=== PATIENT | male | born 1965 ===

== ENCOUNTER 2020-05-02 15:36 | Outpatient (REF) | payer OTHER, SELFPAY ==
[2020-05-02 16:28] LABS: Estimated Average Glucose 237 mg/dL; Hemoglobin A1c % 9.9 %
[2020-05-02 17:07] LABS: Alanine Aminotransferase 20 U/L (0-40); Albumin Level 4.3 g/dL (3.5-5.0); Alkaline Phosphatase 89 U/L (39-117); Anion Gap 13 (12-20); Aspartate Amino Transferase 17 U/L (5-37); Bilirubin Total 0.2 mg/dL (0.0-1.0); Blood Urea Nitrogen 17 mg/dL (9-16); Carbon Dioxide 26 mmol/L (22-29); Chloride 103 mmol/L (96-108); Estimated Glomerular Filt Rate > 60; Glucose Random 251 mg/dL (60-115); Potassium 4.7 mmol/L (3.3-5.1); Sodium 137 mmol/L (135-145); Total Protein 7.5 g/dL (6.5-8.0)
== END 2020-05-02 15:37 | disposition home or self-care (01) ==
LOC: HO.LAB 15:36
PROVIDERS: PCP Internal Medicine; Visit Provider Internal Medicine
DX: E11.9 Type 2 diabetes mellitus without complications (principal); I10 Essential (primary) hypertension
CPT/HCPCS: 36415; 80053; 83036

== ENCOUNTER 2020-05-11 16:03 | Emergency (ER) | payer OTHER, SELFPAY ==
--- NOTE | ~2020-05-11 | XR_ITS ---
EXAMINATION: XR CHEST CLINICAL INFORMATION: Cough COMPARISON: None TECHNIQUE: Frontal portable view of the chest was obtained. 8:24 PM FINDINGS: No significant abnormality is noted involving the heart, lungs, mediastinum, bony thorax or soft tissues. XR/XR chest 1V IMPRESSION: Unremarkable examination.
[2020-05-11 19:31] VITALS: BP 118/73; PULSE 74; RESP 16; TEMP 36.8; O2SAT 96; BMI 38.0
--- NOTE | 2020-05-11 20:03 | ED_ITS ---
HPI - General Adult General Chief complaint: General Medical Stated complaint: HBS Source: patient Mode of arrival: ambulatory Limitations: no limitations History of Present Illness HPI narrative: 54-year-old male past medical history of insulin-dependent diabetes, hypertension and obesity presents with several days of elevated glucose levels. He states that his blood sugars have been running on the 400 range which is abnormal for him. Today he had taken additional 12 units of insulin to bring his blood sugar down to 180. He does eat [employer] on a regular basis, drinks diet Coke, and eats rice and beans on a daily basis. He has been more thirsty and has been urinating much more than usual. He denies fevers or chills, chest pain or pressure, palpitations, shortness breath, abdominal pain, abdominal distention, pyuria, hematuria, diarrhea, constipation, edema, dizziness, weakness, lightheadedness, and edema. Related Data Allergies Allergy/AdvReac Type Severity Reaction Status Date / Time No Known Allergies Allergy Unverified 11/15/19 15:35 [No Known Allergies*] CHANTIX Allergy Unknown Uncoded 12/02/17 00:00 LISNOPRIL Allergy Unknown Uncoded 12/02/17 00:00 Review of Systems Review of Systems: Constitutional: No Fever, No Chills ENT/Mouth: No sore throat Eyes: No Eye Pain, No Swelling, No Redness Cardiovascular: No Chest Pain, No SOB Respiratory: No Cough, No Sputum, No Wheezing Gastrointestinal: No Nausea, no Vomiting, No Diarrhea, no abdominal pain Genitourinary: No Dysuria, positive urinary frequency, no Hematuria, no Flank Pain, no hesitancy Musculoskeletal: No joint pain, No Myalgias Skin: No Skin Lesions, No rash Neuro: No Weakness, No Numbness, No Headache Psych: No Anxiety/Panic, No Depression Heme/Lymph: No Bruising, No Lymphadenopathy Endocrine: Positive Polyuria, positive Polydipsia Yes all other systems are reviewed and are negative [facility] Past Medical History Attestation statement: The following information was validated with the patient. Source: unable to obtain Medical History Diabetes Hypertension Social History Social History Advance Directives: No Advance Directives Information Provided: Yes Physical Exam Vital Signs: Vital Signs: Last Vital Signs Temp 98.2 F 05/11/20 19:31 Pulse 74 05/11/20 19:31 Resp 16 05/11/20 19:31 BP 118/73 05/11/20 19:31 Pulse Ox 96 05/11/20 19:31 Body Mass Index 38.0 Appearance: Alert. Oriented X3. No acute distress. Eyes: Pupils equal, round and reactive to light. EOMI, sclera nonicteric ENT: Pharynx normal. Moist mucous membranes Neck: Normal inspection. Neck supple. No JVD CVS: Normal heart rate and rhythm. Pulses normal. Respiratory: No respiratory distress. Lung sounds clear to auscultation all lobes Abdomen: Soft and nontender. Obese Skin: Skin warm and dry. Normal skin color. Normal skin turgor. Extremities: No lower extremity edema. Moves all extremities against resistance, strength 5/5 to all extremities Neuro: No motor deficit. No sensory deficit. Gait well balanced well coordinated, cranial nerves 2-12 intact Course Course Course Narrative: 54-year-old male with diabetes, hypertension, and obesity presents with several days of elevated glucose, polyuria and excessive thirst. He needed to take an additional 12 units of insulin today to reduce his blood sugar to 183 from 400. He is not on any steroids, does not describe any illness, and does not adhere to a diabetic diet. Plan of care is for CBC, Chem 7, urinalysis and chest x-ray. CBC mild leukocytosis at 13, could possibly consistent with elevated glucose, urinalysis and chest x-ray are negative. Abdominal exam is nontender to palpation, negative Navarro, McBurney, no CVA tenderness. Plan of care is for patient to follow-up with his primary care physician as he may need medication adjustments. Patient verbalized understanding of and agrees to plan of care discharge home. Medical Decision Making Differential Diagnosis Differential Diagnosis: UTI, URI, non adherence to diabetic diet Medical Records Medical records reviewed: Yes I reviewed the patient's medical records. Lab Data Lab results reviewed: Yes I reviewed the patient's lab results. Result diagrams: 05/11/20 20:35 05/11/20 20:35 Labs: Lab Results 05/11/20 05/11/20 05/11/20 Range/Units 20:17 20:35 20:35 WBC 13.1 H (4.8-10.8) X10*3/uL RBC 5.26 (4.60-5.80) X10*6/uL Hgb 14.8 (14.0-18.0) g/dl Hct 45.1 (42-52) % MCV 85.7 (80-98) fL MCH 28.1 (27.0-33.0) pg MCHC 32.8 (31.0-36.0) g/dl RDW 13.0 (11.0-16.0) % Plt Count 316 (160-400) X10*3/uL MPV 11.6 (9.4-12.4) fL Immature Gran % (Auto) 0.4 (0.0-0.4) % Neut % (Auto) 53.3 (45-73) % Lymph % (Auto) 34.6 (20-40) % [place] % (Auto) 8.1 (2-11) % Eos % (Auto) 2.8 (0-4) % Baso % (Auto) 0.8 (0-2) % Lymph # (Auto) 4.6 (1.2-4.9) X10*3/uL [place] # (Auto) 1.1 (0.1-1.2) X10*3/uL Eos # (Auto) 0.4 (0.0-0.4) X10*3/uL Baso # (Auto) 0.1 (0.0-0.2) X10*3/uL Abs Immat Gran (auto) 0.05 H (0.00-0.03) X10*3/uL Absolute Neuts (auto) 7.0 (2.0-8.3) X10*3/uL Absolute Nucleated RBC 0.000 (0.0-0.012) X10*3/uL Nucleated RBC % (auto) 0.0 (0.0-0.2) /100WBC Sodium 139 (135-145) mmol/L Potassium 4.7 (3.3-5.1) mmol/L Chloride 103 (96-108) mmol/L Carbon Dioxide 28 (22-29) mmol/L Anion Gap 13 (12-20) BUN 19 H (9-16) mg/dL Creatinine 1.19 (0.5-1.4) mg/dL Estim Creat Clear Calc 91.1 Estimated GFR > 60 POC Glucose 198 H (60-115) mg/dL Random Glucose 183 H (60-115) mg/dL Calcium 10.2 (8.4-10.2) mg/dL Total Bilirubin 0.7 (0.0-1.0) mg/dL Direct Bilirubin 0.2 (0.0-0.5) mg/dL AST 22 (5-37) U/L ALT 24 (0-40) U/L Alkaline Phosphatase 94 (39-117) U/L Total Protein 7.6 (6.5-8.0) g/dL Albumin 4.2 (3.5-5.0) g/dL Lipase 32 (8-78) U/L Urine Color Urine Appearance Urine pH (5.0-8.0) Ur Specific [place] (1.005-1.025) Urine Protein (NEG-TRACE) MG/DL Urine Glucose (UA) (NEG) MG/DL Urine Ketones (NEG) MG/DL Urine Blood (NEG) Urine Nitrite (NEG) Ur Leukocyte Esterase (NEG) 05/11/20 Range/Units 20:35 WBC (4.8-10.8) X10*3/uL RBC (4.60-5.80) X10*6/uL Hgb (14.0-18.0) g/dl Hct (42-52) % MCV (80-98) fL MCH (27.0-33.0) pg MCHC (31.0-36.0) g/dl RDW (11.0-16.0) % Plt Count (160-400) X10*3/uL MPV (9.4-12.4) fL Immature Gran % (Auto) (0.0-0.4) % Neut % (Auto) (45-73) % Lymph % (Auto) (20-40) % [place] % (Auto) (2-11) % Eos % (Auto) (0-4) % Baso % (Auto) (0-2) % Lymph # (Auto) (1.2-4.9) X10*3/uL [place] # (Auto) (0.1-1.2) X10*3/uL Eos # (Auto) (0.0-0.4) X10*3/uL Baso # (Auto) (0.0-0.2) X10*3/uL Abs Immat Gran (auto) (0.00-0.03) X10*3/uL Absolute Neuts (auto) (2.0-8.3) X10*3/uL Absolute Nucleated RBC (0.0-0.012) X10*3/uL Nucleated RBC % (auto) (0.0-0.2) /100WBC Sodium (135-145) mmol/L Potassium (3.3-5.1) mmol/L Chloride (96-108) mmol/L Carbon Dioxide (22-29) mmol/L Anion Gap (12-20) BUN (9-16) mg/dL Creatinine (0.5-1.4) mg/dL Estim Creat Clear Calc Estimated GFR POC Glucose (60-115) mg/dL Random Glucose (60-115) mg/dL Calcium (8.4-10.2) mg/dL Total Bilirubin (0.0-1.0) mg/dL Direct Bilirubin (0.0-0.5) mg/dL AST (5-37) U/L ALT (0-40) U/L Alkaline Phosphatase (39-117) U/L Total Protein (6.5-8.0) g/dL Albumin (3.5-5.0) g/dL Lipase (8-78) U/L Urine Color YELLOW Urine Appearance CLEAR Urine pH 5.0 (5.0-8.0) Ur Specific [place] >= 1.030 H (1.005-1.025) Urine Protein NEG (NEG-TRACE) MG/DL Urine Glucose (UA) 250 H (NEG) MG/DL Urine Ketones NEG (NEG) MG/DL Urine Blood NEG (NEG) Urine Nitrite NEG (NEG) Ur Leukocyte Esterase NEG (NEG) Imaging Data Chest x-ray: Attestation: I personally reviewed and interpreted this imaging study as follows: Radiologist's impression: EXAMINATION: XR CHEST CLINICAL INFORMATION: Cough COMPARISON: None TECHNIQUE: Frontal portable view of the chest was obtained. 8:24 PM FINDINGS: No significant abnormality is noted involving the heart, lungs, mediastinum, bony thorax or soft tissues. XR/XR chest 1V IMPRESSION: Unremarkable examination. Discharge Plan Discharge Clinical Impression: Hyperglycemia due to type 2 diabetes mellitus Qualifiers: Diabetes mellitus director long term care insulin use: with custodial use Qualified Code(s): E11.65 - Type 2 diabetes mellitus with hyperglycemia Patient Disposition: Home, Self-Care Instructions: Type 2 Diabetes Management for Adults (ED) Additional Instructions: You were evaluated for elevated blood sugar. Please continue to use insulin as directed. Please follow-up with primary care physician as you may need her medications adjusted. Your CBC shows a mildly elevated white count at 13.1 which could be consistent with your elevated blood sugars over the past several days. Your chest x-ray is negative, urinalysis is negative. There is no indication of infection at this time. Thank you for choosing this emergency department for evaluation. Please follow-up with primary care physician as needed. Return to the emergency department for any new, concerning, or worsening symptoms. Interventions: ED Discharge Assessment Last Done: 05/11/20 22:11 Discharge Date/Time: 05/11/20 22:11
[2020-05-11 20:21] LABS: Glucose, Whole Blood 198 mg/dL (60-115)
[2020-05-11 20:54] LABS: MANUAL DIFF FLAG NO
[2020-05-11 20:55] LABS: Basophils Absolute Auto 0.1 X10*3/uL (0.0-0.2); Basophils Percent Auto 0.8 % (0-2); Eosinophils Absolute Auto 0.4 X10*3/uL (0.0-0.4); Eosinophils Percent Auto 2.8 % (0-4); Hematocrit 45.1 % (42-52); Hemoglobin 14.8 g/dl (14.0-18.0); Imm Gran Abs Auto 0.05 X10*3/uL (0.00-0.03); Imm Gran Pct Auto 0.4 % (0.0-0.4); Lymphocytes Absolute Auto 4.6 X10*3/uL (1.2-4.9); Lymphocytes Percent Auto 34.6 % (20-40); Mean Corpuscular HGB Conc 32.8 g/dl (31.0-36.0); Mean Corpuscular Hemoglobin 28.1 pg (27.0-33.0); Mean Corpuscular Volume 85.7 fL (80-98); Mean Platelet Volume 11.6 fL (9.4-12.4); Monocytes Absolute Auto 1.1 X10*3/uL (0.1-1.2); Monocytes Percent Auto 8.1 % (2-11); Neutrophils Percent Auto 53.3 % (45-73); Platelet Count 316 X10*3/uL (160-400); Red Blood Count 5.26 X10*6/uL (4.60-5.80); White Blood Count 13.1 X10*3/uL (4.8-10.8)
[2020-05-11 20:57] LABS: Glucose Urine UA 250 MG/DL (NEG); Leukocyte Esterase Urine NEG (NEG); Nitrite Urine NEG (NEG); Specific Gravity - Urine >= 1.030 (1.005-1.025); Urine Blood NEG (NEG); Urine Ketones NEG (NEG); Urine Protein NEG (NEG-TRACE)
[2020-05-11 20:58] LABS: Appearance Urine CLEAR; Color Urine YELLOW
--- NOTE | 2020-05-11 21:00 | PC.NURSE ---
PT TO ROOM #14, CHG INTO GOWN AND PA IN ROOM FOR EVAL. IV PLACED TO [facility] LABS DRAWN TO LAB, PT UP WITH STEADY GAIT TO RESTROOM FOR URINE SAMPLE FOR EVAL. POC 198. PT C/O FEELING TIRED ALL THE TIME. PT DENIES ANY OTHER COPLAINTS. PT ALERT, RESPIRATIONS EASY, N/L. SKIN W/D. WILL CONTINUE TO MONITOR PT.
[2020-05-11 21:28] LABS: Alanine Aminotransferase 24 U/L (0-40); Albumin Level 4.2 g/dL (3.5-5.0); Alkaline Phosphatase 94 U/L (39-117); Anion Gap 13 (12-20); Aspartate Amino Transferase 22 U/L (5-37); Bilirubin Direct 0.2 mg/dL (0.0-0.5); Bilirubin Total 0.7 mg/dL (0.0-1.0); Blood Urea Nitrogen 19 mg/dL (9-16); Calcium 10.2 mg/dL (8.4-10.2); Carbon Dioxide 28 mmol/L (22-29); Chloride 103 mmol/L (96-108); Creatinine Clr Calc Pharmacy 91.1; Estimated Glomerular Filt Rate > 60; Glucose Random 183 mg/dL (60-115); Lipase 32 U/L (8-78); Potassium 4.7 mmol/L (3.3-5.1); Sodium 139 mmol/L (135-145); Total Protein 7.6 g/dL (6.5-8.0)
[2020-05-12 07:59] LABS: Glucose, Whole Blood 178 mg/dL (60-115)
== END 2020-05-11 22:11 | disposition home or self-care (01) ==
PROVIDERS: Nurse Practitioner Family; Emergency Provider Internal Medicine; PCP Internal Medicine
DX: E11.65 Type 2 diabetes mellitus with hyperglycemia (principal); R05 Cough; I10 Essential (primary) hypertension; Z79.899 Other long term (current) drug therapy
CPT/HCPCS: 36415; 71045; 80048; 80076; 81003; 82947; 83690; 85025; 99283

== ENCOUNTER 2020-09-06 08:23 | Outpatient (REF) | payer OTHER, SELFPAY ==
[2020-09-06 09:13] LABS: Estimated Average Glucose 275 mg/dL; Hemoglobin A1c % 11.2 %
[2020-09-06 09:22] LABS: Alanine Aminotransferase 27 U/L (0-40); Alkaline Phosphatase 89 U/L (39-117); Anion Gap 13 (12-20); Aspartate Amino Transferase 19 U/L (5-37); Bilirubin Total 0.3 mg/dL (0.0-1.0); Blood Urea Nitrogen 12 mg/dL (9-16); Calcium 9.6 mg/dL (8.4-10.2); Carbon Dioxide 22 mmol/L (22-29); Chloride 105 mmol/L (96-108); Estimated Glomerular Filt Rate > 60; Glucose Random 280 mg/dL (60-115); Potassium 4.4 mmol/L (3.3-5.1); Sodium 136 mmol/L (135-145); Total Protein 6.8 g/dL (6.5-8.0)
== END 2020-09-06 08:24 | disposition home or self-care (01) ==
LOC: HO.LAB 08:23
PROVIDERS: PCP Internal Medicine; Visit Provider Internal Medicine
DX: E11.65 Type 2 diabetes mellitus with hyperglycemia (principal); I10 Essential (primary) hypertension; Z68.39 Body mass index [BMI] 39.0-39.9, adult
CPT/HCPCS: 36415; 80053; 83036

== ENCOUNTER 2020-09-27 07:45 | Outpatient (REF) | payer OTHER, SELFPAY ==
[2020-09-27 08:20] LABS: MANUAL DIFF FLAG NO
[2020-09-27 08:27] LABS: Basophils Absolute Auto 0.1 X10*3/uL (0.0-0.2); Basophils Percent Auto 0.6 % (0-2); Eosinophils Absolute Auto 0.3 X10*3/uL (0.0-0.4); Hematocrit 44.5 % (42-52); Hemoglobin 14.5 g/dl (14.0-18.0); Imm Gran Abs Auto 0.06 X10*3/uL (0.00-0.03); Imm Gran Pct Auto 0.4 % (0.0-0.4); Lymphocytes Absolute Auto 3.2 X10*3/uL (1.2-4.9); Lymphocytes Percent Auto 20.4 % (20-40); Mean Corpuscular HGB Conc 32.6 g/dl (31.0-36.0); Mean Corpuscular Hemoglobin 28.1 pg (27.0-33.0); Mean Corpuscular Volume 86.2 fL (80-98); Mean Platelet Volume 11.1 fL (9.4-12.4); Monocytes Absolute Auto 1.2 X10*3/uL (0.1-1.2); Monocytes Percent Auto 7.3 % (2-11); Neutrophils Percent Auto 69.3 % (45-73); Platelet Count 325 X10*3/uL (160-400); Red Blood Count 5.16 X10*6/uL (4.60-5.80); Red Cell Distribution Width 13.9 % (11.0-16.0); White Blood Count 15.8 X10*3/uL (4.8-10.8)
[2020-09-27 08:56] LABS: Creatinine Urine 118.55 mg/dL; Microalbum/Creatinine Ratio Ur 5.9 ug/mg cr
[2020-09-27 08:59] LABS: Alanine Aminotransferase 23 U/L (0-40); Albumin Level 4.3 g/dL (3.5-5.0); Alkaline Phosphatase 85 U/L (39-117); Anion Gap 14 (12-20); Aspartate Amino Transferase 20 U/L (5-37); Bilirubin Total 0.5 mg/dL (0.0-1.0); Blood Urea Nitrogen 15 mg/dL (9-16); Carbon Dioxide 22 mmol/L (22-29); Chloride 110 mmol/L (96-108); Cholesterol 145 mg/dL; Estimated Glomerular Filt Rate > 60; Glucose Random 152 mg/dL (60-115); HDL Cholesterol 27 mg/dL; LDL Cholesterol Calculated 81 mg/dl; Potassium 4.6 mmol/L (3.3-5.1); Sodium 141 mmol/L (135-145); Total Protein 7.4 g/dL (6.5-8.0); Triglycerides 188 mg/dL
[2020-09-27 09:05] LABS: Estimated Average Glucose 240 mg/dL
== END 2020-09-27 07:46 | disposition home or self-care (01) ==
LOC: HO.LAB 07:45
PROVIDERS: PCP Internal Medicine; Visit Provider Internal Medicine
DX: E11.65 Type 2 diabetes mellitus with hyperglycemia (principal); E78.2 Mixed hyperlipidemia; I10 Essential (primary) hypertension
CPT/HCPCS: 36415; 80053; 80061; 82043; 83036; 85025

== ENCOUNTER 2020-12-01 10:48 | Outpatient (REF) | payer OTHER, SELFPAY | END 2020-12-01 10:49 | disposition home or self-care (01) | LOC: HO.10HDLNP 10:48 | PROVIDERS: Visit Provider Internal Medicine | DX: E11.65 Type 2 diabetes mellitus with hyperglycemia (principal); E78.2 Mixed hyperlipidemia; M48.062 Spinal stenosis, lumbar region with neurogenic claudication; M51.16 Intervertebral disc disorders with radiculopathy, lumbar region; R30.0 Dysuria; R80.0 Isolated proteinuria | CPT/HCPCS: 87086 ==

== ENCOUNTER 2021-01-10 10:29 | Outpatient (REF) | payer OTHER, SELFPAY ==
[2021-01-10 11:44] LABS: Estimated Average Glucose 166 mg/dL; Hemoglobin A1c % 7.4 %
[2021-01-10 12:07] LABS: Creatinine Urine 197.39 mg/dL
[2021-01-10 12:10] LABS: Alanine Aminotransferase 21 U/L (0-40); Albumin Level 4.1 g/dL (3.5-5.0); Alkaline Phosphatase 67 U/L (39-117); Anion Gap 11 (12-20); Aspartate Amino Transferase 13 U/L (5-37); Bilirubin Total 0.2 mg/dL (0.0-1.0); Blood Urea Nitrogen 11 mg/dL (9-16); Calcium 9.7 mg/dL (8.4-10.2); Carbon Dioxide 28 mmol/L (22-29); Chloride 108 mmol/L (96-108); Cholesterol 132 mg/dL; Estimated Glomerular Filt Rate > 60; Glucose Random 145 mg/dL (60-115); HDL Cholesterol 31 mg/dL; LDL Cholesterol Calculated 74 mg/dl; Potassium 4.6 mmol/L (3.3-5.1); Sodium 142 mmol/L (135-145); Total Protein 7.1 g/dL (6.5-8.0); Triglycerides 139 mg/dL
[2021-01-10 12:29] LABS: Thyroid Stimulating Hormone 0.67 uIU/mL (0.32-4.0)
== END 2021-01-10 10:30 | disposition home or self-care (01) ==
LOC: HO.LAB 10:29
PROVIDERS: PCP Internal Medicine; Visit Provider Internal Medicine
DX: E11.65 Type 2 diabetes mellitus with hyperglycemia (principal); E78.2 Mixed hyperlipidemia; M48.062 Spinal stenosis, lumbar region with neurogenic claudication; M51.16 Intervertebral disc disorders with radiculopathy, lumbar region; R30.0 Dysuria; R80.0 Isolated proteinuria
CPT/HCPCS: 36415; 80053; 80061; 82043; 83036; 84443

== ENCOUNTER 2021-05-02 07:49 | Outpatient (REF) | payer OTHER, SELFPAY ==
[2021-05-02 08:19] LABS: Estimated Average Glucose 289 mg/dL; Hemoglobin A1c % 11.7 %
[2021-05-02 08:34] LABS: Alanine Aminotransferase 29 U/L (0-40); Albumin Level 3.8 g/dL (3.5-5.0); Alkaline Phosphatase 88 U/L (39-117); Anion Gap 10 (12-20); Aspartate Amino Transferase 25 U/L (5-37); Bilirubin Total 0.4 mg/dL (0.0-1.0); Blood Urea Nitrogen 11 mg/dL (9-16); Calcium 9.8 mg/dL (8.4-10.2); Carbon Dioxide 29 mmol/L (22-29); Chloride 105 mmol/L (96-108); Estimated Glomerular Filt Rate > 60; Glucose Random 268 mg/dL (60-115); Potassium 4.5 mmol/L (3.3-5.1); Sodium 139 mmol/L (135-145); Total Protein 6.7 g/dL (6.5-8.0)
== END 2021-05-02 07:50 | disposition home or self-care (01) ==
LOC: HO.LAB 07:49
PROVIDERS: PCP Internal Medicine; Visit Provider Internal Medicine
DX: E11.65 Type 2 diabetes mellitus with hyperglycemia (principal); I10 Essential (primary) hypertension; M54.50 Low back pain, unspecified
CPT/HCPCS: 36415; 80053; 83036

== ENCOUNTER → 2021-08-05 15:19 | Outpatient (BNVA) | payer OTHER, SELFPAY | PROVIDERS: PCP Internal Medicine; Visit Provider Internal Medicine Endocrinology, Diabetes & Metabolism | DX: E11.65 Type 2 diabetes mellitus with hyperglycemia (principal) | CPT/HCPCS: 82947; 83036 ==

== ENCOUNTER 2021-10-26 16:02 | Outpatient (REF) | payer OTHER, SELFPAY ==
--- NOTE | ~2021-10-26 | XR_ITS ---
EXAMINATION: XR SHOULDER, RIGHT CLINICAL INFORMATION: Pain COMPARISON: None TECHNIQUE: AP external rotation, Grashey, scapular Y, and axillary views of the right shoulder. FINDINGS: There is significant loss of right AC joint with moderate periarticular spurring. There is a small enthesophyte along the inferior acromion. The glenohumeral joint space is normal and unremarkable. The soft tissues are normal. XR/XR shoulder RT min 2V IMPRESSION: Severe degenerative changes right AC joint with inferior acromial spurring. No visible acute fracture or dislocation seen.
== END 2021-10-26 16:03 | disposition home or self-care (01) ==
LOC: HO.XRAY 16:02
PROVIDERS: PCP Internal Medicine; Visit Provider Internal Medicine
DX: M25.511 Pain in right shoulder (principal)
CPT/HCPCS: 73030

== ENCOUNTER 2021-11-01 10:24 | Emergency (ER) | payer OTHER, SELFPAY ==
[2021-11-01 11:07] VITALS: BP 152/89; PULSE 66; RESP 18; TEMP 35.9; O2SAT 98; BMI 37.3
--- NOTE | 2021-11-01 13:38 | ED_ITS ---
HPI - Extremity Problem General Chief complaint: Extremity Injury, Upper Stated complaint: R shoulder pain going into arm x2 weeks Time Seen by Provider: 11/01/21 12:57 Source: patient Mode of arrival: ambulatory Limitations: no limitations History of Present Illness HPI Narrative: Patient presents emergency department for evaluation of right shoulder pain. He states that this has been ongoing for 2 weeks, denies any trauma or known precipitating injury. He states that he had an x-ray ordered earlier this week by his primary care doctor, but he has not heard any response. He states he is currently taking pregabalin and oxycodone which is prescribed by his sports journalist for chronic back pain. He states that this is not helping the pain to his right shoulder. Denies any numbness or tingling to the extremity, or weakness to the arm. Denies any fevers or chills. Related Data Home Medications Medication Instructions Recorded Confirmed atorvastatin 20 mg tablet 20 mg PO DAILY 08/05/21 blood sugar diagnostic (FreeStyle #10 ea 08/05/21 Lite Strips) blood-glucose meter (FreeStyle #1 ea 08/05/21 Lite Meter kit) gabapentin 100 mg capsule 100 mg PO 08/05/21 glipizide 5 mg tablet, extended 5 mg PO DAILY 08/05/21 release 24 hr insulin detemir U-100 100 unit/mL 80 unit subcut BEDTIME 08/05/21 (3 mL) subcutaneous pen (Levemir FlexTouch U-100 Insulin) insulin lispro 100 unit/mL 25 unit subcut TID 08/05/21 subcutaneous pen (Humalog KwikPen (U-100) Insulin) lancets 28 gauge (FreeStyle #100 ea 08/05/21 Lancets) metformin 500 mg tablet,extended 1,000 mg PO BID 08/05/21 release 24 hr pen needle, diabetic 32 gauge x #50 ea 08/05/2132 (BD Latonya 2nd Gen Pen Needle) Previous Rx's Medication Instructions Recorded flash glucose scanning reader #1 ea 10/19/21 (FreeStyle Norma 2 [place]) flash glucose sensor (FreeStyle #1 ea 10/19/21 Norma 2 Sensor kit) Allergies Allergy/AdvReac Type Severity Reaction Status Date / Time No Known Allergies Allergy Verified 08/05/21 15:39 [No Known Allergies*] CHANTIX Allergy Unknown zaidi Uncoded 08/05/21 15:39 LISNOPRIL Allergy Unknown Unknown Uncoded 08/05/21 15:39 Review of Systems Review of Systems: Musculoskeletal: positive shoulder pain Yes all other systems are reviewed and are negative [facility] Past Medical History Attestation statement: The following information was validated with the patient. Source: old records reviewed Medical History Diabetes Hypertension Uncontrolled type 2 diabetes mellitus with hyperglycemia Surgical History No pertinent past surgical history Family History Family History Father Diabetes Mother Osteoporosis Social History Social History Patient Tobacco Use Status: Current someday Tobacco user Advance Directives: No Advance Directives Information Provided: No Physical Exam Vital Signs: Vital Signs: Last Vital Signs Temp 96.7 F L 11/01/21 11:07 Pulse 66 11/01/21 11:07 Resp 18 11/01/21 11:07 BP 152/89 H 11/01/21 11:07 Pulse Ox 98 11/01/21 11:07 O2 Del Method 11/01/21 11:07 BMI result Body Mass Index 37.3 Appearance: Alert.?Oriented to person, place and time. No acute distress.?Normal affect. Eyes: Pupils equal, round and reactive to light.? ENT: Pharynx normal.?? Neck: Normal inspection.? Neck supple.?? CVS: Heart sounds normal. Normal heart rate and rhythm.? Pulses normal.?? Respiratory: No respiratory distress.? Lung sounds clear to auscultation bilaterally?? Abdomen: Soft and non-tender. Skin: Skin warm and dry.? Normal skin color.? Extremities: limited AROM to the right shoulder, full AROM to the right elbow and wrist. Palpable tenderness along the AC joint. 2+ palpable radial pulse bilaterally Neuro: Moves all extremities spontaneously. Sensation intact bilaterally. no motor deficits Ambulates with normal steady gait. Course Course Course Narrative: patient is a 55-year-old male with a past medical history of type 2 diabetes and hypertension presenting to emergency department for evaluation of atraumatic right shoulder pain. He is neurovascularly intact distally. No weakness. outpatient x-ray on 10/26/2021 reveals severe degenerative changes of the AC joint with inferior acromial spurring. Has not had any evaluation through Orthopedics or referral from primary care. Patient made aware of findings of x- ray imaging. Advised that he needs to have further follow-up and evaluation with Orthopedics. Given he is currently prescribed oxycodone and Lyrica would not add additional pain medication on top of this aside from the use of NSAIDs, see denies any complications with his kidneys given he is a diabetic. Reviewed worrisome signs and symptoms the patient should return back to emergency department for. All questions were answered, and patient was discharged home in stable condition. MDM - Extremity (Nontraumatic) Medical Records Attestation: I reviewed the patient's medical records. Discharge Plan Discharge Clinical Impression: Degenerative joint disease of right acromioclavicular joint Patient Disposition: Home, Self-Care Instructions: Osteoarthritis (ED) Additional Instructions: As we discussed her x-ray reveals severe degenerative changes to your shoulder joint. For this you need to follow-up with orthopedics for further evaluation and treatment. Continue taking your pain medications as currently prescribed. You can take ibuprofen 200 mg, 3 tablets (600mg) every 6-8 hours as needed for pain, in addition to Tylenol 500 mg, 2 tablets (1,000mg) every 4-6 hours as needed for pain, but not to exceed 3 doses daily (3,000mg).? Return to the emergency department with any new or worsening symptoms or con cerns. Please follow-up with your primary care doctor Prescriptions: No Action (DME) FreeStyle Norma 2 [place] Misc See Rx Instructions .Route Qty: 1 0RF Rx Instructions: As directed (DME) FreeStyle Norma 2 Sensor Kit See Rx Instructions .Route Qty: 1 4RF Rx Instructions: As directed glipizide 5 mg tablet extended release 24hr 5 mg PO DAILY metformin 500 mg tablet extended release 24 hr 1,000 mg PO BID Levemir FlexTouch U-100 Insuln 100 unit/mL (3 mL) insulin pen 80 unit subcut BEDTIME gabapentin 100 mg capsule 100 mg PO insulin lispro [Humalog KwikPen Insulin] 100 unit/mL insulin pen 25 unit subcut TID (DME) FreeStyle Lite Strips Strip See Rx Instructions Not Applicable TID Qty: 10 Rx Instructions: As directed (DME) blood-glucose meter [FreeStyle Lite Meter] Kit See Rx Instructions .ROUTE .MEDSUPPLY Qty: 1 Rx Instructions: As directed (DME) lancets [FreeStyle Lancets] 28 gauge misc See Rx Instructions topical TID Qty: 100 Rx Instructions: As directed (DME) pen needle, diabetic [BD Latonya 2nd Gen Pen Needle] 32 gauge x 5/32 needle See Rx Instructions .ROUTE .MEDSUPPLY Qty: 50 Rx Instructions: As directed atorvastatin 20 mg tablet 20 mg PO DAILY Referrals: Ludy Jaramillo MD [Primary Care Provider] - Jese Jarquin PA-C [Physician Health Care Sanitary Technician] - Interventions: ED Discharge Assessment Last Done: 11/01/21 13:40 Discharge Date/Time: 11/01/21 13:40
== END 2021-11-01 13:40 | disposition home or self-care (01) ==
PROVIDERS: Emergency Provider Emergency Medicine; PCP Internal Medicine
DX: M19.011 Primary osteoarthritis, right shoulder (principal)
CPT/HCPCS: 99282

== ENCOUNTER → 2021-11-09 14:45 | Outpatient (BNVA) | payer OTHER, SELFPAY | PROVIDERS: PCP Internal Medicine; Visit Provider Physician Assistant | DX: M19.019 Primary osteoarthritis, unspecified shoulder (principal); M75.80 Other shoulder lesions, unspecified shoulder | CPT/HCPCS: 20610; J1020 ==

== ENCOUNTER → 2021-11-11 15:00 | Outpatient (BNVA) | payer OTHER, SELFPAY | PROVIDERS: PCP Internal Medicine; Visit Provider Internal Medicine Endocrinology, Diabetes & Metabolism | DX: E11.65 Type 2 diabetes mellitus with hyperglycemia (principal) | CPT/HCPCS: 82947; 83036 ==

== ENCOUNTER → 2022-01-01 10:12 | Outpatient (BNVA) | payer OTHER, SELFPAY | PROVIDERS: PCP Internal Medicine; Visit Provider Dietitian, Registered | DX: E11.65 Type 2 diabetes mellitus with hyperglycemia (principal) | CPT/HCPCS: 97802 ==

== ENCOUNTER 2022-02-19 07:29 | Outpatient (REF) | payer OTHER, SELFPAY ==
[2022-02-19 07:34] LABS: MANUAL DIFF FLAG NO
[2022-02-19 07:53] LABS: Basophils Absolute Auto 0.2 X10*3/uL (0.0-0.2); Basophils Percent Auto 1.2 % (0-2); Eosinophils Absolute Auto 0.6 X10*3/uL (0.0-0.4); Eosinophils Percent Auto 5.1 % (0-4); Hematocrit 46.8 % (42.0-52.0); Hemoglobin 15.2 g/dl (14.0-18.0); Imm Gran Abs Auto 0.06 X10*3/uL (0.00-0.03); Imm Gran Pct Auto 0.5 % (0.0-0.4); Lymphocytes Absolute Auto 3.2 X10*3/uL (1.2-4.9); Lymphocytes Percent Auto 25.7 % (20-40); Mean Corpuscular HGB Conc 32.5 g/dl (31.0-36.0); Mean Corpuscular Hemoglobin 27.7 pg (27.0-33.0); Mean Corpuscular Volume 85.4 fL (80.0-98.0); Mean Platelet Volume 11.4 fL (9.4-12.4); Monocytes Absolute Auto 0.9 X10*3/uL (0.1-1.2); Monocytes Percent Auto 7.6 % (2-11); Neutrophils Absolute Auto 7.5 x10*3/uL (2.0-8.3); Neutrophils Percent Auto 59.9 % (45-73); Platelet Count 292 X10*3/uL (160-400); Red Blood Count 5.48 X10*6/uL (4.60-5.80); Red Cell Distribution Width 14.6 % (11.0-16.0); White Blood Count 12.4 X10*3/uL (4.8-10.8)
[2022-02-19 08:04] LABS: Estimated Average Glucose 157 mg/dL; Hemoglobin A1c % 7.1 %
[2022-02-19 09:39] LABS: Microalbum/Creatinine Ratio Ur 7.2 ug/mg cr
[2022-02-19 12:23] LABS: Alanine Aminotransferase 73 U/L (0-40); Albumin Level 4.2 g/dL (3.5-5.0); Alkaline Phosphatase 80 U/L (39-117); Anion Gap 12 (12-20); Aspartate Amino Transferase 46 U/L (5-37); Bilirubin Total 0.4 mg/dL (0.0-1.0); Blood Urea Nitrogen 13 mg/dL (9-16); Calcium 9.8 mg/dL (8.4-10.2); Carbon Dioxide 26 mmol/L (22-29); Chloride 108 mmol/L (96-108); Cholesterol 222 mg/dL; Estimated Glomerular Filt Rate > 60; Glucose Random 198 mg/dL (60-115); HDL Cholesterol 26 mg/dL; LDL Cholesterol Calculated 130 mg/dl; Potassium 4.7 mmol/L (3.3-5.1); Sodium 141 mmol/L (135-145); Thyroid Stimulating Hormone 1.27 uIU/mL (0.32-4.0); Total Protein 7.3 g/dL (6.5-8.0); Triglycerides 333 mg/dL
== END 2022-02-19 07:30 | disposition home or self-care (01) ==
LOC: HO.LAB 07:29
PROVIDERS: PCP Internal Medicine; Visit Provider Internal Medicine
DX: E11.65 Type 2 diabetes mellitus with hyperglycemia (principal); E78.00 Pure hypercholesterolemia, unspecified; I10 Essential (primary) hypertension; M25.511 Pain in right shoulder; Z79.899 Other long term (current) drug therapy
CPT/HCPCS: 36415; 80053; 80061; 82043; 82947; 83036; 84443; 85025

== ENCOUNTER → 2022-03-25 14:25 | Outpatient (BNVA) | payer OTHER, SELFPAY | PROVIDERS: PCP Internal Medicine; Visit Provider Physician Assistant | DX: M19.011 Primary osteoarthritis, right shoulder (principal) | CPT/HCPCS: 20610; J1020 ==

== ENCOUNTER 2022-04-09 12:56 | Emergency (ER) | payer OTHER, SELFPAY ==
--- NOTE | ~2022-04-09 | CT_ITS ---
EXAMINATION: CT ABDOMEN AND PELVIS WITHOUT CONTRAST CLINICAL INFORMATION: Left lower quadrant abdominal pain. History of diverticulitis. COMPARISON: 04/11/2017 TECHNIQUE: Multidetector volumetric imaging was performed from the superior aspect of the liver through the pubic symphysis. Sagittal and coronal reformatted images were obtained on the technologist's workstation. This CT examination was performed using dose optimization techniques as appropriate, variously including the following: *Automated exposure control *Adjustment of mA and/or kV according to patient size (this includes techniques or standardized protocols for targeted exams where dose is matched to indication/reason for exam; i.e. extremities or head) *Use of iterative reconstruction technique DLP: 1004 mGy-cm FINDINGS: LUNG BASES: The visualized lung bases are unremarkable. LIVER, GALLBLADDER, AND BILIARY TREE: The liver is normal in size and shape with decreased attenuation. No focal hepatic lesion or biliary ductal dilatation is present. The gallbladder is unremarkable with no evidence of radiopaque gallstones, gallbladder wall thickening, or obvious pericholecystic inflammatory changes. PANCREAS: Unremarkable. SPLEEN: Unremarkable. ADRENAL GLANDS: Unremarkable. KIDNEYS AND URETERS: The kidneys are normal in size, shape, and attenuation. No hydronephrosis or hydroureter. 0.2 cm left lower pole renal calculus is 13.5 cm from the posterior axillary line. There is also a 0.2 cm right midpole renal calculus. BLADDER: Unremarkable. GASTROINTESTINAL TRACT: The stomach is unremarkable. Normal caliber small bowel. No obstruction. There is colonic diverticulosis present. There is wall thickening at the distal descending/proximal sigmoid colon with adjacent inflammation, consistent with acute diverticulitis. No free air or fluid collection. ABDOMINAL WALL: No significant hernia is appreciated. LYMPH NODES: Normal. VASCULAR: Unremarkable. PELVIC VISCERA: The prostate and seminal vesicles are unremarkable. OSSEOUS STRUCTURES: No acute or suspicious osseous abnormality. Mild degenerative change in the spine. CT/CT abdomen pelvis wo IV con IMPRESSION: 1. Acute diverticulitis at the distal descending/proximal sigmoid colon. No free air or fluid collection. 2. Hepatic steatosis. 3. Nonobstructing tiny bilateral renal calculi. Fleischner guidelines were followed.
[2022-04-09 13:13] VITALS: BP 112/64; PULSE 78; RESP 18; TEMP 36.6; O2SAT 97; BMI 38.7
--- NOTE | 2022-04-09 13:13 | ED_ITS ---
HPI - Abdominal Pain General Chief Complaint: Abdominal Pain Stated Complaint: Back & Low Abd Pain Time Seen by Provider: 04/09/22 16:00 Source: patient Mode of arrival: ambulatory Limitations: no limitations History of Present Illness HPI narrative: 56yoM c PMHX c of DM, HTN and Diverticulitis presenting to the ED with complaints Nausea, LLQ abd, flank, left back pain since last week worse today. Was sent by the urgent care by YEN Ko. Denies fevers, vomiting, diarrhea, black or bloody stools, recent travel or sick contacts or any other symptoms complaints or concerns at this time. MD elicited complaint: abdominal pain Pertinent past history: diverticulitis Onset (ago): week(s) (1) Pain Consistency: constant Location: LLQ Severity: moderate Quality: cramping, aching and sharp Radiation: L flank and back Exacerbating factors: nothing Relieving factors: nothing Associated symptoms: denies other symptoms and nausea Related Data Home Medications Medication Instructions Recorded Confirmed blood sugar diagnostic (FreeStyle #10 ea 08/05/21 Lite Strips) blood-glucose meter (FreeStyle #1 ea 08/05/21 Lite Meter kit) lancets 28 gauge (FreeStyle #100 ea 08/05/21 Lancets) metformin 500 mg tablet,extended 1,000 mg PO BID 08/05/21 release 24 hr pen needle, diabetic 32 gauge x #50 ea 08/05/21 (BD Latonya 2nd Gen Pen Needle) diclofenac sodium 75 mg 75 mg PO BID 11/09/21 tablet,delayed release losartan 100 mg tablet 100 mg PO DAILY 11/09/21 oxycodone 10 mg tablet 10 mg PO TID PRN severe pain 11/09/21 pregabalin 300 mg capsule 300 mg PO BID 11/09/21 gabapentin 100 mg capsule 100 mg PO PRN 03/25/22 rosuvastatin 20 mg tablet 20 mg PO BEDTIME 03/25/22 Previous Rx's Medication Instructions Recorded flash glucose scanning reader #1 ea 10/19/21 (FreeStyle Norma 2 [place]) tirzepatide 7.5 mg/0.5 mL 7.5 mg (0.5 mL) subcut QWEEK #2 mL 02/19/22 subcutaneous pen injector (Claus) flash glucose sensor (FreeStyle #3 ea 04/06/22 Norma 2 Sensor kit) amoxicillin 875 mg-potassium 1 tab PO BID 10 days #20 tabs 04/09/22 clavulanate 125 mg tablet ibuprofen 800 mg tablet 800 mg PO Q8H PRN pain #14 tabs 04/09/22 ondansetron HCl 4 mg tablet 4 mg PO Q8H #14 tabs 04/09/22 oxycodone 5 mg tablet 5 mg PO Q6H PRN pain #14 tabs 04/09/22 Allergies Allergy/AdvReac Type Severity Reaction Status Date / Time CHANTIX Allergy Unknown zaidi Uncoded 04/09/22 12:06 LISNOPRIL Allergy Unknown Unknown Uncoded 04/09/22 12:06 Review of Systems Review of Systems Constitutional : No Fever, No Chills, No Night Sweats, No Fatigue, No Malaise Cardiovascular : No Chest Pain, No SOB Respiratory : No Cough, No Sputum, No Wheezing, No Dyspnea Gastrointestinal : + Nausea, No Vomiting, No Diarrhea, + abdominal Pain, No Hematochezia, No Melena Genitourinary : No irregular bleeding, No Dysuria, No Urinary Frequency, No Hematuria,No Urinary Incontinence, No Urgency, No Flank Pain Musculoskeletal : No joint pain, No Myalgias, No Joint Swelling Skin : No Skin Lesions, No rash Neuro : No Weakness, No Numbness, No Paresthesias, No Loss of Consciousness, No Dizziness, No Headache Heme/Lymph: No Lymphadenopathy Endocrine : No Temperature Intolerance Yes all other systems are reviewed and are negative [facility] Past Medical History Attestation statement: The following information was validated with the patient. 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 Oriented X3. No acute distress. Head: Normal external exam. Normocephalic. Eyes: PERRLA. EOMI. Conjunctiva and sclera normal. Eyelids normal. ENT: Pharynx normal. Uvula midline. Moist mucous membranes. No trismus noted. No drooling noted. No muffled voice noted. Neck: Normal inspection. Neck supple. FROM. No adenopathy. No meningeal signs. CVS: Normal heart rate and rhythm. Heart sound normal. No murmurs noted. Pulses normal throughout. Respiratory: No respiratory distress. Painless inspiration. Breath sounds normal. No wheezes/rales/rhonchi noted. Chest nontender. No accessory muscle usage noted or decreased air movement noted. Abdomen: Soft and moderate tenderness palpation to left lower quadrant/left flank with guarding. Nondistended. No rigidity. Bowel sounds normal in all 4 quadrants. No distention noted. No organomegaly noted. No visible injury noted. No rebound tenderness. Negative Rovsing sign. Negative obturator's sign. Negative psoas sign. Negative Navarro sign. Back: No CVA tenderness. Full range of motion noted. Skin: Skin warm and dry. Normal skin color. Normal skin turgor. No rashes/lesions/lacerations noted. Extremities: Extremities exhibit normal range of motion. Extremities nontender. Neuro: Oriented X 3. No motor deficit. No sensory deficit. Reflexes normal. Normal steady gait. CN's II-XII intact bilaterally? Course Course Course Narrative: RME- 13:16pm 56yoM c PMHX c of DM, HTN and Diverticulitis presenting to the ED with complaints Nausea, LLQ abd, flank, left back pain and diarrhea since last week worse today. Was sent by the urgent care by YEN Ko. Denies fevers, vomiting, black or bloody stools, recent travel or sick contacts or any other symptoms complaints or concerns at this time. Plan: Will obtain labs, UA, COVID/RSV/flu swab and a CT scan abdomen pelvis with IV contrast. Patient will be sent back to the waiting room to be evaluated in the ED. Reevaluation(s) Reevaluation #1: Labs reviewed patient with leukocytosis of 19,000. BUN 18. Random glucose 359. ALT 41. Otherwise all other labs are within normal limits. Patient negative for COVID/RSV/flu. CT scan revealed Acute diverticulitis at the distal descending/proximal sigmoid colon. No free air or fluid collection. Hepatic steatosis. Nonobstructing tiny bilateral renal calculi. Plan: Therefore I did consider IV antibiotics and possible admission although patient is tolerating p.o. fluids/solids. Is not having any vomiting or diarrhea. Pain is controlled. Therefore will DC home with antibiotics and symptomatic treatment instructions return if any new or worsening symptoms follow up with PCP and GI referral I given the 2. Patient understands agrees with this plan. Time: 16:09 Medical Decision Making Admission/Observation Consideration of admission/observation: Escalation of care including admission/observation considered I did consider admission although patient has not been on any antibiotics is tolerating p.o. fluids/solids and pain is controlled. Lab Data MDM Lab Attestation statement: I reviewed the patient's lab results. 04/09/22 14:16 04/09/22 14:16 Labs: Lab Results 04/09/22 04/09/22 04/09/22 Range/Units 14:16 14:16 14:16 WBC 19.2 H (4.8-10.8) X10*3/uL RBC 5.43 (4.60-5.80) X10*6/uL Hgb 14.9 (14.0-18.0) g/dl Hct 44.5 (42.0-52.0) % MCV 82.0 (80.0-98.0) fL MCH 27.4 (27.0-33.0) pg MCHC 33.5 (31.0-36.0) g/dl RDW 13.9 (11.0-16.0) % Plt Count 276 (160-400) X10*3/uL MPV 11.5 (9.4-12.4) fL Immature Gran % (Auto) 0.3 (0.0-0.4) % Neut % (Auto) 73.1 H (45-73) % Lymph % (Auto) 18.0 L (20-40) % [place] % (Auto) 6.4 (2-11) % Eos % (Auto) 1.7 (0-4) % Baso % (Auto) 0.5 (0-2) % Lymph # (Auto) 3.5 (1.2-4.9) X10*3/uL [place] # (Auto) 1.2 (0.1-1.2) X10*3/uL Eos # (Auto) 0.3 (0.0-0.4) X10*3/uL Baso # (Auto) 0.1 (0.0-0.2) X10*3/uL Abs Immat Gran (auto) 0.05 H (0.00-0.03) X10*3/uL Absolute Neuts (auto) 14.0 H (2.0-8.3) x10*3/uL Absolute Nucleated RBC 0.000 (0.0-0.012) X10*3/uL Nucleated RBC % (auto) 0.0 (0.0-0.2) /100WBC PT 13.2 H (10.0-13.1) SEC INR 1.1 (0.9-1.1) Sodium 136 (135-145) mmol/L Potassium 4.7 (3.3-5.1) mmol/L Chloride 104 (96-108) mmol/L Carbon Dioxide 25 (22-29) mmol/L Anion Gap 12 (12-20) BUN 18 H (9-16) mg/dL Creatinine 1.20 (0.5-1.4) mg/dL Estim Creat Clear Calc 89.1 Estimated GFR > 60 Random Glucose 359 H* (60-115) mg/dL Calcium 9.7 (8.4-10.2) mg/dL Magnesium 2.1 (1.6-2.6) mg/dL Total Bilirubin 0.6 (0.0-1.0) mg/dL AST 19 (5-37) U/L ALT 41 H (0-40) U/L Alkaline Phosphatase 86 (39-117) U/L Total Protein 6.9 (6.5-8.0) g/dL Albumin 4.0 (3.5-5.0) g/dL Lipase 13 (8-78) U/L Influenza Type A (PCR) (Negative) Influenza Type B (PCR) (Negative) RSV RNA Qual (PCR) (Negative) SARS-CoV-2 RNA (RT-PCR) (Negative) 04/09/22 Range/Units 14:16 WBC (4.8-10.8) X10*3/uL RBC (4.60-5.80) X10*6/uL Hgb (14.0-18.0) g/dl Hct (42.0-52.0) % MCV (80.0-98.0) fL MCH (27.0-33.0) pg MCHC (31.0-36.0) g/dl RDW (11.0-16.0) % Plt Count (160-400) X10*3/uL MPV (9.4-12.4) fL Immature Gran % (Auto) (0.0-0.4) % Neut % (Auto) (45-73) % Lymph % (Auto) (20-40) % [place] % (Auto) (2-11) % Eos % (Auto) (0-4) % Baso % (Auto) (0-2) % Lymph # (Auto) (1.2-4.9) X10*3/uL [place] # (Auto) (0.1-1.2) X10*3/uL Eos # (Auto) (0.0-0.4) X10*3/uL Baso # (Auto) (0.0-0.2) X10*3/uL Abs Immat Gran (auto) (0.00-0.03) X10*3/uL Absolute Neuts (auto) (2.0-8.3) x10*3/uL Absolute Nucleated RBC (0.0-0.012) X10*3/uL Nucleated RBC % (auto) (0.0-0.2) /100WBC PT (10.0-13.1) SEC INR (0.9-1.1) Sodium (135-145) mmol/L Potassium (3.3-5.1) mmol/L Chloride (96-108) mmol/L Carbon Dioxide (22-29) mmol/L Anion Gap (12-20) BUN (9-16) mg/dL Creatinine (0.5-1.4) mg/dL Estim Creat Clear Calc Estimated GFR Random Glucose (60-115) mg/dL Calcium (8.4-10.2) mg/dL Magnesium (1.6-2.6) mg/dL Total Bilirubin (0.0-1.0) mg/dL AST (5-37) U/L ALT (0-40) U/L Alkaline Phosphatase (39-117) U/L Total Protein (6.5-8.0) g/dL Albumin (3.5-5.0) g/dL Lipase (8-78) U/L Influenza Type A (PCR) NEGATIVE (Negative) Influenza Type B (PCR) NEGATIVE (Negative) RSV RNA Qual (PCR) NEGATIVE (Negative) SARS-CoV-2 RNA (RT-PCR) NEGATIVE (Negative) Independent Interpretation I performed an independent interpretation of an: CT Scan Interpretation: I discussed the CT scan with the patient reviewed that myself. There is no perforation or abscess. Radiology Impression Discussion of test interpretation with radiology: I have reviewed the radiologist's reading. Radiologist Impression: FINDINGS: LUNG BASES: The visualized lung bases are unremarkable.? LIVER, GALLBLADDER, AND BILIARY TREE: The liver is normal in size and shape with decreased attenuation. No focal hepatic lesion or biliary ductal dilatation is present. The gallbladder is unremarkable with no evidence of radiopaque gallstones, gallbladder wall thickening, or obvious pericholecystic inflammatory changes.? PANCREAS: Unremarkable.? SPLEEN: Unremarkable.? ADRENAL GLANDS: Unremarkable.? KIDNEYS AND URETERS: The kidneys are normal in size, shape, and attenuation. No hydronephrosis or hydroureter. 0.2 cm left lower pole renal calculus is 13.5 cm from the posterior axillary line. There is also a 0.2 cm right midpole renal calculus. BLADDER: Unremarkable.? GASTROINTESTINAL TRACT: The stomach is unremarkable. Normal caliber small bowel. No obstruction. There is colonic diverticulosis present. There is wall thickening at the distal descending/proximal sigmoid colon with adjacent inflammation, consistent with acute diverticulitis. No free air or fluid collection.? ABDOMINAL WALL: No significant hernia is appreciated.? LYMPH NODES: Normal. VASCULAR: Unremarkable. PELVIC VISCERA: The prostate and seminal vesicles are unremarkable.? OSSEOUS STRUCTURES: No acute or suspicious osseous abnormality. Mild degenerative change in the spine.? CT/CT abdomen pelvis wo IV con IMPRESSION: 1.? Acute diverticulitis at the distal descending/proximal sigmoid colon. No free air or fluid collection. 2.? Hepatic steatosis. 3.? Nonobstructing tiny bilateral renal calculi. ? Fleischner guidelines were followed. External Record Review External record reviewed: Inpatient record, Office record, Outpatient record, Prior outpatient labs, Prior outpatient radiology, Primary care record and Outside ED record Prescription Management I considered prescription management with: Pain Medication and Antibiotic Chronic Conditions Patient?s care impacted by: Diabetes, Hypertension and Other (Diverticulitis) Discharge Plan Discharge Clinical Impression: Diverticulitis, Calculus of kidney Patient Disposition: Home, Self-Care Instructions: Diverticulitis (ED), Kidney Stones (ED), Diverticulitis Diet (ED) Prescriptions: New amoxicillin-pot clavulanate 875-125 mg tablet 1 tab PO BID 10 Days Qty: 20 0RF ibuprofen 800 mg tablet 800 mg PO Q8H PRN (Reason: pain) Qty: 14 0RF ondansetron HCl 4 mg tablet 4 mg PO Q8H Qty: 14 0RF oxycodone 5 mg tablet 5 mg PO Q6H PRN (Reason: pain) Qty: 14 0RF Rx Instructions: Partial Fill upon patient request. No Action (DME) FreeStyle Norma 2 [place] Misc See Rx Instructions .Route Qty: 1 0RF Rx Instructions: As directed (DME) FreeStyle Norma 2 Sensor Kit See Rx Instructions .ROUTE .COMPLEX Qty: 3 0RF Dose Instruction: USE DIRECTED Rx Instructions: USE DIRECTED Mounjaro 7.5 mg/0.5 mL pen injector 7.5 mg subcut QWEEK Qty: 2 5RF metformin 500 mg tablet extended release 24 hr 1,000 mg PO BID (DME) FreeStyle Lite Strips Strip See Rx Instructions Not Applicable TID Qty: 10 Rx Instructions: As directed (DME) blood-glucose meter [FreeStyle Lite Meter] Kit See Rx Instructions .ROUTE .MEDSUPPLY Qty: 1 Rx Instructions: As directed (DME) lancets [FreeStyle Lancets] 28 gauge misc See Rx Instructions topical TID Qty: 100 Rx Instructions: As directed (DME) pen needle, diabetic [BD Latonya 2nd Gen Pen Needle] 32 gauge x 5/32 needle See Rx Instructions .ROUTE .MEDSUPPLY Qty: 50 Rx Instructions: As directed gabapentin 100 mg capsule 100 mg PO PRN diclofenac sodium 75 mg tablet,delayed release (DR/EC) 75 mg PO BID oxycodone 10 mg tablet 10 mg PO TID PRN (Reason: severe pain) pregabalin 300 mg capsule 300 mg PO BID losartan 100 mg tablet 100 mg PO DAILY rosuvastatin 20 mg tablet 20 mg PO BEDTIME Referrals: [facility] [place] [facility] [Provider Group] (Call to make a follow-up appointment) Ludy Jaramillo MD [Primary Care Provider] - 2 days
[2022-04-09 14:21] LABS: MANUAL DIFF FLAG NO
[2022-04-09 14:22] LABS: Basophils Absolute Auto 0.1 X10*3/uL (0.0-0.2); Basophils Percent Auto 0.5 % (0-2); Eosinophils Absolute Auto 0.3 X10*3/uL (0.0-0.4); Eosinophils Percent Auto 1.7 % (0-4); Hematocrit 44.5 % (42.0-52.0); Hemoglobin 14.9 g/dl (14.0-18.0); Imm Gran Abs Auto 0.05 X10*3/uL (0.00-0.03); Imm Gran Pct Auto 0.3 % (0.0-0.4); Lymphocytes Absolute Auto 3.5 X10*3/uL (1.2-4.9); Mean Corpuscular HGB Conc 33.5 g/dl (31.0-36.0); Mean Corpuscular Hemoglobin 27.4 pg (27.0-33.0); Mean Platelet Volume 11.5 fL (9.4-12.4); Monocytes Absolute Auto 1.2 X10*3/uL (0.1-1.2); Monocytes Percent Auto 6.4 % (2-11); Neutrophils Percent Auto 73.1 % (45-73); Platelet Count 276 X10*3/uL (160-400); Red Blood Count 5.43 X10*6/uL (4.60-5.80); Red Cell Distribution Width 13.9 % (11.0-16.0); White Blood Count 19.2 X10*3/uL (4.8-10.8)
[2022-04-09 14:30] LABS: INTERNATIONAL NORM RATIO 1.1 (0.9-1.1); Prothrombin Time 13.2 SEC (10.0-13.1)
[2022-04-09 14:49] LABS: Alanine Aminotransferase 41 U/L (0-40); Alkaline Phosphatase 86 U/L (39-117); Anion Gap 12 (12-20); Aspartate Amino Transferase 19 U/L (5-37); Bilirubin Total 0.6 mg/dL (0.0-1.0); Blood Urea Nitrogen 18 mg/dL (9-16); Calcium 9.7 mg/dL (8.4-10.2); Carbon Dioxide 25 mmol/L (22-29); Chloride 104 mmol/L (96-108); Creatinine Clr Calc Pharmacy 89.1; Estimated Glomerular Filt Rate > 60; Glucose Random 359 mg/dL (60-115); Lipase 13 U/L (8-78); Magnesium 2.1 mg/dL (1.6-2.6); Potassium 4.7 mmol/L (3.3-5.1); Sodium 136 mmol/L (135-145); Total Protein 6.9 g/dL (6.5-8.0)
[2022-04-09 15:00] LABS: Influenza A PCR NEGATIVE (Negative); Influenza B PCR NEGATIVE (Negative); Resp Syncy Virus RNA Qual PCR NEGATIVE (Negative); SARS COV2 PCR INHOUSE NEGATIVE (Negative)
== END 2022-04-09 16:09 | disposition home or self-care (01) ==
PROVIDERS: Physician Assistant Medical; Emergency Provider Student in an Organized Health Care Education/Training Program; PCP Internal Medicine
DX: K57.32 Diverticulitis of large intestine without perforation or abscess without bleeding (principal); N20.0 Calculus of kidney; M54.50 Low back pain, unspecified; E11.9 Type 2 diabetes mellitus without complications; I10 Essential (primary) hypertension; R10.32 Left lower quadrant pain; Z20.822 Contact with and (suspected) exposure to COVID-19; Z20.828 Contact with and (suspected) exposure to other viral communicable diseases; Z79.899 Other long term (current) drug therapy; Z79.4 Long term (current) use of insulin; F17.200 Nicotine dependence, unspecified, uncomplicated; Z71.6 Tobacco abuse counseling
CPT/HCPCS: 0241U; 36415; 74176; 80053; 83690; 83735; 85025; 85610; 99282; 99284

== ENCOUNTER 2022-06-19 07:29 | Outpatient (REF) | payer OTHER, SELFPAY ==
[2022-06-19 08:15] LABS: Estimated Average Glucose 212 mg/dL
[2022-06-19 08:39] LABS: Alanine Aminotransferase 24 U/L (0-40); Albumin Level 3.8 g/dL (3.5-5.0); Alkaline Phosphatase 84 U/L (39-117); Anion Gap 10 (12-20); Aspartate Amino Transferase 25 U/L (5-37); Bilirubin Total 0.3 mg/dL (0.0-1.0); Blood Urea Nitrogen 15 mg/dL (9-16); Calcium 9.6 mg/dL (8.4-10.2); Carbon Dioxide 26 mmol/L (22-29); Chloride 109 mmol/L (96-108); Cholesterol 146 mg/dL; Estimated Glomerular Filt Rate > 60; Glucose Random 208 mg/dL (60-115); HDL Cholesterol 24 mg/dL; LDL Cholesterol Calculated 63 mg/dl; Potassium 4.6 mmol/L (3.3-5.1); Sodium 140 mmol/L (135-145); Total Protein 6.4 g/dL (6.5-8.0); Triglycerides 296 mg/dL
[2022-06-19 08:58] LABS: Prostate Specific Antigen 0.36 ng/mL (<0.05-4.0)
== END 2022-06-19 07:30 | disposition home or self-care (01) ==
LOC: HO.LAB 07:29
PROVIDERS: PCP Internal Medicine; Visit Provider Internal Medicine
DX: Z00.00 Encounter for general adult medical examination without abnormal findings (principal); E11.9 Type 2 diabetes mellitus without complications; E78.2 Mixed hyperlipidemia; M54.50 Low back pain, unspecified; R74.01 Elevation of levels of liver transaminase levels; Z12.5 Encounter for screening for malignant neoplasm of prostate
CPT/HCPCS: 36415; 80053; 80061; 83036; 84153

== ENCOUNTER → 2022-06-22 15:25 | Outpatient (BNVA) | payer OTHER, SELFPAY | PROVIDERS: PCP Internal Medicine; Visit Provider Internal Medicine Endocrinology, Diabetes & Metabolism | DX: E11.65 Type 2 diabetes mellitus with hyperglycemia (principal) | CPT/HCPCS: 82947 ==

== ENCOUNTER 2022-08-16 09:59 | Outpatient (REF) | payer OTHER, SELFPAY ==
--- NOTE | ~2022-08-16 | XR_ITS ---
EXAMINATION: XR FOOT, RIGHT CLINICAL INFORMATION: Right foot injury. Great toe. COMPARISON: None available. TECHNIQUE: Three-view right foot. FINDINGS: There is no evidence of acute fracture or dislocation of the right foot. No destructive bony lesions identified. Joint spaces maintained. There is some mild soft tissue swelling seen about the 1st digit. XR/XR foot RT min 3V IMPRESSION: No significant bony abnormality of the right foot identified.
[2022-08-16 11:54] LABS: Anion Gap 11 (12-20); Blood Urea Nitrogen 15 mg/dL (9-16); Calcium 9.9 mg/dL (8.4-10.2); Carbon Dioxide 25 mmol/L (22-29); Chloride 110 mmol/L (96-108); Estimated Glomerular Filt Rate > 60; Glucose Random 128 mg/dL (60-115); Sodium 142 mmol/L (135-145)
== END 2022-08-16 10:00 | disposition home or self-care (01) ==
LOC: HO.XRAY 09:59
PROVIDERS: Absent Provider Internal Medicine Endocrinology, Diabetes & Metabolism; PCP Internal Medicine; Visit Provider Internal Medicine
DX: S99.921A Unspecified injury of right foot, initial encounter (principal); X58.XXXA Exposure to other specified factors, initial encounter; Y93.9 Activity, unspecified; Y92.9 Unspecified place or not applicable; Y99.9 Unspecified external cause status; E11.65 Type 2 diabetes mellitus with hyperglycemia
CPT/HCPCS: 36415; 73630; 80048

== ENCOUNTER → 2022-08-18 11:26 | Outpatient (BNVA) | payer OTHER, SELFPAY | PROVIDERS: PCP Internal Medicine; Visit Provider Internal Medicine ==

== ENCOUNTER 2022-09-29 15:12 | Outpatient (AMB) | payer OTHER, SELFPAY ==
--- NOTE | 2022-09-29 15:14 | MHC.OFFVIS ---
Intake Vital Signs 09/29/22 15:15 Height 5 ft 10 in Weight 251 lb 1.704 oz BMI 36.0 BP 124/86 Blood Pressure Location Lt brachial Position Sitting Pulse 80 Intake Visit Reasons: f/u Type 2 DM Intake Note: Patient present today to follow up on Type 2 Diabetes Mellitus. Patient receives DME supplies through: Pharmacy Last Diabetic Eye exam: June 2022 Last Podiatry Visit: None Random Glucose: 89 mg/dl HgA1C: 6.4 Environmental Communications Specialist Required: No Accompanied by: Self / Same As Patient Allergies LISNOPRIL Allergy (Mild, Uncoded 09/29/22 15:27) Unknown CHANTIX Adverse Reaction (Unknown, Uncoded 08/18/22 11:35) zaidi Medication List - Last Reconciled 09/29/22 by Cameron Castillo MD aspirin 81 mg PO DAILY atorvastatin 20 mg PO BEDTIME blood sugar diagnostic (FreeStyle Lite Strips) As directed blood-glucose meter (FreeStyle Lite Meter kit) As directed once a day diclofenac sodium 75 mg PO BID flash glucose scanning reader (FreeStyle Norma 2 [place]) As directed flash glucose sensor (FreeStyle Norma 2 Sensor kit) DIRECTED TO TEST BLOOD SUGAR DIRECTED hydrocodone bitartrate ER (Hysingla ER) 30 mg PO BEDTIME lancets (FreeStyle Lancets) As directed once a day losartan 100 mg PO DAILY metformin ER 1,000 mg PO BID oxycodone 10 mg PO TID PRN peg 3350-electrolytes 236-22.74-6.74 -5.86 gram (Golytely) 240 mL PO Q10M pen needle, diabetic (BD Latonya 2nd Gen Pen Needle) As directed once a week pregabalin (Lyrica) 300 mg PO DAILY sennosides-docusate sodium 8.6-50 mg (Stimulant Laxative Plus) 1 tab-cap PO BEDTIME tirzepatide (Mounjaro) 10 mg (0.5 mL) subcut QWEEK varenicline 0.5 mg PO DIRECTED HPI HPI Comments History of Present Illness Details 56 YO M who is seen in consultation for T2DM at the request of PCP. Initially diagnosed with T2DM in 3 yrs ago . Was initially started on treatment with metformin and glipizide . Current regimen Metformin 1000 mg BID Levemir 80 units not taking Humalog 25 units AC TID . not taking Mounjaro 7,5 mg mg q wkly Freestyle Norma download shows he is wearing the CGMS 41% of the time. Average glucose is 98 with variability of 28.8%. Glucoses are in target range 95% of the time with 0% hyperglycemia and 0% very hyperglycemic and 5% hypoglycemia. pattern shows persistent hyperglycemia throughout the day Reports low sugars no . Family history of T2DM in father . Has eyes checked yearly, last eye exam. Needs to reschedule appt , denies retinopathy. Denies neuropathy, last foot exam , sees podiatry.Last saw 5 mos ago Denies nephropathy, on IAN/ARB Losartan . [facility] Has HLD, on statin. Denies CAD. saw optho 2 mos a go saw diabetes education. 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 Absence of acromegalic features. Neck exam reveals nl size thyroid about 15 gms. No thyroid nodules palpable. No carotid bruits present. Lungs CTA. Heart S1 S2, Reg R/R. No M/R/ G. Skin exam reveals absence of vitiligo or acanthosis nigricans. Abdominal exam reveals Soft NT/ND with NA BS. No organomegaly present. Neck Other: . Extrem Other: Visual exam of foot performed. No ulcerations or open lesions. No onchomycosis, no callouses.Pulses 2 + distally Sensation intact to monofilament exam. Vibratory sensation sensed is intact with 128 Hz tuning fork Results AMB Hemoglobin A1c AMB Hemoglobin A1c 6.4 % Last Edit by Kate Olguin MA on 09/29/22 15:38 Results Reviewed Results Reviewed: 09/29/22 15:30 Glucose, Whole Blood Routine Laboratory Last Values Glucose (Clinic) 89 mg/dL (60-115) 09/29/22 15:30 Assessment & Plan Assessment & Plan (1) Uncontrolled type 2 diabetes mellitus with hyperglycemia: Code(s): E11.65 - Type 2 diabetes mellitus with hyperglycemia Plan: This is a 56-year-old male with a history of type 2 diabetes being treated with metformin and Mounjaro withimproving excellent glycemic control and no known microvascular or macrovascular complications. Plan is to i continue with current treatment. At this point, patient returned to the care of his primary care provider and return back to endocrinology if HbA1c deteriora Plan Plan is to i continue with current treatment. At this point, patient returned to the care of his primary care provider and return back to endocrinology if HbA1c deteriorate Orders: Orders AMB Hemoglobin A1c Today Z13.9 - Encounter for screening, unspecified Coding Level of Care Code Est Pt Level 4 (08805) Diagnoses Uncontrolled type 2 diabetes mellitus with hyperglycemia E11.65
[2022-09-29 15:15] VITALS: BP 124/86; PULSE 80; BMI 36.0
[2022-09-29 15:34] LABS: Glucose, Whole Blood 89 mg/dL (60-115)
== END 2022-09-29 16:16 | disposition home or self-care (01) ==
PROVIDERS: PCP Internal Medicine; Visit Provider Internal Medicine Endocrinology, Diabetes & Metabolism
DX: Z13.9 Encounter for screening, unspecified (principal); E11.65 Type 2 diabetes mellitus with hyperglycemia
CPT/HCPCS: 99214

== ENCOUNTER → 2022-09-29 15:12 | Outpatient (BNVA) | payer OTHER, SELFPAY | PROVIDERS: Visit Provider Internal Medicine Endocrinology, Diabetes & Metabolism | DX: E11.65 Type 2 diabetes mellitus with hyperglycemia (principal); E78.5 Hyperlipidemia, unspecified; Z83.3 Family history of diabetes mellitus; Z79.891 Long term (current) use of opiate analgesic; Z79.899 Other long term (current) drug therapy | CPT/HCPCS: 82947; 83036 ==

== ENCOUNTER 2022-10-11 14:17 | Outpatient (AMB) | payer OTHER, SELFPAY ==
--- NOTE | 2022-10-11 14:28 | MHC.OFFVIS ---
Intake Vital Signs 10/11/22 14:32 Height 5 ft 10 in Weight 251 lb BMI 36.0 Intake Visit Reasons: ov- RT shoulder pain last inj 03/25/22 Intake Note: Paolo a 56 year old male who presents today for a follow up of right shoulder, last injection on 03/25/22. Patient reports last injection provided relief for about 6 months. He is requesting to repeat injection. He states pain is intermittent and painful with ROM. Allergies LISNOPRIL Allergy (Mild, Uncoded 09/29/22 15:27) Unknown CHANTIX Adverse Reaction (Unknown, Uncoded 08/18/22 11:35) zaidi HPI ov- RT shoulder pain last inj 03/25/22 HPI Details 56-year-old male who returns to the office today for a follow-up of right shoulder pain. He continues to have intermittent pain in his shoulder which comes with ROM. He had his last injection on 03/25/22 which provided him relief for 6 months. He is interested in repeating the injection. 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 Tenderness over the bicipital groove and along the deltoid region of the shoulder. FF to 175, ER to 90, IR to S1. 5/5 RTC strength, negative carpenter, cross body abduction. NVI. Office Procedures Joint Injection/Drain Joint Injection/Drain Primary Site: right shoulder Prep: site was prepped using aseptic technique, ethochloride spray was applied and injection warnings given Injected: 40 mg of, DepoMedrol, with 8 mL of, 1% plain lidocaine and in the subcromial space Approach Used: posterolateral Procedure: The patient tolerated the procedure well and there was some relief with the local anesthesia Coding 72958 - Glenohumeral/Tronchanteric Bursa/Intraarticular Procedure code (CPT) selection complete Results Reviewed Results Reviewed: 10/11/22 14:40 Lidocaine HCl 2 % MPF [Xylocaine 2 % MPF] 5 ml .ROUTE .STK-MED ONE methylPREDNISolone acetate [DEPO-MedroL] 40 mg .ROUTE .STK-MED ONE Assessment & Plan Assessment & Plan (1) Rotator cuff tendonitis: Code(s): M75.80 - Other shoulder lesions, unspecified shoulder (2) Acromioclavicular joint arthritis: Code(s): M19.019 - Primary osteoarthritis, unspecified shoulder Plan We discussed options today which include steroid injection. They did consent to move forward with the right shoulder injection, which was tolerated well. I recommended rest, ice and elevation and OTC anti-inflammatories PRN for discomfort. We also discussed their diabetes and the effect the steroid can have on their blood glucose levels; therefore, they will continue to monitor these very closely over the next 72 hours. If there are any concerns, they should report to the ED immediately. An MRI of her right shoulder was also ordered in the office today. Once the scan is complete, I will contact him with the results. Orders: Orders MR shoulder RT wo con 10/11/22 M19.019 - Primary osteoarthritis, unspecified shoulder, M75.80 - Other shoulder lesions, unspecified shoulder Patient Instructions: Scribed for Jese Jarquin PA-C, by Paul Hewitt medical staffing coordinator, on 10/11/2022 at 2:15 PM KENNY. Jese Ramirez PA-C, have personally reviewed and agree with the information entered by the scribe. Coding Level of Care Code Est Pt Level 3 (55099) Diagnoses Rotator cuff tendonitis M75.80 Acromioclavicular joint arthritis M19.019 CPT Codes Coding - Joint 7: 66495 - Glenohumeral/Tronchanteric Bursa/Intraarticular ([id number])
[2022-10-11 14:32] VITALS: BMI 36.0
== END 2022-10-11 15:02 | disposition home or self-care (01) ==
PROVIDERS: PCP Internal Medicine; Visit Provider Physician Assistant
DX: M75.81 Other shoulder lesions, right shoulder (principal); M19.011 Primary osteoarthritis, right shoulder
CPT/HCPCS: 20610; 99213

== ENCOUNTER → 2022-10-11 14:17 | Outpatient (BNVA) | payer OTHER, SELFPAY | PROVIDERS: PCP Internal Medicine; Visit Provider Physician Assistant | DX: M19.011 Primary osteoarthritis, right shoulder (principal); M75.81 Other shoulder lesions, right shoulder | CPT/HCPCS: 20610; J1020 ==

== ENCOUNTER 2022-10-16 22:01 | Inpatient (IN) | payer OTHER, SELFPAY ==
--- NOTE | ~2022-10-16 | XR_ITS ---
EXAMINATION: XR CHEST CLINICAL INFORMATION: Acute chest pain COMPARISON: 05/11/2020 TECHNIQUE: Frontal view of the chest was obtained. FINDINGS: Cardiac leads overlie the chest. The lungs are well expanded. There is no focal consolidation, edema, or effusion. No pneumothorax. The cardiomediastinal silhouette is within normal limits. No acute osseous abnormality. XR/XR chest 1V IMPRESSION: Clear lungs.
--- NOTE | ~2022-10-16 | CT_ITS ---
EXAMINATION: CT ABDOMEN AND PELVIS WITHOUT CONTRAST CLINICAL INFORMATION: Severe lower abdominal COMPARISON: 04/09/2022 TECHNIQUE: Multidetector volumetric imaging was performed from the superior aspect of the liver through the pubic symphysis. Sagittal and coronal reformatted images were obtained on the technologist's workstation. This CT examination was performed using dose optimization techniques as appropriate, variously including the following: *Automated exposure control *Adjustment of mA and/or kV according to patient size (this includes techniques or standardized protocols for targeted exams where dose is matched to indication/reason for exam; i.e. extremities or head) *Use of iterative reconstruction technique DLP: 882 mGy-cm FINDINGS: LUNG BASES: The visualized lung bases are unremarkable. LIVER, GALLBLADDER, AND BILIARY TREE: The liver is normal in size, shape, and attenuation. No focal hepatic lesion or biliary ductal dilatation is present. The gallbladder is unremarkable with no evidence of radiopaque gallstones, gallbladder wall thickening, or obvious pericholecystic inflammatory changes. PANCREAS: Unremarkable. SPLEEN: Unremarkable. ADRENAL GLANDS: Unremarkable. KIDNEYS AND URETERS: The kidneys are normal in size, shape, and attenuation. No hydronephrosis or hydroureter. 0.3 cm right upper pole renal calculus is 10 cm from the posterior axillary line. BLADDER: Unremarkable. GASTROINTESTINAL TRACT: The stomach is unremarkable. Normal caliber small bowel. No obstruction. Normal appendix. Colonic diverticulosis present. Mild inflammation of the fat adjacent to the sigmoid colon with mild wall thickening suggesting mild acute diverticulitis. No free air or fluid collection. ABDOMINAL WALL: No significant hernia is appreciated. LYMPH NODES: Normal. VASCULAR: Unremarkable. PELVIC VISCERA: The prostate and seminal vesicles are unremarkable. OSSEOUS STRUCTURES: No acute or suspicious osseous abnormality. Mild degenerative changes throughout the spine. CT/CT abdomen pelvis wo IV con IMPRESSION: Mild sigmoid diverticulitis. No free air or fluid collection. Nonobstructing right upper pole renal calculus. Fleischner guidelines were followed.
--- NOTE | ~2022-10-16 | XR_ITS ---
EXAMINATION: XR CHEST CLINICAL INFORMATION: Central line placement COMPARISON: 10/16/2022 TECHNIQUE: Frontal view of the chest was obtained. FINDINGS: Right internal jugular central venous catheter terminates near the cavoatrial junction. Cardiac leads overlie the chest. The lungs are well expanded. There is no focal consolidation, edema, or effusion. No pneumothorax. The cardiomediastinal silhouette is within normal limits. No acute osseous abnormality. XR/XR chest 1V IMPRESSION: Right internal jugular central venous catheter terminates near the cavoatrial junction. No pneumothorax.
--- NOTE | ~2022-10-16 | CT_ITS ---
EXAMINATION: CT HEAD WITHOUT CONTRAST CLINICAL INFORMATION: Acute confusion COMPARISON: None. TECHNIQUE: Contiguous axial imaging was performed from the skull base to vertex without intravenous contrast. This CT examination was performed using dose optimization techniques as appropriate, variously including the following: * Automated exposure control * Adjustment of mA and/or kV according to patient size (this includes techniques or standardized protocols for targeted exams where dose is matched to indication/reason for exam; i.e. extremities or head) Use of iterative reconstruction technique DLP: 591 mGy-cm. FINDINGS: There is no evidence of acute intracranial hemorrhage or territorial infarction. No abnormal mass effect or midline shift is seen. Rosenberg to white matter differentiation is well preserved. No extra-axial fluid collections are identified. No hydrocephalus. No significant volume loss. There is no abnormal attenuation within the brain parenchyma. The osseous structures and soft tissues are normal. The mastoid air cells and visualized portions of the paranasal sinuses are well aerated. CT/CT head/brain wo IV con IMPRESSION: No acute intracranial pathology.
[2022-10-16 22:03] VITALS: BP 78/47; PULSE 81; RESP 18; TEMP 36.3; O2SAT 98; BMI 34.3
--- NOTE | 2022-10-16 22:10 | PC.NURSE ---
Notified by Triage nurse of hypotension @ 0050. This pt was moved into room 6. Dr Barber and primary nurse Katie notified of hypotension.
--- NOTE | 2022-10-16 22:17 | ECG_ITS ---
Test Reason : SYNCOPE Blood Pressure : / mmHG Vent. Rate : 072 BPM Atrial Rate : 072 BPM P-R Int : 162 ms QRS Dur : 086 ms QT Int : 350 ms P-R-T Axes : 026 -10 007 degrees QTc Int : 383 ms Normal sinus rhythm Normal ECG No previous ECGs available Referred By: Generic ED Physician Electronically Signed By:ALONSO MCDONALD
[2022-10-16 22:32] VITALS: BP 73/40; PULSE 70; O2SAT 94
[2022-10-16 22:35] LABS: MANUAL DIFF FLAG NO
--- NOTE | 2022-10-16 22:35 | PC.NURSE ---
Pt A&Ox3, brought in from the [facility] via W/C, Pt transferred with stand by assist to stretcher. Pt BP 78/50, IV line placed, blood work collected and sent to lab, provider notified, sepsis alert protocol initiated. Pt report 10/ back/shoulder pain x months, reports falling at home after getting out of shower, denies LOC/head strike, reports weakness and numbing to lower extremities, denies dizziness/SOB/CP. Reports inability to void I have a large prostate , bladder scan results 94 mLs. Reports diarrhea, states I took laxatives at home . All over ABD tenderness to touch, + bowel sounds x 4 quadrants.
[2022-10-16 22:40] LABS: Basophils Absolute Auto 0.1 X10*3/uL (0.0-0.2); Basophils Percent Auto 0.3 % (0-2); Eosinophils Absolute Auto 0.3 X10*3/uL (0.0-0.4); Eosinophils Percent Auto 1.3 % (0-4); Hematocrit 40.9 % (42.0-52.0); Hemoglobin 13.5 g/dl (14.0-18.0); Imm Gran Abs Auto 0.13 X10*3/uL (0.00-0.03); Imm Gran Pct Auto 0.6 % (0.0-0.4); Lymphocytes Absolute Auto 1.6 X10*3/uL (1.2-4.9); Lymphocytes Percent Auto 7.5 % (20-40); Mean Corpuscular Hemoglobin 27.3 pg (27.0-33.0); Mean Corpuscular Volume 82.6 fL (80.0-98.0); Mean Platelet Volume 10.8 fL (9.4-12.4); Monocytes Absolute Auto 1.7 X10*3/uL (0.1-1.2); Monocytes Percent Auto 7.8 % (2-11); Neutrophils Absolute Auto 17.8 x10*3/uL (2.0-8.3); Neutrophils Percent Auto 82.5 % (45-73); Platelet Count 298 X10*3/uL (160-400); Red Blood Count 4.95 X10*6/uL (4.60-5.80); Red Cell Distribution Width 14.5 % (11.0-16.0); White Blood Count 21.6 X10*3/uL (4.8-10.8)
[2022-10-16 22:42] VITALS: O2SAT 96
--- NOTE | 2022-10-16 22:46 | ED_ITS ---
HPI - General Adult General Chief complaint: Syncope Stated complaint: fell 10/16 ,neck and back pain Time Seen by Provider: 10/16/22 22:24 Source: patient Limitations: no limitations History of Present Illness HPI narrative: 56-year-old male presents with generalized weakness, accidental fall, confusion. Symptoms started yesterday. Symptoms are severe. There is no clear relieving or exacerbating features. Patient reports history of chronic back pain. He has developed increasing lower extremity numbness especially when sitting on the toilet for an extended period time. Associated with generalized weakness. Today he was in the bathroom, he went to get up any fell to the floor. He denies eating his head or loss consciousness. Denied any chest pain, shortness breath or palpitations. Does complain of some generalized weakness. His reports some generalized confusion. He has had no fevers or chills. Yesterday developed some lower abdominal pain. The pain has been moderate to severe. Worse with driving. Pain does not radiate. Not associated with nausea, vomiting or diarrhea. Denies any blood in his stool. Patient has also been having difficulty urinating. Patient was recently started on a prostate medica tion. Related Data Home Medications Medication Instructions Recorded Confirmed blood sugar diagnostic (FreeStyle #10 ea 08/05/21 06/22/22 Lite Strips) metformin 500 mg tablet,extended 1,000 mg PO BID 08/05/21 10/17/22 release 24 hr diclofenac sodium 75 mg 75 mg PO BID 11/09/21 10/17/22 tablet,delayed release losartan 100 mg tablet 100 mg PO DAILY 11/09/21 10/17/22 oxycodone 10 mg tablet 10 mg PO TID PRN severe pain 11/09/21 10/17/22 aspirin 81 mg tablet,delayed 81 mg PO DAILY 06/22/22 10/17/22 release atorvastatin 20 mg tablet 20 mg PO BEDTIME 06/22/22 10/17/22 blood-glucose meter (FreeStyle #1 ea 06/22/22 06/22/22 Lite Meter kit) lancets 28 gauge (FreeStyle #100 ea 06/22/22 06/22/22 Lancets) pen needle, diabetic 32 gauge x #50 ea 06/22/22 06/22/22 (BD Latonya 2nd Gen Pen Needle) pregabalin 300 mg capsule (Lyrica) 300 mg PO DAILY 08/18/22 10/17/22 hydrocodone bitartrate 30 mg 30 mg PO BEDTIME 09/29/22 10/17/22 tablet,crush resist,extended rel. 24hr (Hysingla ER) sennosides 8.6 mg-docusate sodium 1 tab-cap PO BEDTIME 09/29/22 10/17/22 50 mg tablet (Stimulant Laxative Plus) varenicline 0.5 mg tablet 0.5 mg PO DIRECTED 09/29/22 10/17/22 Previous Rx's Medication Instructions Recorded flash glucose scanning reader #1 ea 10/19/21 (FreeStyle Norma 2 [place]) peg 3350-electrolytes 236 240 ml PO Q10M colonoscopy #4,000 08/18/22 gram-22.74 gram-6.74 gram-5.86 mL gram solution ([employer]) flash glucose sensor (FreeStyle #3 ea 09/06/22 Norma 2 Sensor kit) tirzepatide 7.5 mg/0.5 mL 7.5 mg (0.5 mL) subcut QWEEK #2 mL 09/29/22 subcutaneous pen injector ([employer]) Allergies Allergy/AdvReac Type Severity Reaction Status Date / Time LISNOPRIL Allergy Mild Rash Uncoded 10/17/22 00:12 Review of Systems Review of Systems: CONSTITUTIONAL: Denies weight loss, fever and chills. HEENT: Denies changes in vision and hearing. RESPIRATORY: Denies SOB and cough. CV: Denies palpitations no CP. GI: Denies + abdominal pain, - nausea, vomiting and diarrhea. : + dysuria negative urinary frequency. MSK: + myalgia and joint pain. SKIN: Denies rash and pruritus. NEUROLOGICAL: Denies headache and syncope. PSYCHIATRIC: Denies recent changes in mood. Denies anxiety and depression. 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 Physical Exam ED Vital Signs: Vital Signs - 24 hr 10/16/22 22:03 10/16/22 23:32 10/16/22 22:32 Temperature 97.4 F 98.0 F Pulse Rate 81 61 70 Respiratory Rate 18 14 Blood Pressure 78/47 L 78/50 L 73/40 L Pulse Oximetry 98 96 94 Oxygen Delivery Method Room Air Room Air Room Air 10/17/22 00:01 10/17/22 00:32 10/17/22 01:02 Temperature Pulse Rate 61 60 64 Respiratory Rate 14 12 14 Blood Pressure 86/50 L 82/48 L 75/42 L Pulse Oximetry 97 98 96 Oxygen Delivery Method Room Air Room Air Room Air 10/17/22 01:23 Temperature 98.0 F Pulse Rate 64 Respiratory Rate 14 Blood Pressure 107/66 Pulse Oximetry 100 Oxygen Delivery Method Room Air BMI result Body Mass Index 34.3 GEN: Well developed, no acute distress, alert, oriented HEENT: Normocephalic, atraumatic, normal external ears, nose appears normal, no oropharyngeal edema or exudates Eyes: Normal to appearance Neck: Supple, no lymphadenopathy Respiratory: Talks in complete sentences, no respiratory distress, clear to auscultation bilaterally Cardiovascular: Regular rate and rhythm, no murmurs rubs or gallops Abdomen: Soft, + LLQ, nondistended, + guarding, no rebound Back: No CVA tenderness Extremities: No clubbing cyanosis or edema Neurologic: No focal neurologic deficits, cranial nerves 2-12 intact, strength is 5/5 bilaterally Skin: No rash Course Reevaluation(s) Reevaluation #1: giving IVF bolus 30 cc/kg bolus, adjusted ideal body weight 87 kg Time: 22:47 Reevaluation #2: Sepsis alert Time: 22:52 Reevaluation #3: CT scan demonstrates diverticulitis. Will add Zosyn Additional Reevaluation(s): Patient remains hypotensive at this time. He has received 30 cc/kilogram bolus. I am adding on an additional L. I spoke with the ppa teacher. Patient will be admitted to the ICU. Medications Administered Generic Name Dose Route Start Last Admin Trade Name Freq PRN Reason Stop Dose Admin Sodium Chloride 1,000 mls @ 999 mls/hr 10/17/22 01:30 10/17/22 01:49 Ns IV 10/17/22 02:30 999 mls/hr .Q1H1M VANITA Administration Discontinued Medications Generic Name Dose Route Start Last Admin Trade Name Freq PRN Reason Stop Dose Admin Sodium Chloride 1,000 mls @ 999 mls/hr 10/16/22 22:45 10/17/22 01:23 Ns IV 10/17/22 01:15 Infused .Q1H1M VANITA Infusion Ceftriaxone Sodium 1 gm/ 50 mls @ 100 mls/hr 10/16/22 22:51 10/16/22 23:56 Sodium Chloride IV 10/16/22 23:20 Infused ONCE ONE Infusion Piperacillin Sod/Tazobactam 50 mls @ 100 mls/hr 10/16/22 23:35 10/17/22 00:27 Sod 3.375 gm/ Sodium Chloride IV 10/17/22 00:04 Infused ONCE ONE Infusion Procedures Central Line Placement Right IJ: Time Out Performed: Yes Patient Placed on Monitor/Pulse Ox: Yes MD Prep: mask, gown and gloves Central Line Prep: Chlorhexidine scrub Local Anesthetic: lidocaine 1% Amount of anesthesia used (mL): 2 Ultrasound Used for Placement: Yes Central Line Lumen Inserted: triple Post Procedure: sutured in place, good blood return, all ports aspirated, flushed, capped and sterile dressing applied Post Procedure X-Ray: tip of catheter in good position and no pneumothorax seen Patient Tolerated Procedure: well and no complications Complications: none Medical Decision Making Medical Decision Making MDM Narrative: 56-year-old male presents with a generalized weakness, fall, abdominal pain. Examination revealed a weak appearing male, slightly confused but no focal neurologic deficits. Left lower quadrant abdominal tenderness with guarding no rebound. He is noted to be hypotensive but not tachycardic. Differential diagnosis for hypotension: Anemia, GI bleed, sepsis Plan IV fluid bolus, check CBC, electrolytes, blood cultures, urinalysis Differential diagnosis abdominal pain: Diverticulitis, colitis, IBD, IBS, m esenteric ischemia, less likely AAA, aortic dissection Plan: CT scan abdomen and pelvis Differential Diagnosis Differential Diagnoses: The differential diagnosis associated with the presentation includes (See above) Admission/Observation Consideration of admission/observation: Escalation of care including admission/observation considered Lab Data MDM Lab Attestation statement: I reviewed the patient's lab results. 10/16/22 22:31 10/16/22 22:31 Labs: Lab Results 10/16/22 10/16/22 10/16/22 Range/Units 22:31 22:31 22:31 WBC 21.6 H (4.8-10.8) X10*3/uL RBC 4.95 (4.60-5.80) X10*6/uL Hgb 13.5 L (14.0-18.0) g/dl Hct 40.9 L (42.0-52.0) % MCV 82.6 (80.0-98.0) fL MCH 27.3 (27.0-33.0) pg MCHC 33.0 (31.0-36.0) g/dl RDW 14.5 (11.0-16.0) % Plt Count 298 (160-400) X10*3/uL MPV 10.8 (9.4-12.4) fL Immature Gran % (Auto) 0.6 H (0.0-0.4) % Neut % (Auto) 82.5 H (45-73) % Lymph % (Auto) 7.5 L (20-40) % [place] % (Auto) 7.8 (2-11) % Eos % (Auto) 1.3 (0-4) % Baso % (Auto) 0.3 (0-2) % Lymph # (Auto) 1.6 (1.2-4.9) X10*3/uL [place] # (Auto) 1.7 H (0.1-1.2) X10*3/uL Eos # (Auto) 0.3 (0.0-0.4) X10*3/uL Baso # (Auto) 0.1 (0.0-0.2) X10*3/uL Abs Immat Gran (auto) 0.13 H (0.00-0.03) X10*3/uL Absolute Neuts (auto) 17.8 H (2.0-8.3) x10*3/uL Absolute Nucleated RBC 0.000 (0.0-0.012) X10*3/uL Nucleated RBC % (auto) 0.0 (0.0-0.2) /100WBC PT (11.1-13.3) SEC INR (0.9-1.1) APTT (26.0-36.4) SEC Sodium 136 (135-145) mmol/L Potassium 4.5 (3.3-5.1) mmol/L Chloride 107 (96-108) mmol/L Carbon Dioxide 19 L (22-29) mmol/L Anion Gap 15 (12-20) BUN 35 H (9-16) mg/dL Creatinine 3.51 H (0.5-1.4) mg/dL Estim Creat Clear Calc 28.6 Estimated GFR 18 Random Glucose 149 H (60-115) mg/dL Lactic Acid (0.5-2.0) mmol/L Calcium 10.7 H D (8.4-10.2) mg/dL Total Bilirubin 0.4 (0.0-1.0) mg/dL Direct Bilirubin 0.2 (0.0-0.5) mg/dL AST 31 (5-37) U/L ALT 40 (0-40) U/L Alkaline Phosphatase 71 (39-117) U/L Troponin I High Sens 6.9 (<3.5-35.0) ng/L Total Protein 8.0 (6.5-8.0) g/dL Albumin 4.0 (3.5-5.0) g/dL Lipase 7 L (8-78) U/L Blood Type Antibody Screen 10/16/22 10/16/22 10/16/22 Range/Units 22:59 22:59 23:27 WBC (4.8-10.8) X10*3/uL RBC (4.60-5.80) X10*6/uL Hgb (14.0-18.0) g/dl Hct (42.0-52.0) % MCV (80.0-98.0) fL MCH (27.0-33.0) pg MCHC (31.0-36.0) g/dl RDW (11.0-16.0) % Plt Count (160-400) X10*3/uL MPV (9.4-12.4) fL Immature Gran % (Auto) (0.0-0.4) % Neut % (Auto) (45-73) % Lymph % (Auto) (20-40) % [place] % (Auto) (2-11) % Eos % (Auto) (0-4) % Baso % (Auto) (0-2) % Lymph # (Auto) (1.2-4.9) X10*3/uL [place] # (Auto) (0.1-1.2) X10*3/uL Eos # (Auto) (0.0-0.4) X10*3/uL Baso # (Auto) (0.0-0.2) X10*3/uL Abs Immat Gran (auto) (0.00-0.03) X10*3/uL Absolute Neuts (auto) (2.0-8.3) x10*3/uL Absolute Nucleated RBC (0.0-0.012) X10*3/uL Nucleated RBC % (auto) (0.0-0.2) /100WBC PT 13.8 H (11.1-13.3) SEC INR 1.1 (0.9-1.1) APTT 29.9 (26.0-36.4) SEC Sodium (135-145) mmol/L Potassium (3.3-5.1) mmol/L Chloride (96-108) mmol/L Carbon Dioxide (22-29) mmol/L Anion Gap (12-20) BUN (9-16) mg/dL Creatinine (0.5-1.4) mg/dL Estim Creat Clear Calc Estimated GFR Random Glucose (60-115) mg/dL Lactic Acid 0.8 (0.5-2.0) mmol/L Calcium (8.4-10.2) mg/dL Total Bilirubin (0.0-1.0) mg/dL Direct Bilirubin (0.0-0.5) mg/dL AST (5-37) U/L ALT (0-40) U/L Alkaline Phosphatase (39-117) U/L Troponin I High Sens (<3.5-35.0) ng/L Total Protein (6.5-8.0) g/dL Albumin (3.5-5.0) g/dL Lipase (8-78) U/L Blood Type A Positive Antibody Screen NEGATIVE Independent Interpretation I performed an independent interpretation of an: EKG (Normal sinus rhythm heart rate 72, no acute ST elevations depressions, nonspecific ST T wave changes), Plain X-Ray (Chest: No acute cardiopulmonary disease) and CT Scan (No acute find ings) Interpretation: Repeat chest x-ray for placement of central line reveals a right IJ with the tip at the caval atrial junction no pneumothorax. Radiology Impression Discussion of test interpretation with radiology: I have reviewed the radiologist's reading. Radiologist Impression: XR/XR chest 1V IMPRESSION: Clear lungs. ? Dictated By: Garo Pappas MD Signed By: <Electronically signed by Garo Pappas MD in [facility]> 10/16/[address]/CT abdomen pelvis wo IV con IMPRESSION: Mild sigmoid diverticulitis. No free air or fluid collection. ? Nonobstructing right upper pole renal calculus. ? Fleischner guidelines were followed. Dictated By: Garo Pappas MD Signed By: <Electronically signed by Garo Pappas MD in [facility]> 10/16/22 2330 Independent Historian Clinical information obtained from an independent historian. History obtained from or confirmed by: Spouse Prescription Management I considered prescription management with: Pain Medication and Antibiotic Chronic Conditions Patient?s care impacted by: Hypertension Critical Care Time Critical Care Time Critical Care Time: Yes Total Critical Care Time: 80 Attestation: Due to a high probability of clinically significant, life threatening deterio ration, the patient required my highest level of preparedness to intervene emergently and I personally spent this critical care time directly and personally managing the patient. This critical care time included obtaining a history; examining the patient; pulse oximetry; ordering and review of studies; arranging urgent treatment with development of a management plan; evaluation of patient's response to treatment; frequent reassessment; and, discussions with other providers. This critical care time was performed to assess and manage the high probability of imminent, life-threatening deterioration that could result in multi-organ failure. It was exclusive of separately billable procedures and treating other patients and teaching time. Discharge Plan Discharge Clinical Impression: Acute hypotension, Acute confusion, Generalized weakness, Leukocytosis, SMOOTH (acute kidney injury), Abdominal pain, acute, Chronic back pain, History of paresthesia, Diverticulitis Patient Disposition: Admitted As Inpatient
[2022-10-16 22:48] LABS: Anion Gap 15 (12-20); Blood Urea Nitrogen 35 mg/dL (9-16); Calcium 10.7 mg/dL (8.4-10.2); Carbon Dioxide 19 mmol/L (22-29); Chloride 107 mmol/L (96-108); Creatinine Clr Calc Pharmacy 28.6; Estimated Glomerular Filt Rate 18; Glucose Random 149 mg/dL (60-115); Potassium 4.5 mmol/L (3.3-5.1); Sodium 136 mmol/L (135-145)
[2022-10-16 22:56] LABS: Troponin-I High Sensitivity 6.9 ng/L (<3.5-35.0)
[2022-10-16 23:09] LABS: Alanine Aminotransferase 40 U/L (0-40); Alkaline Phosphatase 71 U/L (39-117); Aspartate Amino Transferase 31 U/L (5-37); Bilirubin Direct 0.2 mg/dL (0.0-0.5); Bilirubin Total 0.4 mg/dL (0.0-1.0)
[2022-10-16 23:14] LABS: INTERNATIONAL NORM RATIO 1.1 (0.9-1.1); Lactic Acid 0.8 mmol/L (0.5-2.0); Prothrombin Time 13.8 SEC (11.1-13.3)
--- NOTE | 2022-10-16 23:14 | PC.NURSE ---
Pt in CT scan at this time, awaiting to initiate fluids Per MAR.
[2022-10-16 23:17] LABS: Partial Thromboplastin Time 29.9 SEC (26.0-36.4)
[2022-10-16] MEDS: 0.9 % Sodium Chloride 1,000 ML 999 ML IV ×2 (23:18→23:22)
[2022-10-16] MEDS: cefTRIAXone sodium 1 GM in 0.9 % Sodium Chloride 50 ML IV (23:18)
[2022-10-16 23:19] LABS: Lipase 7 U/L (8-78)
[2022-10-16 23:32] VITALS: BP 78/50; PULSE 61; RESP 14; TEMP 36.7; O2SAT 96
[2022-10-16] MEDS: Piperacillin Sodium/Tazobactam 3.375 GM in 0.9 % Sodium Chloride 50 ML IV (23:56)
[2022-10-17] VITALS (25 sets, daily range): BP systolic 75–161; BP diastolic 42–96; PULSE 57–78; RESP 10–22; TEMP 36.3–37.1; O2SAT 95–100; BMI 36.2
--- NOTE | 2022-10-17 01:15 | PC.NURSE ---
No improvement in BP, provider Shobha notified, new order for additional NS bolus. Plan for central line placement.
--- NOTE | 2022-10-17 01:23 | PC.NURSE ---
Total of 2500 mLs sepsis fluids given.
--- NOTE | 2022-10-17 01:35 | PM.CCHP ---
History of Present Illness Date of Service: 10/17/22 Attending physician on admission: Inder Qureshi Chief Complaint: SEPSIS / SMOOTH/ DIVERTICULITIS HPI: ?56-year-old male with a history of hypertension, BPH, hyperlipidemia,Diverticulitis, neuropathy, constipation for which he took laxatives, type 2 diabetes, chronic back pain among others presented to the emergency room with complaints of neck and back pain as he had fallen on 07/16/2022 ; patient had reported increased his lower extremity numbness especially when sitting on the toilet for long time along with more generalized weakness, he had been in the bathroom and fell on the floor had denied loss of consciousness or head trauma. he does admit to me having lower abdominal pain from right to left for the past 24 hours or so, he thought he was constipated and he took laxatives, has been feeling weaker than usual and very thirsty. He does not use insulin although he is a diabetic. Denies any diarrhea, nausea, vomiting, melena, hematochezia. ? The ED workup was significant for white count 21.6, H&H of 13.5, hematocrit 40.9, platelets 298.? Sodi 136, potassium 4.5, chloride 107, carbon dioxide 19, anion gap 15, BUN 35, creatinine 3.51, LFTs within normal limits.? CT of the abdomen and pelvis shows mild sigmoid diverticulitis without free air fluid collection, no renal calculi.? Other images including chest x-ray and head CT showed no acute pathology.? Patient had been given 2.5 L of fluid and although his blood pressure had been stable throughout the afternoon, he had become hypotensive with the lowest blood pressure of 73/40.? He was given Rocephin initially and later switched to Zosyn.? Given the ongoing hypotension, a central line was placed in the ER and the patient was started on vasopressors, patient was transferred to the ICU for further care. ? ROS:? Unable to obtain, somewhat confused ? Past Medical History:? As above Chronic back pain Colonic polyps Rotator cuff tendinitis AC joint arthritis ? Past Surgical History:? Colonoscopy ? Family history:? Family history of diabetes and hypertension ? Social History:? Lives at home with his , his an ex-smoker who quit in August of this year, no history of drug abuse or alcohol abuse. ? CODE STATUS: FULL CODE ? Allergies: ?Lisinopril (rash) ? Home Medications: See Med Rec ? SEPSIS EXAM DONE AT 3 AM: VS: ?108/57, 80, 14, 100% on room air, 98.0 F. General:? Pleasantly confused, follows basic commands no Skin:? Intact, no lesions, edema, erythema, clubbing or cyanosis.? No ulcers. HEENT:? Head is normocephalic, atraumatic, pupils equal round reactive to light accommodation bilaterally.? Extraocular movements appear intact.? Buccal mucosa is moist, Neck is supple without lymphadenopathy. R CVL with C?D?I surroundings Cardiac:? Clear S1-S2, no murmurs rubs or gallops. Pulmonary:? Clear to auscultation, no wheezes, rales or rhonchi. Abdomen:? Protuberant, positive bowel sounds in all 4 quadrants.? Soft, but tender at the left lower quadrant, some guarding but no rebound noted. Musculoskeletal:? Moving all 4 extremities upon request a major joints, there is no crepitus or tenderness.? The strength is 5/5 bilaterally and throughout all 4 extremities.? There is no leg edema , no calf tenderness , no leg asymmetry. Neurologic:? As above, cranial nerves 2-12 are grossly intact.? No focal deficits noted. Vascular:? 2+ pulses upper and lower extremities distally. ?Less than 2nd capillary refill of the finger and toes bilaterally upper and lower extremities ? SIGNIFICANT LABORATORY DATA:? As above ? REVIEW OF IMAGES: ? CT ABD AND PELVIS W?O Con IMPRESSION: Mild sigmoid diverticulitis. No free air or fluid collection. Nonobstructing right upper pole renal calculus. ? CXR IMPRESSION: Clear lungs. ? HEAD CT FINDINGS: There is no evidence of acute intracranial hemorrhage or territorial infarction. No abnormal mass effect or midline shift is seen. Rosenberg to white matter differentiation is well preserved. No extra-axial fluid collections are identified. No hydrocephalus. No significant volume loss. There is no abnormal attenuation within the brain parenchyma. The osseous structures and soft tissues are normal. The mastoid air cells and visualized portions of the paranasal sinuses are well aerated. ? EKG REVIEW: ?To my view this shows sinus rhythm ventricular rate 72 beats per minute.? There is no ST elevations, no ST depressions.? QTC 350 EMS.? No comparison. ? ASSESSMENT : 1. Acute Sepsis 2. Acute diverticulitis 3. Acute kidney injury due to significant vol depletion and (ARB, NSAIDS) 4. Clinical dehydration 5. Normocytic anemia 6. Metabolic encephalopathy 7. Chronic and stable type 2 diabetes 8. Chronic Back Pain and Opioid Dependance /Use ? PLAN OF CARE: Admit to ICU, monitor vital signs, I's and O's, complete 3 L of IV fluids, if his blood pressure continues to be low, will start vasopressors, however I will continue with maintenance fluids as he appears to be significantly dehydrated and I believe the renal function is mostly due to that as well as nephrotoxins such as losartan and Diclofenac.? Will repeat laboratories in the morning with lactic acid.? Will continue with renally adjusted antibiotics to cover Gram-negative organisms and anaerobes.?UA an Utox. Insulin sliding scale, will keep him NPO for now.? Tylenol p.r.n..? Antiemetics p.r.n.. ? GI PROPHYLAXIS: ?IV ppi DVT PROPHYLAXIS: ?Heparin subQ q.8 hours ? Critical care time used for critical evaluation of this patient, diagnosis, treatment and coordination of care, review her records and documentation TOTAL CRITICAL CARE TIME 90? MIN . discussion and coordination with consultants, completely separate from any procedures performed. Patient's care was discussed in detail with Dr. Qureshi.? He is aware of all the above as well as the plan of care for this patient. [facility] Past Medical History Medical History Diabetes Hypertension Uncontrolled type 2 diabetes mellitus with hyperglycemia Family History Family History Father Diabetes Mother Osteoporosis Surgical History Surgical History Hx of colonoscopy No pertinent past surgical history Social History Social History Household Members: Spouse Household Members Other:: Housing: House Do you presently have visiting nurse or other home services: No Alcohol intake: never Patient Tobacco Use Status: Former Tobacco user Quit Date: 2 WEEKS AGO, ON [employer] Tobacco use type: Cigarette Smoked in Last 30 Days: Yes Patient Interested in Nicotine Replacement: No Patient Given Instructions on How to Stop Smoking: No Second Hand Smoke Exposure: No Use of substances other than those prescribed or required for medical reasons: No Substance Use Type: Opiates Substance Use Frequency: Chronic Longstanding Currently Displaying Signs/Symptoms of Drug Intoxication Withdrawal: No Any prior treatment program specific to substance use: No Have you been hit, kicked, punched, or otherwise hurt by someone within the past year? If so, by whom?: No Do you feel safe in your current relationship?: No Is there a partner from a previous relationship who is making you feel unsafe now?: No Are you made to feel afraid or neglected: No Spiritual Healthcare Practices: NONE Adventist Healthcare Practices: NONE Cultural Healthcare Practices: NONE Advance Directives: No Advance Directives Information Provided: No Advance Directives on File: No Do you have thoughts of harming others: None Do you have a plan to hurt others: No Plan Recently lost weight without trying: Yes How much weight loss: 34pounds or more Eating poorly because of decreased appetite: Yes Nutrition screen score: 7 Nutrition Risks: No Nutritional Risk Poor oral hygiene: No service: No Current occupational status: employed 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, 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 Meds Allergies Allergy/AdvReac Type Severity Reaction Status Date / Time LISNOPRIL Allergy Mild Rash Uncoded 10/17/22 00:12 Active Medications: Current Medications Acetaminophen (Acetaminophen 325 Mg Tablet) 650 mg PO Q6H PRN PRN Reason: Fever Heparin Sodium (Porcine) (Heparin Sodium,Porcine 5,000 Unit/Ml Vial) 5,000 unit SUBCUT Q8H [facility] Sodium Chloride (Ns) 1,000 mls @ 999 mls/hr IV .Q1H1M [facility] Stop: 10/17/22 02:30 Pantoprazole Sodium 40 mg/ (Sodium Chloride) 110 mls @ 400 mls/hr IV DAILY@0630 [facility] Lactated Ringer's (Lr) 3,252.27 mls @ 3,252.27 mls/hr 30 ml/kg infuse over 1 hr (3252.27 ml) IV .Q1H ONE Stop: 10/17/22 02:31 Home Medications Medication Instructions Recorded Confirmed Last Taken Type blood sugar diagnostic (FreeStyle #10 ea 08/05/21 06/22/22 Unknown History Lite Strips) metformin 500 mg tablet,extended 1,000 mg PO BID 08/05/21 10/17/22 Unknown History release 24 hr diclofenac sodium 75 mg 75 mg PO BID 11/09/21 10/17/22 Unknown History tablet,delayed release losartan 100 mg tablet 100 mg PO DAILY 11/09/21 10/17/22 Unknown History oxycodone 10 mg tablet 10 mg PO TID PRN severe pain 11/09/21 10/17/22 Unknown History aspirin 81 mg tablet,delayed 81 mg PO DAILY 06/22/22 10/17/22 Unknown History release atorvastatin 20 mg tablet 20 mg PO BEDTIME 06/22/22 10/17/22 Unknown History blood-glucose meter (FreeStyle #1 ea 06/22/22 06/22/22 Unknown History Lite Meter kit) lancets 28 gauge (FreeStyle #100 ea 06/22/22 06/22/22 Unknown History Lancets) pen needle, diabetic 32 gauge x #50 ea 06/22/22 06/22/22 Unknown History (BD Latonya 2nd Gen Pen Needle) pregabalin 300 mg capsule (Lyrica) 300 mg PO DAILY 08/18/22 10/17/22 Unknown History hydrocodone bitartrate 30 mg 30 mg PO BEDTIME 09/29/22 10/17/22 Unknown History tablet,crush resist,extended rel. 24hr (Hysingla ER) sennosides 8.6 mg-docusate sodium 1 tab-cap PO BEDTIME 09/29/22 10/17/22 Unknown History 50 mg tablet (Stimulant Laxative Plus) varenicline 0.5 mg tablet 0.5 mg PO DIRECTED 09/29/22 10/17/22 Unknown History Physical Exam Vital Signs: Vital Signs: Last Vital Signs Temp 98.0 F 10/16/22 23:32 Pulse 64 10/17/22 01:02 Resp 14 10/17/22 01:02 BP 75/42 L 10/17/22 01:02 Pulse Ox 96 10/17/22 01:02 O2 Del Method Room Air 10/17/22 01:02 BMI result Body Mass Index 34.3 Results Labs 10/16/22 22:31 10/16/22 22:31 Labs: Laboratory Results - last 24 hr 10/16/22 10/16/22 10/16/22 22:31 22:31 22:59 MCV 82.6 MCH 27.3 MCHC 33.0 RDW 14.5 Plt Count 298 MPV 10.8 Immature Gran % (Auto) 0.6 H Neut % (Auto) 82.5 H Lymph % (Auto) 7.5 L [place] % (Auto) 7.8 Eos % (Auto) 1.3 Baso % (Auto) 0.3 Lymph # (Auto) 1.6 [place] # (Auto) 1.7 H Eos # (Auto) 0.3 Baso # (Auto) 0.1 Abs Immat Gran (auto) 0.13 H Absolute Neuts (auto) 17.8 H Absolute Nucleated RBC 0.000 Nucleated RBC % (auto) 0.0 PT INR APTT Anion Gap 15 Estim Creat Clear Calc 28.6 Estimated GFR 18 Random Glucose 149 H Lactic Acid 0.8 Calcium 10.7 H D Total Bilirubin 0.4 Direct Bilirubin 0.2 AST 31 ALT 40 Alkaline Phosphatase 71 Total Protein 8.0 Albumin 4.0 Lipase 7 L Blood Type Antibody Screen 10/16/22 10/16/22 22:59 23:27 MCV MCH MCHC RDW Plt Count MPV Immature Gran % (Auto) Neut % (Auto) Lymph % (Auto) [place] % (Auto) Eos % (Auto) Baso % (Auto) Lymph # (Auto) [place] # (Auto) Eos # (Auto) Baso # (Auto) Abs Immat Gran (auto) Absolute Neuts (auto) Absolute Nucleated RBC Nucleated RBC % (auto) PT 13.8 H INR 1.1 APTT 29.9 Anion Gap Estim Creat Clear Calc Estimated GFR Random Glucose Lactic Acid Calcium Total Bilirubin Direct Bilirubin AST ALT Alkaline Phosphatase Total Protein Albumin Lipase Blood Type A Positive Antibody Screen NEGATIVE Imaging Radiologist's Impressions: Impressions Chest X-Ray 10/16/22 23:05 IMPRESSION: Clear lungs. Abdomen/Pelvis CT 10/16/22 23:13 IMPRESSION: Mild sigmoid diverticulitis. No free air or fluid collection. Nonobstructing right upper pole renal calculus. Fleischner guidelines were followed. Head CT 10/16/22 23:19 IMPRESSION: No acute intracranial pathology. Assessment and Plan Time Spent With Patient Time: Total time managing care of this patient today ____ minutes.
[2022-10-17] MEDS: 0.9 % Sodium Chloride 1,000 ML 999 ML IV (01:49)
[2022-10-17] MEDS: metroNIDAZOLE/NS 500 MG/100 ML PIGGYBACK 100 MG IV ×3 (02:44→18:50)
--- NOTE | 2022-10-17 02:50 | PC.NURSE ---
RN to RN report given to Lenora, Pt will be transported to room 254, Pt aware of plan.
[2022-10-17] MEDS: Lactated Ringers 1,000 ML 150 ML IVCONT (03:20)
[2022-10-17 04:58] LABS: Basophils Absolute Auto 0.1 X10*3/uL (0.0-0.2); Basophils Percent Auto 0.4 % (0-2); Eosinophils Absolute Auto 0.4 X10*3/uL (0.0-0.4); Eosinophils Percent Auto 2.6 % (0-4); Hematocrit 32.6 % (42.0-52.0); Hemoglobin 10.9 g/dl (14.0-18.0); Imm Gran Abs Auto 0.08 X10*3/uL (0.00-0.03); Imm Gran Pct Auto 0.5 % (0.0-0.4); Lymphocytes Absolute Auto 1.8 X10*3/uL (1.2-4.9); Lymphocytes Percent Auto 11.2 % (20-40); MANUAL DIFF FLAG NO; Mean Corpuscular HGB Conc 33.4 g/dl (31.0-36.0); Mean Corpuscular Hemoglobin 28.2 pg (27.0-33.0); Mean Corpuscular Volume 84.5 fL (80.0-98.0); Mean Platelet Volume 10.9 fL (9.4-12.4); Monocytes Absolute Auto 1.3 X10*3/uL (0.1-1.2); Monocytes Percent Auto 8.2 % (2-11); Neutrophils Absolute Auto 12.1 x10*3/uL (2.0-8.3); Neutrophils Percent Auto 77.1 % (45-73); Platelet Count 239 X10*3/uL (160-400); Red Blood Count 3.86 X10*6/uL (4.60-5.80); Red Cell Distribution Width 14.5 % (11.0-16.0); White Blood Count 15.6 X10*3/uL (4.8-10.8)
[2022-10-17 05:07] LABS: Lactic Acid 0.5 mmol/L (0.5-2.0)
[2022-10-17 05:16] LABS: Alanine Aminotransferase 40 U/L (0-40); Alkaline Phosphatase 62 U/L (39-117); Anion Gap 10 (12-20); Aspartate Amino Transferase 36 U/L (5-37); Bilirubin Total 0.2 mg/dL (0.0-1.0); Blood Urea Nitrogen 29 mg/dL (9-16); Calcium 9.1 mg/dL (8.4-10.2); Carbon Dioxide 21 mmol/L (22-29); Chloride 113 mmol/L (96-108); Creatinine Clr Calc Pharmacy 47.8; Estimated Glomerular Filt Rate 32; Glucose Random 147 mg/dL (60-115); Potassium 4.6 mmol/L (3.3-5.1); Sodium 139 mmol/L (135-145); Total Protein 6.1 g/dL (6.5-8.0)
[2022-10-17] MEDS: Pantoprazole Sodium 40 MG in 0.9 % Sodium Chloride 100 ML 400 MG IV (05:36)
[2022-10-17] MEDS: Heparin Sodium,Porcine 5,000 UNIT/ML VIAL 5000 UNIT SUBCUT ×3 (05:45→21:48)
--- NOTE | 2022-10-17 06:21 | PC.NURSE ---
PT TO ICU AT 0300. PT IS A&OX3. BP ON ARRIVAL 102/64. MONITOR SHOWS SR, HR 60'S-70'S, NO ECTOPY. OCCASSIONAL RUNS OF BRADYCARDIA WITH HR OF 40'S NOTED. AFTER INITIAL ADMISSION ASSESSMENT, PT FELL ASLEEP. WHEN HE WOKE UP HE WAS SLIGHTLY CONFUSED. SBP WAS IN THE 90'S. PT REORIENTED QUICKLY. PT RECEIVED 3.5 LITERS OF IV FLUID IN THE ER AND THEN LR 150/HR STARTED IN THE ICU. WAS NOT ABLE TO VOID AND BLADDER WAS SCANNED FOR 597ML. PT VOIDED SHORTLY AFTER FOR 500ML.
[2022-10-17] MEDS: Dextrose 5 % and 0.2 % NaCl 1,000 ML 100 ML IVCONT (07:14)
[2022-10-17] MEDS: Albumin Human 25 % 100 ML 133.33 ML IV ×2 (07:18→08:25)
[2022-10-17 07:20] LABS: Magnesium 2.2 mg/dL (1.6-2.6); Phosphorus 2.7 mg/dL (2.7-4.5)
[2022-10-17 07:41] LABS: TSH reflex Free T4 0.23 uIU/mL (0.32-4.0)
[2022-10-17] MEDS: Dextrose 5 % and Lactated Ring 1,000 ML 100 ML IVCONT ×2 (08:24→18:43)
[2022-10-17 08:59] LABS: Appearance Urine Clear; Color Urine Yellow; Glucose Urine UA Negative (Negative); Leukocyte Esterase Urine Negative (Negative); Nitrite Urine Negative (Negative); PH 5.5 (5.0-9.0); Specific Gravity - Urine 1.015 (1.005-1.025); UMIC TRIGGER UACC YES; Urine Blood Negative (Negative); Urine Ketones Negative (Negative); Urine Protein 30 (1+) mg/dL (Neg-Trace)
[2022-10-17 09:15] LABS: Bacteria Urine None Seen (None Seen); RBC Urine 0-2 /HPF (0-2); Squamous Epithelial Cell Urine 0-2 /HPF (0-2); WBC Urine 0-5 /HPF (0-5)
[2022-10-17] MEDS: levoFLOXacin/D5W 250 MG/50 ML PIGGYBACK 50 MG IV (09:27)
[2022-10-17 10:41] LABS: Free T4 (Free Thyroxine) 0.98 ng/dL (0.71-1.85)
--- NOTE | 2022-10-17 11:03 | MHC.CM.PN ---
EMR REVIEWED, PT ADMITTED W/SEPTIC SHOCK/DIVERTICULITIS/SMOOTH, CM MET W/PT WHO IS A&O, PT REPORTS HE IS FULLY INDEP/WORKS/DRIVES AND DENIES USE OF DME/HOME SERVICES, PT REPORTS HE WOULD LIKE TO COMPLETE A HCP AND NAMES HIS GEM SCHWARTZ [phone] HIS [facility] AND DTR LY RISHABH [phone] HIS ALTERNATE, DOCUMENT COMPLETED AND PT WILL TAKE TIME TO REVIEW AND CM WILL RETURN TO WITNESS SIGNATURE. PCP VERIFIED RENETTA GERONIMO VACC X2. ANTIC D/C HOME NO SERVICES W/FAMILY FOR TRANSPORT.
[2022-10-17 11:38] LABS: Glucose, Whole Blood 161 mg/dL (60-115)
[2022-10-17] MEDS: Acetaminophen 325 MG TABLET 650 MG PO ×2 (11:58→21:46)
[2022-10-17] MEDS: polyethylene glycoL 3350 17 GM POWD.PACK PO (11:58)
[2022-10-17 13:22] LABS: Amphetamine Screen Urine Not Detected (Not Detect); Barbiturates, Urine Not Detected (Not Detect); Benzodiazepines Screen Urine Not Detected (Not Detect); Cannabinoid Screen Urine Not Detected (Not Detect); Cocaine Screen Urine Not Detected (Not Detect); Opiate Screen Urine POSITIVE (Not Detect); Phencyclidine Screen Urine Not Detected (Not Detect)
--- NOTE | 2022-10-17 15:27 | PM.EVENT ---
Event Note Date of Service: 10/17/22 Event Note: 56-year-old gentleman with past medical history of diabetes mellitus type 2 on insulin, hypertension, metabolic syndrome, obesity, chronic constipation, urinary retention, history of greater than 1 pack per day smoking,, chronic back pain , history of diverticulosis and diverticulitis in the past status post colonoscopy in April 2019 noted to have 2 tubular adenomas, presented to ED due to lower extremity numbness mostly when sitting on the toilet for long period of time, generalized weakness, on the day of admission patient was in the bathroom he tried to get up but fell to the floor denied loss of consciousness, no head injury no chest pain or shortness of breath but complained of generalized weakness he denied fever chills he also complained of lower abdominal pain since the day prior to admission with no radiation no associated nausea, vomiting or diarrhea denied any blood in stool patient in the ED noted to have hypotension treated with IV fluids since BP remained low was admitted to ICU for pressors and close monitoring. Acute diverticulitis, history of chronic leukocytosis, no sepsis, hypotension due to antihypertensive decreased by mouth intake continue IV Levaquin,iv Flagyl, IV fluids, WBC trending down follow blood cultures. acute kidney injury noted to have creatinine of 3.51 with a baseline creatinine of 1 on July 2022, likely poor renal perfusion with hypotension creatinine trending down continue IV fluids avoid nephrotoxins, hold diclofenac acid and losartan 100mg history of urinary retention will place on Flomax continue Mcknight catheter outpatient follow-up with Urology diabetes mellitus blood sugar less than 200, will change diet to diabetic, continue insulin sliding scale, hold metformin and Mounjaro subq, follow blood sugar closely chronic back pain will resume Lyrica and oxycodone since blood pressure improved. hyperlipidemia continue statin low TSH 0.23 with no prior history of thyroid issues, normal TSH January of 2022, will check free T4 and total T3 tobacco use disorder counseling done, resume home medication varenicline. DVT prophylaxis on heparin. code status full code. ? Time Spent With Patient Time: Total time managing care of this patient today ____ minutes.
[2022-10-17 16:23] LABS: Glucose, Whole Blood 120 mg/dL (60-115)
[2022-10-17] MEDS: oxyCODONE HCl Immed Release 5 MG TABLET 10 MG PO ×2 (17:40→21:45)
[2022-10-17 19:56] LABS: Glucose, Whole Blood 153 mg/dL (60-115)
[2022-10-17] MEDS: Atorvastatin Calcium 20 MG TABLET PO (21:46)
[2022-10-18] MEDS: metroNIDAZOLE/NS 500 MG/100 ML PIGGYBACK 100 MG IV ×2 (03:19→10:40)
[2022-10-18 03:29] VITALS: BP 157/95; PULSE 65; RESP 18; TEMP 37.4; O2SAT 98
[2022-10-18 04:49] VITALS: BMI 36.2
[2022-10-18] MEDS: Heparin Sodium,Porcine 5,000 UNIT/ML VIAL 5000 UNIT SUBCUT (05:06)
[2022-10-18] MEDS: Dextrose 5 % and Lactated Ring 1,000 ML 100 ML IVCONT (05:06)
[2022-10-18 07:20] LABS: Glucose, Whole Blood 134 mg/dL (60-115)
[2022-10-18 07:27] LABS: Hemoglobin 11.6 g/dl (14.0-18.0); Mean Corpuscular HGB Conc 33.1 g/dl (31.0-36.0); Mean Corpuscular Hemoglobin 26.9 pg (27.0-33.0); Mean Corpuscular Volume 81.2 fL (80.0-98.0); Mean Platelet Volume 11.4 fL (9.4-12.4); Platelet Count 299 X10*3/uL (160-400); Red Blood Count 4.31 X10*6/uL (4.60-5.80); Red Cell Distribution Width 14.4 % (11.0-16.0); White Blood Count 14.2 X10*3/uL (4.8-10.8)
[2022-10-18 07:41] LABS: Anion Gap 12 (12-20); Blood Urea Nitrogen 11 mg/dL (9-16); Calcium 10.4 mg/dL (8.4-10.2); Carbon Dioxide 23 mmol/L (22-29); Chloride 110 mmol/L (96-108); Creatinine Clr Calc Pharmacy 100.3; Estimated Glomerular Filt Rate > 60; Glucose Random 126 mg/dL (60-115); Potassium 3.9 mmol/L (3.3-5.1); Sodium 141 mmol/L (135-145)
[2022-10-18 07:59] VITALS: BP 132/80; PULSE 74; RESP 20; TEMP 36.6; O2SAT 99
[2022-10-18] MEDS: Aspirin Enteric Coated 81 MG TABLET.DR PO (08:37)
[2022-10-18] MEDS: Pregabalin 150 MG CAPSULE 300 MG PO (08:37)
[2022-10-18] MEDS: polyethylene glycoL 3350 17 GM POWD.PACK PO (08:37)
[2022-10-18] MEDS: levoFLOXacin/D5W 250 MG/50 ML PIGGYBACK IV (08:49)
[2022-10-18] MEDS: oxyCODONE HCl Immed Release 5 MG TABLET 10 MG PO (08:54)
[2022-10-18] MEDS: Lactulose 20 GM/30 ML SOLUTION 10 GM PO (10:41)
[2022-10-18 11:38] LABS: Glucose, Whole Blood 103 mg/dL (60-115)
[2022-10-18 11:57] VITALS: BP 136/74; PULSE 75; RESP 20; TEMP 37.1; O2SAT 99
--- NOTE | 2022-10-18 13:38 | MHC.CM.PN ---
Addendum entered by Emmanuelle Adams 10/18/22 14:24: DP: PT HAS BEEN MEDICALLY CLEARED TO DC HOME, NO SERVICES. FAMILY WILL TRANSPORT Addendum entered by Emmanuelle Adams 10/18/22 13:40: EMR REVIEWED AND PER MD ROUNDS, PT NOT YET MEDICALLY CLEARED FOR DC. (SMOOTH, ACUTE DIVERTICULITIS) CM WILL CONTINUE TO FOLLOW FOR ANY CHANGE IN DC NEEDS/PLAN Original Note: em
--- NOTE | 2022-10-18 14:00 | PM.DS ---
DS: Providers Provider Date of Service: 10/18/22 Date of admission: 10/17/22 01:28 Primary care physician: Ludy Jaramillo MD DS: Summary Hospital Course Hospital Course: Date of Service: 10/17/22 Attending physician on admission: Inder Qureshi Chief Complaint: SEPSIS / SMOOTH/ DIVERTICULITIS HPI: ?56-year-old male with a history of hypertension, BPH, hyperlipidemia,Diverticulitis, neuropathy, constipation for which he took laxatives, type 2 diabetes, chronic back pain among others presented to the emergency room with complaints of neck and back pain as he had fallen on 07/16/2022 ; patient had reported increased his lower extremity numbness especially when sitting on the toilet for long time along with more generalized weakness, he had been in the bathroom and fell on the floor had denied loss of consciousness or head trauma. he does admit to me having lower abdominal pain from right to left for the past 24 hours or so, he thought he was constipated and he took laxatives, has been feeling weaker than usual and very thirsty.? He does not use insulin although he is a diabetic.? Denies any diarrhea, nausea, vomiting, melena, hematochezia. ? The ED workup was significant for white count 21.6, H&H of 13.5, hematocrit 40.9, platelets 298.? Sodi 136, potassium 4.5, chloride 107, carbon dioxide 19, anion gap 15, BUN 35, creatinine 3.51, LFTs within normal limits.? CT of the abdomen and pelvis shows mild sigmoid diverticulitis without free air fluid collection, no renal calculi.? Other images including chest x-ray and head CT showed no acute pathology.? Patient had been given 2.5 L of fluid and although his blood pressure had been stable throughout the afternoon, he had become hypotensive with the lowest blood pressure of 73/40.? He was given Rocephin initially and later switched to Zosyn.? Given the ongoing hypotension, a central line was placed in the ER and the patient was started on vasopressors, patient was transferred to the ICU for further care. hospital course: 56-year-old gentleman with past medical history of diabetes mellitus type 2 on insulin, hypertension, metabolic syndrome, obesity, chronic constipation, urinary retention, history of greater than 1 pack per day smoking,, chronic back pain , history of diverticulosis and diverticulitis in the past status post colonoscopy in April 2019 noted to have 2 tubular adenomas, presented to ED due to lower extremity numbness mostly when sitting on the toilet for long period of time, generalized weakness, on the day of admission patient was in the bathroom he tried to get up but fell to the floor denied loss of consciousness, no head injury no chest pain or shortness of breath but complained of generalized weakness he denied fever chills he also complained of lower abdominal pain since the day prior to admission with no radiation no associated nausea, vomiting or diarrhea denied any blood in stool patient in the ED noted to have hypotension treated with IV fluids since BP remained low was admitted to ICU for pressors and close monitoring. patient admitted to intensive care unit due to acute hypotension likely due to dehydration and use of antihypertensive, hypotension did not response to IV fluids patient admitted to ICU treated with IV pressors , antihypertensive medications were held blood pressure improved patient subsequently transferred to regular floor BP improved and remains stable, will place back on low-dose losartan 25 mg home dose was 100 mg losartan In regard to? Acute diverticulitis,with history of chronic leukocytosis, no other features of sepsis noted,normal vitals and LA, patient treated with IV vancomycin and Flagyl abdominal pain significantly improved WBC trending down blood cultures x2 negative, since patient is tolerating diet and moving bowels he is being discharged home on Levaquin 500 mg and Flagyl 500 mg 1 tablet twice daily for 5 more days he is recommended to take bland diet for next few days and have outpatient follow-up with primary research leader Dr. Chapman. ? Acute kidney injury noted to have creatinine of 3.51 with a baseline creatinine of 1 on July 2022, likely? pre renal responded to IV fluids creatinine normalized recommend to DC NSAIDs and placed back on low-dose losartan. ?History of urinary retention , Mcknight catheter placed continue Flomax recommend outpatient follow-up with Dr. Arellano in 1-2 weeks. ?Diabetes mellitus? blood sugar less than 200, recommend to follow diabetic diet and continue metformin and Mounjaro subq, follow blood sugar closely. Chronic back pain on Lyrica and oxycodone , recommend outpatient follow-up with PCP ?hyperlipidemia continue statin ?low TSH 0.23 with no prior history of thyroid issues, normal TSH January of 2022, will check free T4 and total T3 ?tobacco use disorder counseling done,? resume home medication varenicline. Time Spent with Patient Time attestation: Total time managing care of this patient today ____ minutes. Discharge coordination time: Greater than 30 minutes Quality: Safe Use of Opioids Does Pt have an Active Cancer Diagnosis on the Problem List?: No Quality: Stroke Does the patient have a stroke diagnosis?: No Physical Exam Vital Signs: Vital Signs: Last Vital Signs Temp 98.8 F 10/18/22 11:57 Pulse 75 10/18/22 11:57 Resp 20 10/18/22 11:57 BP 136/74 10/18/22 11:57 Pulse Ox 99 10/18/22 11:57 O2 Del Method Room Air 10/18/22 11:57 BMI result Body Mass Index 36.2 Const: Other: General awake alert x3, in no acute distress. Neck is supple no JVD. CVS regular rate rhythm, Respiratory lungs clear to auscultation, no respiratory distress, no wheeze, no rhonchi. Gastrointestinal abdomen soft, non tender, bowel sounds audible, no guarding , no rigidity. Extremities no edema. Neuro nonfocal Skin no rash psych appropriate affect DS: Data Data Completed and Pending Labs on day of discharge: Laboratory Results - last 24 hr 10/17/22 10/17/22 10/18/22 16:20 19:53 06:35 WBC 14.2 H RBC 4.31 L Hgb 11.6 L Hct 35.0 L MCV 81.2 MCH 26.9 L MCHC 33.1 RDW 14.4 Plt Count 299 D MPV 11.4 Absolute Nucleated RBC 0.000 Nucleated RBC % (auto) 0.0 Sodium Potassium Chloride Carbon Dioxide Anion Gap BUN Creatinine Estim Creat Clear Calc Estimated GFR POC Glucose 120 H 153 H Random Glucose Calcium 10/18/22 10/18/22 10/18/22 06:35 07:16 11:33 WBC RBC Hgb Hct MCV MCH MCHC RDW Plt Count MPV Absolute Nucleated RBC Nucleated RBC % (auto) Sodium 141 Potassium 3.9 Chloride 110 H Carbon Dioxide 23 Anion Gap 12 BUN 11 Creatinine 1.03 Estim Creat Clear Calc 100.3 Estimated GFR > 60 POC Glucose 134 H 103 Random Glucose 126 H Calcium 10.4 H D Preliminary micro results at discharge 10/16/22 23:27 Blood Culture - Preliminary Blood - Venous No growth after 24 hours. 10/16/22 22:59 Blood Culture - Preliminary Blood - Venous No growth after 24 hours. Discharge Plan Discharge Anticipated Discharge Date/Time: 10/18/22 13:51 Patient Disposition: Home, Self-Care Discharge Diagnosis: acute sigmoid diverticulitis acute kidney injury hypotension Referrals: Ludy Jaramillo MD [Primary Care Provider] - 1 Week Discharge Medications: New polyethylene glycol 3350 17 gram Powder In Packet 17 g PO DAILY Qty: 30 0RF tamsulosin 0.4 mg Capsule 0.4 mg PO BEDTIME Qty: 30 0RF levofloxacin 500 mg tablet 500 mg PO DAILY 5 Days Qty: 5 0RF metronidazole 500 mg tablet 500 mg PO Q12H Qty: 10 0RF losartan 25 mg tablet 25 mg PO DAILY Qty: 30 0RF Continued (DME) FreeStyle Norma 2 [place] Misc See Rx Instructions .Route Qty: 1 0RF Rx Instructions: As directed (DME) FreeStyle Norma 2 Sensor Kit See Rx Instructions .ROUTE .COMPLEX Qty: 3 0RF Dose Instruction: DIRECTED TO TEST BLOOD SUGAR DIRECTED Rx Instructions: DIRECTED TO TEST BLOOD SUGAR DIRECTED Mounjaro 7.5 mg/0.5 mL pen injector 7.5 mg subcut QWEEK Qty: 2 3RF metformin 500 mg tablet extended release 24 hr 1,000 mg PO BID (DME) FreeStyle Lite Strips Strip See Rx Instructions Not Applicable TID Qty: 10 Rx Instructions: As directed (DME) pen needle, diabetic [BD Latonya 2nd Gen Pen Needle] 32 gauge x 5/32 needle See Rx Instructions .ROUTE .MEDSUPPLY Qty: 50 Rx Instructions: As directed once a week (DME) lancets [FreeStyle Lancets] 28 gauge misc See Rx Instructions topical TID Qty: 100 Rx Instructions: As directed once a day (DME) blood-glucose meter [FreeStyle Lite Meter] Kit See Rx Instructions .ROUTE .MEDSUPPLY Qty: 1 Rx Instructions: As directed once a day oxycodone 10 mg tablet 10 mg PO TID PRN (Reason: severe pain) atorvastatin 20 mg tablet 20 mg PO BEDTIME aspirin 81 mg tablet,delayed release (DR/EC) 81 mg PO DAILY hydrocodone bitartrate [Hysingla ER] 30 mg tablet,oral only,ext.rel.24 hr 30 mg PO BEDTIME sennosides-docusate sodium [Stimulant Laxative Plus] 8.6-50 mg tablet 1 tab-cap PO BEDTIME varenicline 0.5 mg tablet 0.5 mg PO DIRECTED Rx Instructions: take 1 tablet by mouth daily on days 1-3; then 1 tablet twice daily (morning and evening) on days 4-7 pregabalin [Lyrica] 300 mg capsule 300 mg PO DAILY Discontinued losartan 100 mg tablet 100 mg PO DAILY Discharge Orders: Discharge Order (Routine); Ordered 10/18/22 Ordered By: Misael Goodwin Diet: Diabetic diet Activity on Discharge: As tolerated Stand Alone Forms: Patient Portal Discharge page Care Plan Goals: acute sigmoid diverticulitis continue antibiotics Levaquin and Flagyl as described for total 5 days, eat bland diet for next 2-3 days take all home medication as prescribed Mcknight catheter placed in due to urinary retention with capping continue Flomax daily and follow-up with Urology in 1-2 weeks avoid regular use of diclofenac acid and all NSAIDs Health Concerns: diabetes mellitus /chronic back pain Plan of Treatment: outpatient follow-up with Dr. Eleazar Arellano from Urology call for appointment in next 1-2 weeks follow-up with Dr. Chapman from Gastroenterology call for appointment in 2-4 weeks Assessment: as above Patient Instructions: Diverticulitis (DC)
[2022-10-19 07:42] LABS: Fentanyl, urine Not Detected (Not Detect)
--- NOTE | 2022-10-21 09:08 | PM.EVENT ---
Event Note Date of Service: 10/21/22 Event Note: Microbiology reporting 1 set of 2 growing GPC in clusters after 5 days. likely contaminant. to be followed when finalized. Time Spent With Patient Time: Total time managing care of this patient today ____ minutes.
== END 2022-10-18 15:21 | disposition home or self-care (01) | DRG 391 ==
LOC: HO.ED 23:12 → HO.EDOVER 10-17 01:54 → HO.ICU 10-17 01:57 → HO.IMC 10-17 13:25
PROVIDERS: Internal Medicine Pulmonary Disease; Admitting Provider Physician Assistant Medical; Emergency Provider Emergency Medicine; PCP Internal Medicine; Visit Provider Hospitalist
DX: K57.32 Diverticulitis of large intestine without perforation or abscess without bleeding (principal); G93.41 Metabolic encephalopathy; F11.20 Opioid dependence, uncomplicated; M54.9 Dorsalgia, unspecified; G89.29 Other chronic pain; E86.0 Dehydration; N40.0 Benign prostatic hyperplasia without lower urinary tract symptoms; E78.5 Hyperlipidemia, unspecified; I95.2 Hypotension due to drugs; T46.5X5A Adverse effect of other antihypertensive drugs, initial encounter; E11.9 Type 2 diabetes mellitus without complications; R33.9 Retention of urine, unspecified; E88.81 Metabolic syndrome and other insulin resistance; E66.9 Obesity, unspecified; Z68.36 Body mass index [BMI] 36.0-36.9, adult; Z87.891 Personal history of nicotine dependence; Z79.82 Long term (current) use of aspirin; Z79.84 Long term (current) use of oral hypoglycemic drugs; Z79.899 Other long term (current) drug therapy
CPT/HCPCS: 36415; 70450; 71045; 74176; 80048; 80053; 80076; 80307; 81001; 82947; 83605; 83690; 83735; 84100; 84439; 84443; 84484; 85025; 85027; 85610; 85730; 86850; 86900; 86901; 87040; 87147; 87205; 93005; 99285; C1758; J0696; J1643; J1956; J2543; P9047

== ENCOUNTER → 2022-10-17 01:28 | Outpatient (BNV) | payer OTHER, SELFPAY | PROVIDERS: Admitting Provider Physician Assistant Medical; Emergency Provider Emergency Medicine; PCP Internal Medicine; Visit Provider Hospitalist | DX: K57.92 Diverticulitis of intestine, part unspecified, without perforation or abscess without bleeding (principal) | CPT/HCPCS: 99239; 99499 ==

== ENCOUNTER → 2022-10-17 01:28 | Outpatient (BNV) | payer OTHER, SELFPAY | PROVIDERS: Admitting Provider Physician Assistant Medical; Emergency Provider Emergency Medicine; PCP Internal Medicine; Visit Provider Physician Assistant Medical | DX: R10.9 Unspecified abdominal pain (principal); A41.9 Sepsis, unspecified organism; N17.9 Acute kidney failure, unspecified; G93.41 Metabolic encephalopathy | CPT/HCPCS: 99291 ==

== ENCOUNTER 2022-10-25 09:57 | Outpatient (AMB) | payer OTHER, SELFPAY ==
--- NOTE | 2022-10-25 10:01 | MHC.OFFVIS ---
Intake Vital Signs 10/25/22 10:03 Height 5 ft 10 in Weight 244 lb 11.41 oz BMI 35.1 Blood Pressure Location Lt brachial Position Sitting Intake Visit Reasons: ER follow up diverticulitis Intake Note: Paolo presents in the office as a ER follow up. CC: He states that he left the hospital and was told to follow up GI and Urology. This is his second flare up. 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 08/18/22: Pt presented to the ER in Mar with x1 week of LLQ and back pain with nausea. CT Abd/pel with L sided colon wall thickening and fat stranding suspicious for acute diverticulitis. Was discharged from ER on PO Augmentin. Currently no abd pain, N,V. No diarrhea. Constipated sometimes which is easily relieved with stool softeners. Most recent colo 04/2019 (Dr Hutchins): x2 tubular adenoma including a 10mm one. 10/25/22: Supposed to be booked for a colo next month however was admitted to the hospital last week for urinary retention as well as mild sigmoid diverticulitis. Today, reports resolution of the L sided abd discomfort still has R sided lower back pain. Seeing Urology in 2 weeks. Concerned about clinical progression of diverticular disease as his brother also needed a partial colon resection (although pt unsure of exact indication). [facility] Medical History Chronic back pain Diabetes History of paresthesia Hypertension Leukocytosis Uncontrolled type 2 diabetes mellitus with hyperglycemia Surgical History Hx of colonoscopy No pertinent past surgical history Family History Father Diabetes Mother Osteoporosis Social History Household Members: Spouse Household Members Other:: Housing: House Do you presently have visiting nurse or other home services: No Alcohol intake: never Patient Tobacco Use Status: Former Tobacco user Quit Date: 2 WEEKS AGO, ON CHANTIX Tobacco use type: Cigarette Second Hand Smoke Exposure: No Substance Use Type: Opiates service: No Current occupational status: employed 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, 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 Physical Exam Vital Signs: BMI result Body Mass Index 35.1 Gen appear: NAD HEENT: nonicteric, no cervical lymphadenopathy Chest: CTA CVS: Regular S1/S2 Abd: soft, nontender, nondistended, bowel sounds + Ext: no peripheral edema Neuro: A/Ox3, walking with the help of a cane Psych: interacting appropriately Assessment & Plan Assessment & Plan (1) Diverticulosis: Code(s): K57.90 - Diverticulosis of intestine, part unspecified, without perforation or abscess without bleeding (2) Personal history of colonic polyps: Code(s): Z86.010 - Personal history of colonic polyps Plan Reviewed with the pt that due to polyp >10 mm in 2020 as well as recent diverticulitis, meets the indication to have a diagnostic colonoscopy. This is his second uncomplicated diverticulitis episode this year. If colo confirms diverticular disease and no other pathology, pt is interested in seeing surgery for discussion of surgical resection. This will be set up in the next 8-10 weeks. Split PEG prep instructions were reviewed with the patient and hand out provided as well. He was also advised to hold his GLP-1 that week to help with bowel clean out as these meds can cause delayed motility. He knows to discuss this with his healthcare network pricing consultant as well. Follow up after colo. Coding Level of Care Code Est Pt Level 4 (97876) Diagnoses Diverticulosis K57.90 Personal history of colonic polyps Z86.010
[2022-10-25 10:03] VITALS: BMI 35.1
== END 2022-10-25 10:44 | disposition home or self-care (01) ==
PROVIDERS: PCP Internal Medicine; Visit Provider Internal Medicine
DX: K57.90 Diverticulosis of intestine, part unspecified, without perforation or abscess without bleeding (principal); Z86.010 Personal history of colon polyps
CPT/HCPCS: 99214

== ENCOUNTER → 2022-10-25 09:57 | Outpatient (BNVA) | payer OTHER, SELFPAY | PROVIDERS: PCP Internal Medicine; Visit Provider Internal Medicine ==

== ENCOUNTER 2022-11-03 10:03 | Outpatient (AMB) | payer OTHER, SELFPAY ==
--- NOTE | 2022-11-03 10:09 | A.OFFVIS_ITS ---
Intake Intake Visit Reasons: voiding trial Intake Note: Patient presents for voiding trial Urology Medications: tamsulosin Blood Thinner: aspirin PVR: Tax Assessor Required: No Accompanied by: Self / Same As Patient Allergies LISNOPRIL Allergy (Mild, Uncoded 11/03/22 10:23) Rash Medication List - Last Reconciled 11/03/22 by HARLEEN Brown- aspirin 81 mg PO DAILY blood sugar diagnostic (FreeStyle Lite Strips) As directed blood-glucose meter (FreeStyle Lite Meter kit) As directed once a day flash glucose scanning reader (FreeStyle Norma 2 [place]) As directed flash glucose sensor (FreeStyle Norma 2 Sensor kit) DIRECTED TO TEST BLOOD SUGAR DIRECTED hydrocodone bitartrate ER (Hysingla ER) 30 mg PO BEDTIME lancets (FreeStyle Lancets) As directed once a day losartan 25 mg PO DAILY metformin ER 1,000 mg PO BID oxycodone 10 mg PO TID PRN pen needle, diabetic (BD Latonya 2nd Gen Pen Needle) As directed once a week polyethylene glycol 3350 17 grams PO DAILY pregabalin (Lyrica) 300 mg PO DAILY rosuvastatin 20 mg PO BEDTIME sennosides-docusate sodium 8.6-50 mg (Stimulant Laxative Plus) 1 tab-cap PO BEDTIME tamsulosin 0.4 mg PO BEDTIME tirzepatide (Mounjaro) 7.5 mg (0.5 mL) subcut QWEEK varenicline mg PO HPI HPI Comments History of Present Illness Details Paolo is a very pleasant 56-year-old male patient of Dr. Serra. He has a past medical history of chronic back pain, diabetes, and hypertension. He presents to the office today as a new patient for urinary retention. In discussion with the patient today he reports approximately 3 weeks ago seeking emergency room care for difficulties urinating, generalize weakness, accidental fall, and confusion. In review of patient's chart it appears he was admitted to the ICU at which time a 16 Irish Mcknight coude catheter was placed for urinary retention. Voiding trial performed in office. Patient was able to void on his own. When asked patient reports approximately 2 months ago discussing with his PCP that he had been having urinary issues at which time he was started on tamsulosin. He reports to be compliant with 0.4mg of Flomax daily. Discussed at length potential causes and affects of urinary retention. He reports prior to Mcknight catheter insertion he had been experiencing feelings of incomplete bladder emptying, weak stream, urinary urgency and frequency with minimal urine output. He otherwise denies incontinence, nocturia, hematuria, dysuria, foul smelling urine, changes to urinary stream, flank pain, fever, and or chills. [facility] Medical History Chronic back pain Diabetes History of paresthesia Hypertension Leukocytosis Uncontrolled type 2 diabetes mellitus with hyperglycemia Surgical History Hx of colonoscopy No pertinent past surgical history Family History Father Diabetes Mother Osteoporosis Social History Household Members: Spouse Household Members Other:: Housing: House Do you presently have visiting nurse or other home services: No Alcohol intake: never Patient Tobacco Use Status: Former Tobacco user Quit Date: 2 WEEKS AGO, ON CHANTIX Tobacco use type: Cigarette Second Hand Smoke Exposure: No Substance Use Type: Opiates service: No Current occupational status: employed 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, 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 Review of Systems Const Reports as per HPI Eyes Reports no additional complaints ENT Reports no additional complaints Card Reports as per HPI Resp Reports no additional complaints GI Reports no additional complaints Reports as per HPI Neuro Reports no additional complaints Endo Reports as per HPI Physical Exam Const General: cooperative, healthy appearing, comfortable, no acute distress, well developed, alert and awake Orientation/consciousness: patient oriented x3 Limitations: no limitations HEENT Head: Yes normal to inspection, Yes normocephalic and Yes atraumatic Ears: hearing grossly normal bilaterally Eyes General: appearance normal, both eyes and all related structures Neck Neck: Yes normal visual inspection and Yes trachea midline Chest Chest palpation & inspection: normal inspection of the chest Resp Effort & Inspection: normal respiratory effort and able to speak in complete sentences Cardio Rate: regular rate GI Inspection: Yes normal to inspection General: Yes no CVA tenderness Back/Spine/Pelvis Back: no CVA tenderness Skin General skin exam: no rashes or lesions noted Neuro General: patient oriented x3 Extrem General: Yes normal to inspection Psych Appearance: grossly normal and well kempt Mental Status: mental status grossly normal Speech and movement: Normal speech and movement present and Clear speech present Affect: normal affect Attitude: cooperative Thought process: Normal thought process present Thought content: Normal thought content present Insight: Fair insight present (Psych) Judgement: Fair judgement present (Psych) Office Procedures Bladder/Catheter Procedure Details: 120 ml's sterile water inserted into the bladder via indwelling Mcknight catheter. Mcknight catheter balloon was deflated and Mcknight catheter was removed. Patient was able to void 110 mL of pink-tinged clear urine with no difficulty. [id number] of Bladder Procedure code (CPT) selection complete Assessment & Plan Assessment & Plan (1) Lower urinary tract symptoms: Code(s): R39.9 - Unspecified symptoms and signs involving the genitourinary system (2) Urinary retention: Code(s): R33.9 - Retention of urine, unspecified Plan Voiding trial performed Patient was successful able to urinate independently. Continue 0.4 mg of Flomax daily. Discussed and stressed the importance of managing diabetes for improvement in urinary symptoms as well as overall health and well being. Will obtain retroperitoneal ultrasound for further assessment evaluation. Will await assessment of PSA due to recent Mcknight catheter placement. Discussed, educated, and encouraged on the importance of drinking plenty of water daily and calling office if unable to void or having difficulty voiding; and or seek medical treatment if not voiding, fever, chills, abdominal pain, nausea and or vomiting. For follow-up in 6-8 weeks with imaging to be completed prior; or sooner with any questions, issues, or concerns. Orders: Orders US retroperitoneal comp Today R33.9 - Retention of urine, unspecified, R39.9 - Unspecified symptoms and signs involving the genitourinary system Patient Instructions: The patient had an opportunity to ask questions regarding the treatment plan. All questions were answered. Physical exam, labs, and imaging were discussed and reviewed in detail. As well as risks, benefits, and discussion of treatment choices. No major barriers to understanding were identified. The patient expressed understanding and agreement with the above treatment plan. The patient was made aware they should contact our office by phone for worsening of their current condition, the appearance of new symptoms, or with any questions or concerns. Compliance is encouraged with any medications and follow up testing that is ordered. It is a privilege to be allowed the opportunity to participate in? your urological care.? Again, if you have any questions or concerns If you have any questions or concerns please do not hesitate to contact me. The office is [phone]. This note is constructed using voice recognition software. While every effort has been made to ensure accuracy basketballs and footballs reverser errors may have been included. Yours sincerely, HARLEEN Brown- Coding Level of Care Code New Pt Level 4 (62561) Diagnoses Lower urinary tract symptoms R39.9 Urinary retention R33.9 CPT Codes Bladder/Catheter Procedure - CPT: 36414-[id number] of Bladder ([id number]) Time Spent (min) 35
== END 2022-11-03 10:43 | disposition home or self-care (01) ==
PROVIDERS: PCP Internal Medicine; Referring Provider Internal Medicine; Visit Provider Nurse Practitioner Family
DX: R39.9 Unspecified symptoms and signs involving the genitourinary system (principal); R33.9 Retention of urine, unspecified
CPT/HCPCS: 51700; 99204

== ENCOUNTER → 2022-11-03 10:03 | Outpatient (BNVA) | payer OTHER, SELFPAY | PROVIDERS: PCP Internal Medicine; Referring Provider Internal Medicine; Visit Provider Nurse Practitioner Family | DX: R33.9 Retention of urine, unspecified (principal); R39.9 Unspecified symptoms and signs involving the genitourinary system; Z79.899 Other long term (current) drug therapy | CPT/HCPCS: 51700 ==

== ENCOUNTER 2022-11-12 15:49 | Outpatient (REF) | payer OTHER, SELFPAY ==
--- NOTE | ~2022-11-12 | US_ITS ---
EXAMINATION: US RETROPERITONEAL LIMITED (RENAL ONLY) CLINICAL INFORMATION: Retention of urine, unspecified. COMPARISON: CT abdomen and pelvis 10/16/2022. TECHNIQUE: Real-time imaging of the kidneys. FINDINGS: RIGHT KIDNEY: 11.0 x 5.1 x 4.0 cm (SAG x AP x TRV). The kidney is normal in size, contour, and echogenicity. Renal cortical thickness is normal. No calculi or focal parenchymal lesions. No hydronephrosis. LEFT KIDNEY: 11.2 x 5.5 x 5.0 cm (SAG x AP x TRV). The kidney is normal in size, contour, and echogenicity. Renal cortical thickness is normal. No calculi or focal parenchymal lesions. No hydronephrosis. US/US retroperitoneal limited IMPRESSION: Normal renal ultrasound.
== END 2022-11-12 15:50 | disposition home or self-care (01) ==
LOC: HO.US 15:49
PROVIDERS: Visit Provider Nurse Practitioner Family
DX: R33.9 Retention of urine, unspecified (principal); R39.9 Unspecified symptoms and signs involving the genitourinary system
CPT/HCPCS: 76775

== ENCOUNTER 2022-11-15 13:13 | Outpatient (REF) | payer OTHER, SELFPAY ==
--- NOTE | ~2022-11-15 | US_ITS ---
EXAMINATION: US PELVIS LIMITED (BLADDER) CLINICAL INFORMATION: Urinary retention. Lower urinary tract symptoms. COMPARISON: CT abdomen and pelvis 10/16/2022. TECHNIQUE: Real-time imaging of the bladder. Limited visualization due to bowel gas. FINDINGS: BLADDER: Bladder wall thickness of 0.7 cm, however, bladder only moderately distended, limiting evaluation. Mild diffuse irregularity/trabeculations of the bladder wall. Bilateral ureteral jets are demonstrated. Prevoid bladder volume is 154 mL. Postvoid bladder volume is 11.1 mL. Enlarged prostate, volume 42.9 mL. Echogenic foci within the prostate gland is characteristic of small calcifications. US/US bladder IMPRESSION: 1. Bladder wall thickness of 0.7 cm, however, bladder only moderately distended, limiting evaluation. Mild diffuse irregularity/trabeculations of the bladder wall. 2. Enlarged prostate, volume 42.9 mL.
== END 2022-11-15 13:14 | disposition home or self-care (01) ==
LOC: HO.US 13:13
PROVIDERS: Visit Provider Nurse Practitioner Family
DX: R33.9 Retention of urine, unspecified (principal)
CPT/HCPCS: 76857

== ENCOUNTER 2022-11-25 17:59 | Outpatient (REF) | payer OTHER, SELFPAY ==
--- NOTE | ~2022-11-25 | MR_ITS ---
EXAMINATION: MR SHOULDER WITHOUT CONTRAST, RIGHT CLINICAL INFORMATION: Right shoulder pain. Chronic pain. Arthritis. Limited range of motion. Lifting injury in 2019. COMPARISON: Right shoulder radiographs dated 10/26/2021. TECHNIQUE: MRI of the shoulder without contrast was performed on a high-field scanner. FINDINGS: ROTATOR CUFF: Minimal supraspinatus and mild subscapularis tendinosis. No measurable rotator cuff tendon tear. No muscle atrophy or fatty infiltration. BICEPS: Proximal long head biceps tendon thickening and increased T2 signal, consistent with tendinosis. No transverse tendon tear or tendon retraction. CORACOACROMIAL ARCH: The undersurface of the acromion is curved with small subacromial spurs. Severe acromioclavicular osteoarthritis with prominent marrow and capsular edema. Edema may be degenerative or represent early acromioclavicular osteolysis in the setting of an overuse injury. LABRUM/CAPSULE: Thin linear fluid signal within the undersurface of the posterior/posteroinferior labrum with a large posteromedial paralabral cyst measuring up to 2.4 x 4.9 x 3.5 cm (AP by ML by CC). This extends medially along the posterior aspect of the glenoid and scapular body. Intact joint capsule. GLENOHUMERAL JOINT/MARROW: Intact articular cartilage. No significant joint effusion. MR/MR shoulder RT wo con IMPRESSION: 1. Severe acromioclavicular osteoarthritis with prominent marrow and capsular edema. Edema may be degenerative or represent early acromioclavicular osteolysis in the setting of an overuse injury. 2. Thin linear undersurface tear of the posterior/posteroinferior labrum with a large posteromedial paralabral cyst measuring up to 4.9 cm. 3. Supraspinatus and subscapularis tendinosis without a measurable rotator cuff tendon tear. 4. Proximal long head biceps tendinosis without a transverse tendon tear or tendon retraction.
== END 2022-11-25 18:00 | disposition home or self-care (01) ==
LOC: HO.MRI 17:59
PROVIDERS: PCP Internal Medicine; Visit Provider Physician Assistant
DX: M75.81 Other shoulder lesions, right shoulder (principal); M19.011 Primary osteoarthritis, right shoulder
CPT/HCPCS: 73221

== ENCOUNTER 2022-12-10 13:45 | Outpatient (AMB) | payer OTHER, SELFPAY ==
--- NOTE | 2022-12-10 13:56 | A.OFFVIS_ITS ---
Intake Vital Signs 12/10/22 13:59 Height 5 ft 10 in Weight 244 lb BMI 35.0 Intake Visit Reasons: ov-ACROMICLAVICULAR JOINT ARTHRITIS Intake Note: Paolo 56 yr old male presents today for his MRI of right shoulder. States he cont's to have on and off pain. Allergies LISNOPRIL Allergy (Mild, Uncoded 12/10/22 14:00) Rash HPI ov-ACROMICLAVICULAR JOINT ARTHRITIS HPI Details 56-year-old male who returns to the [facility] today for a MRI review of right shoulder. He continues to have intermittent pain, weakness as well as numbness and tingling in his shoulder which radiates down to his arm. He had an injection in the past which provided him relief. He is currently taking pain medications which did not provide him any relief. He also reports sustaining a recent fall. He has a history of diabetes. His sugar level is currently controlled. He is scheduled for a spinal stimulator later this month with [facility] Medical History Chronic back pain Diabetes History of paresthesia Hypertension Leukocytosis Uncontrolled type 2 diabetes mellitus with hyperglycemia Surgical History Hx of colonoscopy No pertinent past surgical history Family History Father Diabetes Mother Osteoporosis Social History Household Members: Spouse Household Members Other:: Housing: House Do you presently have visiting nurse or other home services: No Alcohol intake: never Patient Tobacco Use Status: Former Tobacco user Quit Date: 2 WEEKS AGO, ON CHANTIX Tobacco use type: Cigarette Second Hand Smoke Exposure: No Substance Use Type: Opiates service: No Current occupational status: employed 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 Tenderness over the bicipital groove and along the deltoid region of the shoulder. FF to 175, ER to 90, IR to S1. 5/5 RTC strength, negative carpenter, cross body abduction. NVI. Results Reviewed Results Reviewed: MR shoulder RT wo con IMPRESSION: 1. Severe acromioclavicular osteoarthritis with prominent marrow and capsular edema. Edema may be degenerative or represent early acromioclavicular osteolysis in the setting of an overuse injury. 2. Thin linear undersurface tear of the posterior/posteroinferior labrum with a large posteromedial paralabral cyst measuring up to 4.9 cm. 3. Supraspinatus and subscapularis tendinosis without a measurable rotator cuff tendon tear. 4. Proximal long head biceps tendinosis without a transverse tendon tear or tendon retraction. Assessment & Plan Assessment & Plan (1) Rotator cuff tendonitis: Code(s): M75.80 - Other shoulder lesions, unspecified shoulder Qualifiers: Laterality: right Qualified Code(s): M75.81 - Other shoulder lesions, right shoulder (2) Acromioclavicular joint arthritis: Code(s): M19.019 - Primary osteoarthritis, unspecified shoulder Qualifiers: Laterality: right Qualified Code(s): M19.011 - Primary osteoarthritis, right shoulder Plan He is in the process of obtaining a spinal stimulator by [facility] [employer]. I do recommend an injection in the right shoulder as it has been helped him in the past. We can do this in 1 month since it has not been 3 months since his last injection. In the future, if his symptoms persist after repeat inject ion, I encouraged him to make an appointment with Dr. Nicole. to discuss whether or not he would benefit from surgical intervention. Patient Instructions: Scribed for Jese Jarquin PA-C, by Paul Hewitt medical imaging specialist, on 12/10/2022 at 2:15 PM EST. I, Jese Jarquin PA-C, have personally reviewed and agree with the information entered by the scribe. Coding Level of Care Code Est Pt Level 3 (05645) Diagnoses Tendinitis of right rotator cuff M75.81 Laterality: right Arthritis of right acromioclavicular joint M19.011 Laterality: right
[2022-12-10 13:59] VITALS: BMI 35.0
== END 2022-12-10 15:31 | disposition home or self-care (01) ==
PROVIDERS: PCP Internal Medicine; Visit Provider Physician Assistant
DX: M75.81 Other shoulder lesions, right shoulder (principal); M19.011 Primary osteoarthritis, right shoulder
CPT/HCPCS: 99213

== ENCOUNTER → 2022-12-10 13:45 | Outpatient (BNVA) | payer OTHER, SELFPAY | PROVIDERS: PCP Internal Medicine; Visit Provider Physician Assistant ==

== ENCOUNTER 2022-12-16 14:52 | Outpatient (AMB) | payer OTHER, SELFPAY ==
--- NOTE | 2022-12-16 15:06 | MHC.OFFVIS ---
Intake Intake Visit Reasons: 6w/US(set) Intake Note: Patient presents for Urology Medications: tamsulosin Blood Thinner: aspirin PVR:57mls Collar Shaper Operator Required: No Accompanied by: Self / Same As Patient Allergies LISNOPRIL Allergy (Mild, Uncoded 12/16/22 20:24) Rash Medication List - Last Reconciled 12/16/22 by HARLEEN Brown- aspirin 81 mg PO DAILY blood sugar diagnostic (FreeStyle Lite Strips) As directed blood-glucose meter (FreeStyle Lite Meter kit) As directed once a day flash glucose scanning reader (FreeStyle Norma 2 Igo) As directed flash glucose sensor (FreeStyle Norma 2 Sensor kit) DIRECTED TO TEST BLOOD SUGAR DIRECTED hydrocodone bitartrate ER (Hysingla ER) 30 mg PO BEDTIME lancets (FreeStyle Lancets) As directed once a day losartan 25 mg PO DAILY metformin ER 1,000 mg PO BID oxycodone 10 mg PO TID PRN pen needle, diabetic (BD Latonya 2nd Gen Pen Needle) As directed once a week polyethylene glycol 3350 17 grams PO DAILY pregabalin (Lyrica) 300 mg PO DAILY rosuvastatin 20 mg PO BEDTIME sennosides-docusate sodium 8.6-50 mg (Stimulant Laxative Plus) 1 tab-cap PO BEDTIME tamsulosin 0.4 mg PO BEDTIME tirzepatide (Mounjaro) 7.5 mg (0.5 mL) subcut QWEEK varenicline mg PO HPI HPI Comments History of Present Illness Details Paolo is a very pleasant 56-year-old male patient of Dr. Serra. He has a past medical history of chronic back pain, diabetes, and hypertension. He presents to the office today for follow-up. Of note, patient was seen approximately 6 weeks ago as a new patient for urinary retention at which time a voiding trial was performed in office and the patient was able to successfully pass the voiding trial. Recommendations were made for retroperitoneal ultrasound to be ordered for further assessment evaluation. These results were reviewed with the patient today. Bilateral kidneys with no calculi, lesions, and or hydronephrosis noted. The bladder wall thickness of 0.7 cm, however, bladder only moderately distended, limiting evaluation. Mild diffuse irregularity/trabeculations of the bladder wall. Enlarged prostate, volume approximately 43 mL. When asked he reports compliance with 0.4 mg of Flomax daily. He reports noting significant improvement in lower urinary tract symptoms. He denies having had any issues with his urination since his last office visit here approximately 6 weeks ago. Discussed at length potential causes and affects of urinary retention. Discussed bladder wall thickness and enlarged prostate. Will obtain PSA for further assessment evaluation. He reports noting feelings of incomplete bladder emptying, weak stream, and urinary urgency and frequency to have improved. He otherwise denies incontinence, nocturia, hematuria, dysuria, foul smelling urine, changes to urinary stream, flank pain, fever, and or chills. In office urinalysis results reviewed with the patient today. PVR 57ml's. [facility] Medical History History of paresthesia Chronic back pain Leukocytosis Uncontrolled type 2 diabetes mellitus with hyperglycemia Hypertension Diabetes Surgical History Hx of colonoscopy No pertinent past surgical history Family History Father Diabetes Mother Osteoporosis Social History Household Members: Spouse Household Members Other:: Housing: House Do you presently have visiting nurse or other home services: No Alcohol intake: never Patient Tobacco Use Status: Former Tobacco user Quit Date: 2 WEEKS AGO, ON CHANTIX Tobacco use type: Cigarette Second Hand Smoke Exposure: No Substance Use Type: Opiates service: No Current occupational status: employed 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, 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 Review of Systems Const Reports as per HPI Eyes Reports no additional complaints ENT Reports no additional complaints Card Reports as per HPI Resp Reports no additional complaints GI Reports no additional complaints Reports as per HPI Neuro Reports no additional complaints Endo Reports as per HPI Physical Exam Const General: cooperative, healthy appearing, comfortable, no acute distress, well developed, alert and awake Orientation/consciousness: patient oriented x3 Limitations: ambulation with cane HEENT Head: Yes normal to inspection, Yes normocephalic and Yes atraumatic Ears: hearing grossly normal bilaterally Eyes General: appearance normal, both eyes and all related structures Neck Neck: Yes normal visual inspection and Yes trachea midline Chest Chest palpation & inspection: normal inspection of the chest Resp Effort & Inspection: normal respiratory effort and able to speak in complete sentences Cardio Rate: regular rate GI Inspection: Yes normal to inspection General: Yes no CVA tenderness Back/Spine/Pelvis Back: no CVA tenderness Skin General skin exam: no rashes or lesions noted Neuro General: patient oriented x3 Extrem General: Yes normal to inspection Psych Appearance: grossly normal and well kempt Mental Status: mental status grossly normal Speech and movement: Normal speech and movement present and Clear speech present Affect: normal affect Attitude: cooperative Thought process: Normal thought process present Thought content: Normal thought content present Insight: Fair insight present (Psych) Judgement: Fair judgement present (Psych) Office Procedures Post Void Residual Post Residual Void Post Void Residual (PVR): 57 [id number] Void Residual by ultrasound Results AMB Urinalysis, Automated UA Leukoctes 0 Ghada/uL Last Edit by [employer] on 12/16/22 15:28 UA Nitrite Negative Last Edit by [employer] on 12/16/22 15:28 UA Urobilinogen 0.2 mg/dL Last Edit by [employer] on 12/16/22 15:28 UA Protein 0 mg/dL Last Edit by [employer] on 12/16/22 15:28 UA pH 5.5 Last Edit by [employer] on 12/16/22 15:28 UA Blood 0 Kade/uL Last Edit by [employer] on 12/16/22 15:28 UA Specific [place] 1.030 Last Edit by [employer] on 12/16/22 15:28 UA Ketone Negative Last Edit by [employer] on 12/16/22 15:28 UA Bilirubin 0 mg/dL Last Edit by [employer] on 12/16/22 15:28 UA Glucose 0 mg/dL Last Edit by [employer] on 12/16/22 15:28 Results Reviewed Results Reviewed: Laboratory Last Values Urine pH (Auto) 5.5 12/16/22 15:12 Specific [place] (Auto) 1.030 12/16/22 15:12 Urine Protein (Auto) 0 mg/dL 12/16/22 15:12 Glucose (UA)(Auto) 0 mg/dL 12/16/22 15:12 Urine Ketones (Auto) Negative 12/16/22 15:12 Urine Blood (Auto) 0 Kade/uL 12/16/22 15:12 Urine Nitrite (Auto) Negative 12/16/22 15:12 Urine Bilirubin (Auto) 0 mg/dL 12/16/22 15:12 Urine Urobilinogen (Auto) 0.2 mg/dL 12/16/22 15:12 Leukocyte Esterase (Auto) 0 Ghada/uL 12/16/22 15:12 Date of Service: 11/12/22 EXAMINATION: US RETROPERITONEAL LIMITED (RENAL ONLY) FINDINGS: RIGHT KIDNEY: 11.0 x 5.1 x 4.0 cm (SAG x AP x TRV). The kidney is normal in size, contour, and echogenicity. Renal cortical thickness is normal. No calculi or focal parenchymal lesions. No hydronephrosis. LEFT KIDNEY: 11.2 x 5.5 x 5.0 cm (SAG x AP x TRV). The kidney is normal in size, contour, and echogenicity. Renal cortical thickness is normal. No calculi or focal parenchymal lesions. No hydronephrosis. IMPRESSION: Normal renal ultrasound. Date of Service: 11/15/22 EXAMINATION: US PELVIS LIMITED (BLADDER) FINDINGS: BLADDER: Bladder wall thickness of 0.7 cm, however, bladder only moderately distended, limiting evaluation. Mild diffuse irregularity/trabeculations of the bladder wall. Bilateral ureteral jets are demonstrated. Prevoid bladder volume is 154 mL. Postvoid bladder volume is 11.1 mL. Enlarged prostate, volume 42.9 mL. Echogenic foci within the prostate gland is characteristic of small calcifications. IMPRESSION: 1. Bladder wall thickness of 0.7 cm, however, bladder only moderately distended, limiting evaluation. Mild diffuse irregularity/trabeculations of the bladder wall. 2. Enlarged prostate, volume 42.9 mL. Assessment & Plan Assessment & Plan (1) Urinary retention: Code(s): R33.9 - Retention of urine, unspecified (2) Bladder wall thickening: Code(s): N32.89 - Other specified disorders of bladder (3) Bladder trabeculation: Code(s): N32.89 - Other specified disorders of bladder (4) Enlarged prostate: Code(s): N40.0 - Benign prostatic hyperplasia without lower urinary tract symptoms (5) Lower urinary tract symptoms: Code(s): R39.9 - Unspecified symptoms and signs involving the genitourinary system Plan In office urinalysis results reviewed with the patient today; as noted above. PVR 54 mL. Recent renal bladder ultrasound results reviewed with the patient today; as noted above. Discussed at length potential causes of incomplete bladder emptying, urinary retention, in bladder wall thickening. Continue Flomax as discussed and prescribed. Will obtain PSA for further assessment evaluation. Discussed possible initiation of finasteride once PSA is obtained. Patient reports to be happy with current voiding parameters on 0.4 mg of Flomax daily. He otherwise denies any bothersome urinary issues at this time. Follow-up in 1 month with lab to be completed prior; or sooner with any issues, concerns, and or questions. Orders: Orders AMB Urinalysis Automated Today Z13.9 - Encounter for screening, unspecified AMB Post Void Residual by ultrasound Today R33.9 - Retention of urine, unspecified Prostate Specific Antigen Today R33.9 - Retention of urine, unspecified Patient Instructions: The patient had an opportunity to ask questions regarding the treatment plan. All questions were answered. Physical exam, labs, and imaging were discussed and reviewed in detail. As well as risks, benefits, and discussion of treatment choices. No major barriers to understanding were identified. The patient expressed understanding and agreement with the above treatment plan. The patient was made aware they should contact our office by phone for worsening of their current condition, the appearance of new symptoms, or with any questions or concerns. Compliance is encouraged with any medications and follow up testing that is ordered. It is a privilege to be allowed the opportunity to participate in? your urological care.? Again, if you have any questions or concerns If you have any questions or concerns please do not hesitate to contact me. The office is [phone]. This note is constructed using voice recognition software. While every effort has been made to ensure accuracy railroad yard worker errors may have been included. Yours sincerely, TAVO BrownP-BC Coding Level of Care Code Est Pt Level 3 (74593) Diagnoses Urinary retention R33.9 Bladder wall thickening N32.89 Bladder trabeculation N32.89 Enlarged prostate N40.0 Lower urinary tract symptoms R39.9 CPT Codes Post Residual Void - PVR CPT Code: 37819-Nguj Void Residual by ultrasound ([id number])
== END 2022-12-16 15:35 | disposition home or self-care (01) ==
PROVIDERS: PCP Internal Medicine; Visit Provider Nurse Practitioner Family
DX: R33.9 Retention of urine, unspecified (principal); N32.89 Other specified disorders of bladder; N40.0 Benign prostatic hyperplasia without lower urinary tract symptoms; R39.9 Unspecified symptoms and signs involving the genitourinary system; Z13.9 Encounter for screening, unspecified
CPT/HCPCS: 99213

== ENCOUNTER → 2022-12-16 14:52 | Outpatient (BNVA) | payer OTHER, SELFPAY | PROVIDERS: PCP Internal Medicine; Visit Provider Nurse Practitioner Family | DX: N40.1 Benign prostatic hyperplasia with lower urinary tract symptoms (principal); R33.8 Other retention of urine; N32.89 Other specified disorders of bladder; R39.9 Unspecified symptoms and signs involving the genitourinary system | CPT/HCPCS: 51798; 81003 ==

== ENCOUNTER 2022-12-18 08:50 | Outpatient (REF) | payer OTHER, SELFPAY ==
[2022-12-18 10:38] LABS: Estimated Average Glucose 111 mg/dL; Hemoglobin A1c % 5.5 % (<6.0)
[2022-12-18 11:05] LABS: Alanine Aminotransferase 13 U/L (0-40); Albumin Level 3.7 g/dL (3.5-5.0); Alkaline Phosphatase 55 U/L (39-117); Anion Gap 11 (12-20); Aspartate Amino Transferase 16 U/L (5-37); Bilirubin Total 0.4 mg/dL (0.0-1.0); Blood Urea Nitrogen 13 mg/dL (9-16); Calcium 10.1 mg/dL (8.4-10.2); Carbon Dioxide 25 mmol/L (22-29); Chloride 107 mmol/L (96-108); Estimated Glomerular Filt Rate > 60; Glucose Random 117 mg/dL (60-115); Potassium 4.1 mmol/L (3.3-5.1); Sodium 139 mmol/L (135-145)
[2022-12-18 11:16] LABS: Free T4 (Free Thyroxine) 1.05 ng/dL (0.71-1.85); Thyroid Stimulating Hormone 0.89 uIU/mL (0.32-4.0)
[2022-12-18 11:44] LABS: Prostate Specific Antigen 0.46 ng/mL (<0.05-4.0)
== END 2022-12-18 08:51 | disposition home or self-care (01) ==
LOC: HO.LAB 08:50
PROVIDERS: Absent Provider Internal Medicine; PCP Internal Medicine; Visit Provider Nurse Practitioner Family
DX: R33.9 Retention of urine, unspecified (principal); E05.90 Thyrotoxicosis, unspecified without thyrotoxic crisis or storm; E11.9 Type 2 diabetes mellitus without complications; K57.90 Diverticulosis of intestine, part unspecified, without perforation or abscess without bleeding; N40.1 Benign prostatic hyperplasia with lower urinary tract symptoms; Z12.5 Encounter for screening for malignant neoplasm of prostate
CPT/HCPCS: 36415; 80053; 83036; 84153; 84439; 84443

== ENCOUNTER 2022-12-30 08:57 | Day surgery (SDC) | payer OTHER, SELFPAY ==
[2022-12-28 09:08] VITALS: BMI 35.0
--- NOTE | 2022-12-29 10:49 | HO.ANESPROP2 ---
Documented by User: Hali Guillen NP 12/29/22 10:56 HPI - Anesthesia Eval Consult details Narrative: 57yo M for Colonoscopy Anesthesia Pre-Procedure Meds Is the patient on any of the following meds?: Any other SGL-1 drugs or drugs that delay gastric emptying (States held >7 days) [facility] Active Problems Active Problems: All Active Problems (Updated 12/16/22 @ 20:34 by Brenda Bales [facility]) Enlarged prostate (Acute) Bladder trabeculation (Acute) Bladder wall thickening (Acute) Urinary retention (Acute) Lower urinary tract symptoms (Acute) Abdominal pain, acute (Acute) Diverticulitis (Acute) Personal history of colonic polyps (Acute) Diverticulosis (Acute) Abdominal pain (Acute) Flank pain (Acute) Back pain (Acute) Rotator cuff tendonitis (Acute) Acromioclavicular joint arthritis (Acute) Uncontrolled type 2 diabetes mellitus with hyperglycemia (Acute) Past Medical History Medical History History of paresthesia Chronic back pain Leukocytosis Uncontrolled type 2 diabetes mellitus with hyperglycemia Hypertension Diabetes Family History Family History Father Diabetes Mother Osteoporosis Surgical History Surgical History Hx of colonoscopy No pertinent past surgical history Social History Social History Household Members: Spouse Household Members Other:: Housing: House Do you presently have visiting nurse or other home services: No Alcohol intake: never Patient Tobacco Use Status: Former Tobacco user Quit Date: 2 WEEKS AGO, ON CHANTIX Tobacco use type: Cigarette Second Hand Smoke Exposure: No Substance Use Type: Opiates Advance Directives: No Advance Directives Information Provided: Yes service: No Current occupational status: employed 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, 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 Meds Allergies Allergy/AdvReac Type Severity Reaction Status Date / Time LISNOPRIL Allergy Mild Rash Uncoded 12/16/22 20:24 Home Medications Medication Instructions Recorded Confirmed Last Taken Type blood sugar diagnostic (MamadouStyle #10 ea 08/05/21 10/18/22 Unknown History Lite Strips) metformin 500 mg tablet,extended 1,000 mg PO BID 08/05/21 10/18/22 Unknown History release 24 hr oxycodone 10 mg tablet 10 mg PO TID PRN severe pain 11/09/21 10/18/22 Unknown History aspirin 81 mg tablet,delayed 81 mg PO DAILY 06/22/22 10/18/22 Unknown History release blood-glucose meter (FreeStyle #1 ea 06/22/22 10/18/22 Unknown History Lite Meter kit) lancets 28 gauge (FreeStyle #100 ea 06/22/22 10/18/22 Unknown History Lancets) pen needle, diabetic 32 gauge x #50 ea 06/22/22 10/18/22 Unknown History (BD Latonya 2nd Gen Pen Needle) pregabalin 300 mg capsule (Lyrica) 300 mg PO DAILY 08/18/22 10/18/22 Unknown History hydrocodone bitartrate 30 mg 30 mg PO BEDTIME 09/29/22 10/18/22 Unknown History tablet,crush resist,extended rel. 24hr (Hysingla ER) sennosides 8.6 mg-docusate sodium 1 tab-cap PO BEDTIME 09/29/22 10/18/22 Unknown History 50 mg tablet (Stimulant Laxative Plus) rosuvastatin 20 mg tablet 20 mg PO BEDTIME 10/25/22 Unknown History varenicline 1 mg tablet mg PO 10/25/22 Unknown History Exam Exam Date and Time: December 29, 2022 1049 Height,Weight and Vital Signs: Height 5 ft 10 in Weight 110.677 kg Pertinent Lab Results Pertinent Lab Results: Laboratory Tests 10/18/22 12/18/22 06:35 09:10 WBC 14.2 H Hgb 11.6 L Hct 35.0 L Plt Count 299 D Sodium 139 Potassium 4.1 Chloride 107 Carbon Dioxide 25 BUN 13 Creatinine 0.92 Narrative Narrative: EKG 09/2022 Vent. Rate : 072 BPM Atrial Rate : 072 BPM P-R Int : 162 ms QRS Dur : 086 ms QT Int : 350 ms P-R-T Axes : 026 -10 007 degrees QTc Int : 383 ms Normal sinus rhythm Normal ECG No previous ECGs available Assessment and Plan Assessment Anesthesia Assessment: Chart Reviewed Documented by User: Doris Armstrong MD 12/30/22 10:54 HPI - Anesthesia Eval Anesthesia Pre-Procedure Meds Is the patient on any of the following meds?: Any other SGL-1 drugs or drugs that delay gastric emptying (States held >7 days, fernie) If Yes to any meds - educate patient: Pt education - increased risk of aspiration and Pt education - possibility of cancelled proc at provider's discretion PMFSH Past Medical History Medical History History of paresthesia Chronic back pain Leukocytosis Uncontrolled type 2 diabetes mellitus with hyperglycemia Hypertension Diabetes Family History Family History Father Diabetes Mother Osteoporosis Family history of problems with anesthesia: No Surgical History Surgical History Hx of colonoscopy No pertinent past surgical history History of Problems with Anesthesia: No Social History Social History Household Members: Spouse Household Members Other:: Housing: House Do you presently have visiting nurse or other home services: No Alcohol intake: never Patient Tobacco Use Status: Former Tobacco user Quit Date: 2 WEEKS AGO, ON CHANTIX Tobacco use type: Cigarette Second Hand Smoke Exposure: No Substance Use Type: Opiates Advance Directives: No Advance Directives Information Provided: Yes service: No Current occupational status: employed 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, 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 Meds Allergies Allergy/AdvReac Type Severity Reaction Status Date / Time LISNOPRIL Allergy Mild Rash Uncoded 12/16/22 20:24 Home Medications Medication Instructions Recorded Confirmed Last Taken Type blood sugar diagnostic (FreeStyle #10 ea 08/05/21 10/18/22 Unknown History Lite Strips) metformin 500 mg tablet,extended 1,000 mg PO BID 08/05/21 10/18/22 Unknown History release 24 hr oxycodone 10 mg tablet 10 mg PO TID PRN severe pain 11/09/21 10/18/22 Unknown History aspirin 81 mg tablet,delayed 81 mg PO DAILY 06/22/22 10/18/22 Unknown History release blood-glucose meter (FreeStyle #1 ea 06/22/22 10/18/22 Unknown History Lite Meter kit) lancets 28 gauge (FreeStyle #100 ea 06/22/22 10/18/22 Unknown History Lancets) pen needle, diabetic 32 gauge x #50 ea 06/22/22 10/18/22 Unknown History (BD Latonya 2nd Gen Pen Needle) pregabalin 300 mg capsule (Lyrica) 300 mg PO DAILY 08/18/22 10/18/22 Unknown History hydrocodone bitartrate 30 mg 30 mg PO BEDTIME 09/29/22 10/18/22 Unknown History tablet,crush resist,extended rel. 24hr (Hysingla ER) sennosides 8.6 mg-docusate sodium 1 tab-cap PO BEDTIME 09/29/22 10/18/22 Unknown History 50 mg tablet (Stimulant Laxative Plus) rosuvastatin 20 mg tablet 20 mg PO BEDTIME 10/25/22 Unknown History varenicline 1 mg tablet mg PO 10/25/22 Unknown History Exam Airway Mallampati Class: II TM Dist: >3cm Neck ROM: Full Heart: rrr Lungs: cta Assessment and Plan Assessment Anesthesia Assessment: Anesthesia Plan Discussed and Smoking Cess. Discussed Final Anesthetic Review Family History of Problems with Anesthesia: No History of Problems with Anesthesia: No NPO: Yes ASA Class: III Final Preanesthetic Review: No Changes in Pt Med Stat, Meds/Allgs Chart Reviewed, Consent Obtained/Reviewed and Anes Risks/Benef Reviewed Patient Risk: Intermediate Procedure Risk: Low Anesthetic Plan Anesthetic Plan: MAC: Disposition: Standard PACU
--- OUTSIDE RECORDS SUMMARY | 2022-12-30 09:00 | XMS_ITS ---
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 Name Role Phone Unavailable Primary Care Physician Unavailab le Allergies and Adverse Reactions Name Reaction Notes NO KNOWN DRUG ALLERGIES - Phrees ia 02/02/2022 Problem List Description Status Onset Acute bilateral low back pain Active 03/03/2022 Acute neck pain Active 06/20/2022 Social History Name Description Comments Tobacco Current every day smoker - Phree chaka 02/02/2022 - Phreesia 02/02 History of Procedures Date Ordered Description Order Status 02/02/2022 12:00 AM MANUAL THERAPY 1/> REGIONS Re viewed 02/02/2022 12:00 AM THERAPEUTIC EXERCISES Reviewe d 02/02/2022 12:00 AM HOT OR COLD PACKS THERAPY Rev iewed 02/02/2022 12:00 AM Pain Assessment docu mented as positive using a standardized tool AND a follow-up plan is documented. Reviewed 02/03/2022 12:00 AM THERAPEUTIC EXERCISES Reviewe d 02/03/2022 12:00 AM PT Evaluation Moderate Comple xity Reviewed 02/03/2022 12:00 AM Pain Assessment docu mented as positive using a standardized tool AND a follow-up plan is documented. Reviewed 02/04/2022 12:00 AM MANUAL THERAPY 1/> REGIONS Re viewed 02/04/2022 12:00 AM THERAPEUTIC EXERCISES Reviewe d 02/04/2022 12:00 AM THERAPEUTIC ACTIVITIES Review ed 02/04/2022 12:00 AM HOT OR COLD PACKS THERAPY Rev iewed 02/04/2022 12:00 AM Pain Assessment docu mented as positive using a standardized tool AND a follow-up plan is documented. Reviewed 03/03/2022 12:00 AM THERAPEUTIC EXERCISES Reviewed 03/03/2022 12:00 AM HOT OR COLD PACKS THERAPY Revi ewed 03/03/2022 12:00 AM Pain Assessment docu mented as positive using a standardized tool AND a follow-up plan is documented. Reviewed 03/10/2022 12:00 AM THERAPEUTIC EXERCISES Reviewe d 03/10/2022 12:00 AM HOT OR COLD PACKS THERAPY Rev iewed 03/10/2022 12:00 AM Pain Assessment docu mented as positive using a standardized tool AND a follow-up plan is documented. Reviewed History of Past Illness Name Date of Onset Comments Diabetes - Phreesia 02/02 Acute bilateral low back pain 03/03/2022 Acute neck pain 06/20/2022 Arthralgia, cervical spine Feb 02 2022 10:36AM Acute bilateral low back pain Feb 03 2022 1:03PM Arthralgia of neck Feb 16 2022 9:01AM Acute bilateral low back pain Mar 03 2022 10:07AM Acute bilateral low back pain Mar 10 2022 1:16PM Acute bilateral low back pain Jun 20 2022 8:00PM Acute neck pain Jun 20 2022 8:00PM Payers Insurance Name Company Name Plan Name Plan Number Policy Number Policy Group Number Start Date [facility] [employer] [facility] [employer] [facility] [id number] January [employer] CIGNA [id number] 1 N/A History of Encounters Visit Date Visit Type Provider 03/10/2022 Physical Therapy/Occupational Summer Weston RPT 03/03/2022 Physical Therapy/Occupational Th Latanya Cárdenas RPT 02/04/2022 Physical Therapy/Occupational Anali Chávez RPT 02/03/2022 Physical Therapy/Occupational Anali Lamb IV RPT 02/02/2022 Physical Therapy/Occupational Anali Chávez RPT
[2022-12-30 10:12] VITALS: BP 142/88; PULSE 72; RESP 16; TEMP 36.6; O2SAT 100
[2022-12-30 10:14] LABS: Glucose, Whole Blood 97 mg/dL (60-115)
--- NOTE | 2022-12-30 10:58 | MHC.SHP ---
Pre-Procedural Eval Section A Date of Service: 12/30/22 Section B Chief Complaint: Diverticulosis of intestine, part unspecified Details of Present Illness: Medical History Chronic back pain Diabetes History of paresthesia Hypertension Leukocytosis Uncontrolled type 2 diabetes mellitus with hyperglycemia Surgical History Hx of colonoscopy No pertinent past surgical history Allergies: Allergies Allergy/AdvReac Type Severity Reaction Status Date / Time LISNOPRIL Allergy Mild Rash Uncoded 12/16/22 20:24 Review of Systems Review of Systems Comment: Ten point ROS negative Exam Exam Comment: Gen appear: No acute distress HEENT: no icterus Chest: No overt resp distress Abd: soft, nontender, nondistended Psych: Stable affect, answering questions appropriately Neuro: A/Ox3 noted to move all extremities spontaneously Ext: no peripheral edema Plan Diagnosis/Plan: Unchanged I have reviewed the history and physical and performed a pertinent physical examination on my patient. No changes have occurred unless specified. Time Spent With Patient Time: Total time managing care of this patient today ____ minutes.
--- NOTE | 2022-12-30 10:59 | P.OP_ITS ---
Operative Note Operative Note Date of Service: 12/30/22 Narrative: Procedure: Colonoscopy Indication: History of diverticulitis Endoscopist: Natalia Chapman MD Anesthesia Provider: Jan Naranjo MD Anesthesia type: MAC Instrument: Olympus [id number]-[id number] Consent: Indication, risks vs benefits, and alternatives were discussed with the patient who gave written informed consent to proceed. EKG, pulse, pulse oximetry and blood pressure were monitored throughout the procedure. Please see anesthesia flowsheet. Procedure: The patient was brought to the procedure room and placed in the left lateral decubitus position. IV medications were administered by the anesthesia provider in attendance. A digital rectal exam was performed which was normal. Distal attachment cap was affixed to the tip of the colonoscope which was then inserted through the anus and advanced through the colon to the cecum at 75 c m,and terminal ileum. Mucosa was carefully examined under high definition white light as the instrument was slowly withdrawn in a retrograde panoramic fashion. Retroflexion was performed in rectum. The procedure was somewhat difficult due to looping sigmoid colon and pressure was required to intubate the cecum. There were no immediate obvious complications. The quality of the prep was BBPS: 2+2+2 = adequate Withdrawal time 13 minutes. Limitations: No limitations. Findings: Mucosa: Normal to cecum and terminal ileum. Protruding lesions: * 1 sessile polyp of size 2mm in the cecum. Cold forceps polypectomy was performed. The polyp was completely removed and retrieved. * Medium internal hemorrhoids without stigmata of recent bleeding. Excavated lesions: * Severe diverticulosis of whole colon L>R. Impression: 1. Normal colon and terminal ileum mucosa 2. Total of 1 polyp removed 3. Diverticulosis 4. Internal hemorrhoids Recommendations: - Follow path results. - Repeat colonoscopy in 5 years due to prep.
[2022-12-30 11:45] VITALS: BP 127/76; PULSE 76; RESP 18; TEMP 36.3; O2SAT 100
[2022-12-30 12:00] VITALS: BP 123/85; PULSE 76; RESP 18; TEMP 36.5; O2SAT 100
== END 2022-12-30 12:58 | disposition home or self-care (01) ==
PROVIDERS: PCP Internal Medicine; Visit Provider Internal Medicine
PROC: 0DJD8ZZ Inspection of Lower Intestinal Tract, Via Natural or Artificial Opening Endoscopic (ICD-10-PCS; CPT 45378; principal; 2022-12-30 11:00)
DX: D12.0 Benign neoplasm of cecum (principal); K57.30 Diverticulosis of large intestine without perforation or abscess without bleeding; K56.2 Volvulus; K64.8 Other hemorrhoids; Z86.010 Personal history of colon polyps; E11.9 Type 2 diabetes mellitus without complications; I10 Essential (primary) hypertension; Z87.891 Personal history of nicotine dependence; Z79.84 Long term (current) use of oral hypoglycemic drugs; Z79.899 Other long term (current) drug therapy; Z79.82 Long term (current) use of aspirin
CPT/HCPCS: 45380; 82947; 88305

== ENCOUNTER → 2022-12-30 08:57 | Outpatient (BNV) | payer OTHER, SELFPAY | PROVIDERS: PCP Internal Medicine; Visit Provider Internal Medicine | DX: K57.92 Diverticulitis of intestine, part unspecified, without perforation or abscess without bleeding (principal); D12.0 Benign neoplasm of cecum; K64.8 Other hemorrhoids | CPT/HCPCS: 45380 ==

== ENCOUNTER 2023-01-05 14:46 | Outpatient (REF) | payer OTHER, SELFPAY ==
[2023-01-05 16:56] LABS: Urine Cytology See Pathology rpt
== END 2023-01-05 14:47 | disposition home or self-care (01) ==
LOC: HO.LNP 14:46
PROVIDERS: PCP Internal Medicine; Visit Provider Nurse Practitioner Family
DX: R33.9 Retention of urine, unspecified (principal); N32.89 Other specified disorders of bladder; R39.9 Unspecified symptoms and signs involving the genitourinary system
CPT/HCPCS: 51798; 81003; 88112

== ENCOUNTER 2023-01-05 14:46 | Outpatient (AMB) | payer OTHER, SELFPAY ==
--- NOTE | 2023-01-05 14:47 | A.OFFVIS_ITS ---
Intake Intake Visit Reasons: 2w/PSA(set) Intake Note: Patient presents for follow up PSA/urinary retention (psa 0.46) Urology Medications: tamsulosin Blood Thinner: aspirin PVR: 66ml's Community Outreach Specialist Required: No Accompanied by: Self / Same As Patient Allergies LISNOPRIL Allergy (Mild, Uncoded 01/05/23 15:23) Rash Medication List - Last Reconciled 01/05/23 by HARLEEN Brown- aspirin 81 mg PO DAILY blood sugar diagnostic (FreeStyle Lite Strips) As directed blood-glucose meter (FreeStyle Lite Meter kit) As directed once a day flash glucose scanning reader (FreeStyle Norma 2 [place]) As directed flash glucose sensor (FreeStyle Norma 2 Sensor kit) DIRECTED TO TEST BLOOD SUGAR DIRECTED hydrocodone bitartrate ER (Hysingla ER) 30 mg PO BEDTIME lancets (FreeStyle Lancets) As directed once a day losartan 100 mg PO DAILY metformin ER 1,000 mg PO BID pen needle, diabetic (BD Latonya 2nd Gen Pen Needle) As directed once a week polyethylene glycol 3350 17 grams PO DAILY pregabalin (Lyrica) 300 mg PO DAILY rosuvastatin 20 mg PO BEDTIME sennosides-docusate sodium 8.6-50 mg (Stimulant Laxative Plus) 1 tab-cap PO BEDTIME tamsulosin 0.4 mg PO BEDTIME tirzepatide (Mounjaro) 7.5 mg (0.5 mL) subcut QWEEK varenicline mg PO HPI HPI Comments History of Present Illness Details Paolo is a very pleasant 57-year-old male patient of Dr. Serra. He has a past medical history of chronic back pain, diabetes, and hypertension. He presents to the office today for follow-up of his urinary retention. When asked patient reports to be doing and feeling well. Recent PSA results reviewed with the patient today. 12/20--0.5. Recent workup has included retroperitoneal ultrasound noting bilateral kidneys with no calculi, lesions, and or hydronephrosis noted. The bladder wall thickness of 0.7 cm, however, bladder only moderately distended, limiting evaluation. Mild diffuse irregularity/trabeculations of the bladder wall. Enlarged prostate, volume approximately 43 mL. When asked he reports compliance with 0.4 mg of Flomax daily. He reports noting significant improvement in lower urinary tract symptoms since being on flomax daily. He denies having had any issues with his urination. Discussed at length potential causes and affects of urinary retention. Discussed bladder wall thickness and enlarged prostate. He reports noting feelings of incomplete bladder emptying, weak stream, and urinary urgency and frequency to have improved. He otherwise denies incontinence, nocturia, hematuria, dysuria, foul smelling urine, changes to urinary stream, flank pain, fever, and or chills. In office urinalysis results reviewed with the patient today. Microscopic hematuria noted. Patient does endorse to a longstanding history of nicotine dependence. Discussed further microscopic hematuria workup with CT urogram, urine cytology, and in office cystoscopy. Discussed at length potential causes of microscopic hematuria. Discussed risks and benefits of further workup versus surveillance monitoring. PVR 66ml's. [facility] Medical History History of paresthesia Chronic back pain Leukocytosis Uncontrolled type 2 diabetes mellitus with hyperglycemia Hypertension Diabetes Surgical History Hx of colonoscopy No pertinent past surgical history Family History Father Diabetes Mother Osteoporosis Social History Household Members: Spouse Household Members Other:: Housing: House Do you presently have visiting nurse or other home services: No Alcohol intake: never Patient Tobacco Use Status: Former Tobacco user Quit Date: 2 WEEKS AGO, ON CHANTIX Tobacco use type: Cigarette Second Hand Smoke Exposure: No Substance Use Type: Opiates service: No Current occupational status: employed 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, 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 Review of Systems Const Reports as per HPI Eyes Reports no additional complaints ENT Reports no additional complaints Card Reports as per HPI Resp Reports no additional complaints GI Reports no additional complaints Reports as per HPI Neuro Reports no additional complaints Endo Reports as per HPI Ji/Lymph Reports no additional complaints Aller/Immun Reports no additional complaints Physical Exam Const General: cooperative, healthy appearing, comfortable, no acute distress, well developed, alert and awake Orientation/consciousness: patient oriented x3 Limitations: ambulation with cane HEENT Head: Yes normal to inspection, Yes normocephalic and Yes atraumatic Ears: hearing grossly normal bilaterally Eyes General: appearance normal, both eyes and all related structures Neck Neck: Yes normal visual inspection and Yes trachea midline Chest Chest palpation & inspection: normal inspection of the chest Resp Effort & Inspection: normal respiratory effort and able to speak in complete sentences Cardio Rate: regular rate GI Inspection: Yes normal to inspection General: Yes no CVA tenderness Back/Spine/Pelvis Back: no CVA tenderness Skin General skin exam: no rashes or lesions noted Neuro General: patient oriented x3 Extrem General: Yes normal to inspection Psych Appearance: grossly normal and well kempt Mental Status: mental status grossly normal Speech and movement: Normal speech and movement present and Clear speech present Affect: normal affect Attitude: cooperative Thought process: Normal thought process present Thought content: Normal thought content present Insight: Fair insight present (Psych) Judgement: Fair judgement present (Psych) Office Procedures Post Void Residual Post Residual Void Post Void Residual (PVR): 66 [id number]-[id number] Void Residual by ultrasound Results AMB Urinalysis, Automated UA Leukoctes 0 Ghada/uL Last Edit by [email or web address] on 01/05/23 15:12 UA Nitrite Negative Last Edit by [email or web address] on 01/05/23 15:12 UA Urobilinogen 0.2 mg/dL Last Edit by [email or web address] on 01/05/23 15:12 UA Protein 0 mg/dL Last Edit by [email or web address] on 01/05/23 15:12 UA pH 6.0 Last Edit by [email or web address] on 01/05/23 15:12 UA Blood 25 Kade/uL Last Edit by [email or web address] on 01/05/23 15:12 UA Specific Watts 1.030 Last Edit by [email or web address] on 01/05/23 15:12 UA Ketone Negative Last Edit by [email or web address] on 01/05/23 15:12 UA Bilirubin 0 mg/dL Last Edit by [email or web address] on 01/05/23 15:12 UA Glucose 0 mg/dL Last Edit by [email or web address] on 01/05/23 15:12 Results Reviewed Results Reviewed: Laboratory Last Values Urine pH (Auto) 6.0 01/05/23 14:49 Specific Watts (Auto) 1.030 01/05/23 14:49 Urine Protein (Auto) 0 mg/dL 01/05/23 14:49 Glucose (UA)(Auto) 0 mg/dL 01/05/23 14:49 Urine Ketones (Auto) Negative 01/05/23 14:49 Urine Blood (Auto) 25 Kade/uL 01/05/23 14:49 Urine Nitrite (Auto) Negative 01/05/23 14:49 Urine Bilirubin (Auto) 0 mg/dL 01/05/23 14:49 Urine Urobilinogen (Auto) 0.2 mg/dL 01/05/23 14:49 Leukocyte Esterase (Auto) 0 Ghada/uL 01/05/23 14:49 Assessment & Plan Assessment & Plan (1) Bladder trabeculation: Code(s): N32.89 - Other specified disorders of bladder (2) Bladder wall thickening: Code(s): N32.89 - Other specified disorders of bladder (3) Urinary retention: Code(s): R33.9 - Retention of urine, unspecified (4) Lower urinary tract symptoms: Code(s): R39.9 - Unspecified symptoms and signs involving the genitourinary system (5) Hematuria: Code(s): R31.9 - Hematuria, unspecified (6) Nicotine dependence: Code(s): F17.200 - Nicotine dependence, unspecified, uncomplicated Plan In office urinalysis results reviewed with the patient today; as noted above; will send for urine cytology. Discussed at length potential causes of microscopic hematuria Discussed further microscopic hematuria with CT, urine cytology, and in office cystoscopy; in the setting of nicotine dependence Discussed in office cystoscopy given recent urinary retention; however, patient declines at this time. Patient reports be happy with current voiding parameters on 0.4 mg of Flomax daily; will continue; refills provided. PVR 66 mL. Patient denies any bothersome urinary issues or concerns at this time. Recent PSA results reviewed with the patient today; as noted above. Follow-up in 6 months with PVR; or sooner with any issues, concerns, and or questions. Orders: Orders AMB Post Void Residual by ultrasound Today R33.9 - Retention of urine, unspecified AMB Urinalysis Automated Today Z13.9 - Encounter for screening, unspecified Urine Cytology Today R33.9 - Retention of urine, unspecified Medications: Changed From tamsulosin 0.4 mg PO BEDTIME 30 caps 0RF To tamsulosin 0.4 mg PO BEDTIME 90 days 90 caps 3RF Patient Instructions: The patient had an opportunity to ask questions regarding the treatment plan. All questions were answered. Physical exam, labs, and imaging were discussed and reviewed in detail. As well as risks, benefits, and discussion of treatment choices. No major barriers to understanding were identified. The patient expressed understanding and agreement with the above treatment plan. The patient was made aware they should contact our office by phone for worsening of their current condition, the appearance of new symptoms, or with any questions or concerns. Compliance is encouraged with any medications and follow up testing that is ordered. It is a privilege to be allowed the opportunity to participate in? your urological care.? Again, if you have any questions or concerns If you have any questions or concerns please do not hesitate to contact me. The office is [phone]. This note is constructed using voice recognition software. While every effort has been made to ensure accuracy enforcement officer errors may have been included. Yours sincerely, JANET Brown Coding Level of Care Code Est Pt Level 3 (61491) Diagnoses Bladder trabeculation N32.89 Bladder wall thickening N32.89 Urinary retention R33.9 Lower urinary tract symptoms R39.9 Hematuria R31.9 Nicotine dependence F17.200 CPT Codes Post Residual Void - PVR CPT Code: 72742-Vada Void Residual by ultrasound ([id number])
== END 2023-01-05 15:20 | disposition home or self-care (01) ==
PROVIDERS: PCP Internal Medicine; Visit Provider Nurse Practitioner Family
DX: N32.89 Other specified disorders of bladder (principal); R33.9 Retention of urine, unspecified; R39.9 Unspecified symptoms and signs involving the genitourinary system; R31.9 Hematuria, unspecified; F17.200 Nicotine dependence, unspecified, uncomplicated; Z13.9 Encounter for screening, unspecified
CPT/HCPCS: 99213

== ENCOUNTER 2023-01-13 13:47 | Outpatient (AMB) | payer OTHER, SELFPAY ==
--- NOTE | 2023-01-13 13:53 | MHC.OFFVIS ---
Intake Vital Signs 01/13/23 13:59 Height 5 ft 10 in Intake Visit Reasons: OV - right shoulder injection Intake Note: Paolo caruso 56 year old male presents today for a follow up of right shoulder, last injection on 10/11/22. Patient reports last injection provided him relief and would like to repeat injection. States left shoulder pain for about 2-3 months, he would also like to discuss injection in left shoulder. Allergies LISNOPRIL Allergy (Mild, Uncoded 01/13/23 13:53) Rash HPI OV - right shoulder injection HPI Details 57-year-old male who returns to the office today for a follow-up of right shoulder pain. He continues to have pain in his right shoulder and he also c/o pain in his left shoulder for about 3 months now. He had his last right shoulder injection on 10/11/22 which provided him relief. He would like to repeat the injection and would like to discuss about having left shoulder injection. [facility] Medical History History of paresthesia Chronic back pain Leukocytosis Uncontrolled type 2 diabetes mellitus with hyperglycemia Hypertension Diabetes Surgical History Hx of colonoscopy No pertinent past surgical history Family History Father Diabetes Mother Osteoporosis Social History Household Members: Spouse Household Members Other:: Housing: House Do you presently have visiting nurse or other home services: No Alcohol intake: never Patient Tobacco Use Status: Former Tobacco user Quit Date: 2 WEEKS AGO, ON CHANTIX Tobacco use type: Cigarette Second Hand Smoke Exposure: No Substance Use Type: Opiates service: No Current occupational status: employed 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 Tenderness over the bicipital groove and along the deltoid region of the shoulder. FF to 175, ER to 90, IR to S1. 5/5 RTC strength, negative carpenter, cross body abduction. NVI. Office Procedures Joint Injection/Drain Joint Injection/Drain Primary Site: right shoulder Prep: site was prepped using aseptic technique, ethochloride spray was applied and injection warnings given Injected: 40 mg of, DepoMedrol, with 8 mL of, 1% plain lidocaine and in the subcromial space Approach Used: posterolateral Procedure: The patient tolerated the procedure well and there was some relief with the local anesthesia Coding 41309 - Glenohumeral/Tronchanteric Bursa/Intraarticular Procedure code (CPT) selection complete Assessment & Plan Assessment & Plan (1) Rotator cuff tendonitis: Code(s): M75.80 - Other shoulder lesions, unspecified shoulder Qualifiers: Laterality: right Qualified Code(s): M75.81 - Other shoulder lesions, right shoulder (2) Acromioclavicular joint arthritis: Code(s): M19.019 - Primary osteoarthritis, unspecified shoulder Qualifiers: Laterality: right Qualified Code(s): M19.011 - Primary osteoarthritis, right shoulder Plan We discussed options today which include steroid injection. They did consent to move forward with the right shoulder injection, which was tolerated well. I recommended rest, ice and elevation and OTC anti-inflammatories PRN for discomfort. We also discussed their diabetes and the effect the steroid can have on their blood glucose levels; therefore, they will continue to monitor these very closely over the next 72 hours. If there are any concerns, they should report to the ED immediately, otherwise he will return in 2 weeks for a left shoulder steroid injection. Patient Instructions: Scribed for Jese Jarquin PA-C, by Paul Hewitt medical billing instructor, on 01/13/2023 at 1:45 PM EST. Jese Ramirez PA-C, have personally reviewed and agree with the information entered by the scribe. Coding Level of Care Code Est Pt Level 3 (57436) Diagnoses Tendinitis of right rotator cuff M75.81 Laterality: right Arthritis of right acromioclavicular joint M19.011 Laterality: right CPT Codes Coding - Joint 7: 72110 - Glenohumeral/Tronchanteric Bursa/Intraarticular ([id number])
== END 2023-01-13 14:17 | disposition home or self-care (01) ==
PROVIDERS: PCP Internal Medicine; Visit Provider Physician Assistant
DX: M75.81 Other shoulder lesions, right shoulder (principal); M19.011 Primary osteoarthritis, right shoulder
CPT/HCPCS: 20610; 99213

== ENCOUNTER → 2023-01-13 13:47 | Outpatient (BNVA) | payer OTHER, SELFPAY | PROVIDERS: PCP Internal Medicine; Visit Provider Physician Assistant | DX: M75.81 Other shoulder lesions, right shoulder (principal); M19.011 Primary osteoarthritis, right shoulder | CPT/HCPCS: 20610; J1020 ==

== ENCOUNTER 2023-01-24 14:58 | Outpatient (AMB) | payer OTHER, SELFPAY ==
--- NOTE | 2023-01-24 15:04 | MHC.OFFVIS ---
Intake Intake Visit Reasons: OV - Left shoulder injection Intake Note: Paolo a 57 year old male presents today for a left shoulder cortisone injection. Patient reports good relief with right shoulder injection. Allergies LISNOPRIL Allergy (Mild, Uncoded 01/24/23 15:15) Rash HPI OV - Left shoulder injection HPI Details 57-year-old male who returns to the office today for a left shoulder injection. He had a right shoulder injection in the past which provided him good relief. COUNTS INCLUDE 234 BEDS AT THE [facility] Medical History History of paresthesia Chronic back pain Leukocytosis Uncontrolled type 2 diabetes mellitus with hyperglycemia Hypertension Diabetes Surgical History Hx of colonoscopy No pertinent past surgical history Family History Father Diabetes Mother Osteoporosis Household Members: Spouse Household Members Other:: Housing: House Do you presently have visiting nurse or other home services: No Alcohol intake: never Patient Tobacco Use Status: Former Tobacco user Quit Date: 2 WEEKS AGO, ON [employer]ANTIX Tobacco use type: Cigarette Second Hand Smoke Exposure: No Substance Use Type: Opiates service: No Current occupational status: employed 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 Tenderness over the bicipital groove and along the deltoid region of the shoulder. Forward flexion to 175, external rotation to 90, internal rotation to S1. 5/5 RTC strength. Negative Viera and cross body abduction. NVI. Office Procedures Joint Injection/Drain Joint Injection/Drain Primary Site: left shoulder Prep: site was prepped using aseptic technique, ethochloride spray was applied and injection warnings given Injected: 40 mg of, DepoMedrol, with 8 mL of, 1% plain lidocaine and in the subcromial space Approach Used: posterolateral Procedure: The patient tolerated the procedure well and there was some relief with the local anesthesia Coding 52874 - Glenohumeral/Tronchanteric Bursa/Intraarticular Procedure code (CPT) selection complete Assessment & Plan Assessment & Plan (1) Rotator cuff tendonitis: Code(s): M75.80 - Other shoulder lesions, unspecified shoulder Qualifiers: Laterality: right Qualified Code(s): M75.81 - Other shoulder lesions, right shoulder (2) Acromioclavicular joint arthritis: Code(s): M19.019 - Primary osteoarthritis, unspecified shoulder Qualifiers: Laterality: right Qualified Code(s): M19.011 - Primary osteoarthritis, right shoulder Plan We discussed options today which include steroid injection. They did consent to move forward with the left shoulder injection, which was tolerated well. I recommended rest, ice and elevation and OTC anti-inflammatories PRN for discomfort. We also discussed their diabetes and the effect the steroid can have on their blood glucose levels; therefore, they will continue to monitor these very closely over the next 72 hours. If there are any concerns, they should report to the ED immediately. Patient Instructions: Scribed for Jese Jarquin PA-C, by Paul Hewitt medical health researcher, on 01/24/2023 at 3:15 PM EST. Jese Ramirez PA-C, have personally reviewed and agree with the information entered by the scribe. Coding Level of Care Code Est Pt Level 3 (71316) Diagnoses Tendinitis of right rotator cuff M75.81 Laterality: right Arthritis of right acromioclavicular joint M19.011 Laterality: right CPT Codes Coding - Joint 7: 14852 - Glenohumeral/Tronchanteric Bursa/Intraarticular ([id number])
== END 2023-01-24 15:15 | disposition home or self-care (01) ==
PROVIDERS: PCP Internal Medicine; Visit Provider Physician Assistant
DX: M75.81 Other shoulder lesions, right shoulder (principal); M19.011 Primary osteoarthritis, right shoulder
CPT/HCPCS: 20610

== ENCOUNTER → 2023-01-24 14:58 | Outpatient (BNVA) | payer OTHER, SELFPAY | PROVIDERS: PCP Internal Medicine; Visit Provider Physician Assistant | DX: M75.82 Other shoulder lesions, left shoulder (principal); M19.012 Primary osteoarthritis, left shoulder | CPT/HCPCS: 20610; J1020 ==

== ENCOUNTER 2023-03-17 15:31 | Outpatient (AMB) | payer OTHER, SELFPAY ==
--- NOTE | 2023-03-17 15:35 | A.OFFVIS_ITS ---
Intake Vital Signs 03/17/23 15:38 Height 5 ft 10 in Weight 244 lb 11.41 oz BMI 35.1 BP 130/82 Blood Pressure Location Rt brachial Position Sitting Pulse 76 Intake Visit Reasons: Post op colo/ PT Intake Note: Patient returns to in office visit today in follow up of colonoscopy. CC: Patient c/o back pains that he is unsure if is related to his diverticulitis. Patient c/o constipation and RLQ abdominal pain. Per patient he is taking double the dose of Linzess but still sometimes this does not works. He also reports acid reflux about once a week. Allergies lisinopril Allergy (Severe, Verified 03/17/23 15:42) Rash HPI Post op colo/ PT HPI Details Dr. Sofia a patient who asked to switch to me because I sees PMX Smoker Diabetes History of diverticulitis Tubular adenoma Hypertension Chronic low back pain AC joint arthritis/rotator cuff tendinitis * SURGICAL HISTORY Colonoscopy * ALLERGIES Lisinopril * [employer] LABS: Laboratory Tests 10/18/22 12/18/22 06:35 09:10 WBC 14.2 H RBC 4.31 L Hgb 11.6 L Hct 35.0 L Plt Count 299 D Estimated GFR > 60 Total Bilirubin 0.4 AST 16 ALT 13 Alkaline Phosphata se 55 TSH 0.89 Free T4 1.05 Laboratory Tests 05/11/20 09/27/20 02/19/22 20:35 08:00 07:33 WBC 13.1 H 15.8 H 12.4 H RBC Hgb Hct MCV MCH PT INR 04/09/22 04/09/22 04/09/22 14:16 14:16 14:16 WBC 19.2 H RBC Hgb Hct MCV MCH PT 13.2 H INR 1.1 10/16/22 10/16/22 10/16/22 22:31 22:31 22:31 WBC 21.6 H RBC 4.95 Hgb 13.5 L Hct 40.9 L MCV 82.6 MCH 27.3 PT INR 10/16/22 10/16/22 10/17/22 22:59 22:59 04:51 WBC 15.6 H RBC Hgb Hct MCV MCH PT 13.8 H INR 1.1 10/17/22 10/18/22 04:51 06:35 WBC RBC 3.86 L D Hgb 10.9 L Hct 32.6 L D MCV 84.5 81.2 MCH 28.[address] Sofia IS LAST NOTE: 56 y.o M with PMH of known diverticulosis who is presenting after a recent episode of diverticulitis. Pt presented to the ER in Mar with x1 week of LLQ and back pain with nausea. CT Abd/pel with L sided colon wall thickening and fat stranding suspicious for acute diverticulitis. Was discharged from ER on PO Augmentin. Currently no abd pain, N,V. No diarrhea. Constipated sometimes which is easily relieved with stool softeners. Most recent colo 04/2019 (Dr Hutchins): x2 tubular adenoma including a 10mm one. Assessment & Plan (1) Diverticulosis: Code(s): K57.90 - Diverticulosis of intestine, part unspecified, without perforation or abscess without bleeding (2) Personal history of colonic polyps: Code(s): Z86.010 - Personal history of colonic polyps Plan Reviewed with the pt that due to polyp >10 mm in 2019 as well as recent diverticulitis, meets the indication to have a diagnostic colonoscopy. This will be set up in the next 2-3 months. Split PEG prep instructions were reviewed with the patient and hand out provided as well. He was also advised to hold his GLP-1 that week to help with bowel clean out as these meds can cause delayed motility. He knows to discuss this with his automation qa analyst as well (has follow up next week). Follow up after colo. Medications: New peg 3350-electroly liz 236-22.74-6.74 -5.86 gram (Golyt israel) as per spl it prep instructio ns, until fecal ef fluent is clear 240 mL PO Q10M 4, 000 mL 0RF colonos copy COLONOSCOPY 12/30/22 Findings: Mucosa: Normal to cecum and terminal ileum. Protruding lesions: * 1 sessile polyp of size 2mm in the cecum. Cold forceps polypectomy was performed. The polyp was completely removed and retrieved. * Medium internal hemorrhoids without stigmata of recent bleeding. Excavated lesions: * Severe diverticulosis of whole colon L>R. Impression: 1. Normal colon and terminal ileum mucos a 2. Total of 1 polyp removed 3. Diverticulosis 4. Internal hemorrhoids Recommendations: - Follow path results. - Repeat colonoscopy in 5 years due to p rep. Received: 12/30/22 Diagnosis Colon, cecum, polypectomy: Sessile serrated polyp/lesion without cytologic dysplasia CORRESPONDENCE IT On 01/14/23 @ 11:11 Maxine Tinajero Wrote To MaggyMay patient's called who is established with you.she stated that you were willing to take on Paolo as your patient as it was discussed HER last visit with you. So I have added him to the schedule for 02/25/23 On 10/27/22 @ 15:21 Azucena Sawyer Wrote To MaggyMay (2) Called Pt to switch appt to Marli Winter and he stated that he would like to just continue with Dr. Chapman as she will be doing his procedure. On 10/27/22 @ 07:47 Jayde Winter Wrote To Azucena Sawyer He asked to be seen by me as I see his , Dr. Chapman was okay with this. On 10/26/22 @ 16:32 Azucena Sawyer Wrote To MaggyMay I'm sorry, I'm a little confused as this Pt has been seeing Dr. Chapman. He was seen yesterday by Dr. Chapman, and has upcoming f/u appt with her for 01/14. On 10/25/22 @ 14:08 Natalia Chapman Wrote To Azucena Sawyer Natalia Chapman removed from item. On 10/25/22 @ 13:45 Shila Mcgowan Wrote To Azucena Sawyer (2) [facility] removed from item. On 10/25/22 @ 13:33 Wrote To Azucena Sawyer (3) Ok, thanks! V, does he have an appt with me yet? On 10/25/22 @ 09:41 McgowanShila Wrote To pt sched, has prep meds already, mailed instructions. [facility] removed from item. On 10/25/22 @ 09:24 Natalia Chapman Wrote To (2) - pt was in ER with another episode of diverticulitis last week. Pls move the colo to 8 weeks out i.e in May,. On 08/18/22 @ 11:51 Natalia Chapman Wrote To [facility] By Oct. Split PEG prep instructions. Pt advised to HOLD his mounjaro that week to help with colon clean out. Thank you. TODAYS VISIT He is having pain in the RLQ that radiates to his back like a backache. He has been hospitalized 3 times with tics, the first time he had pain on left side but then it would on the right side. CT shows always inflammation of the sigmoid, so this could be his pattern of radiation. He had 1 other attack of diverticulitis but that was back in 2014. We did discuss the possibility of surgery but I would not take this route until we are sure we have his constipation controlled. He admits that he would only move his bowels every 3 days or so and even on the Linzess 145 micro g he would take it 3 times a day (and then run out of it) in order to move his bowels every other day. He also has been taking MiraLax in the morning. Clearly this is not enough. He also does have some contributing factors including chronic oxycodone therapy, gabapentin therapy and Mounjaro therapy. He was unaware of his anemia which is somewhat unusual for a gentleman. We may want to consider an upper endoscopy depending on whether not this resolves and I would like to get a fit test today to see if he is passing any blood in the GI system. He says that he eats chicken and fish mostly not a big red meat eater and not a lot right now of leafy greens. So this could be dietary. He has not taking any oral iron replacement therapy. He was unaware of his anemia as no one has discussed it with him which I find I would since anemia is uncommon in a male of his age. He does seem to have chronic leukocytosis. This is another thing that has never been discussed with him, it is possible that it just appears to be chronic because he has come in to our facility only when he had an active diverticulitis infection, but I think that we should repeat the CBC and find out if this is something that needs further investigation. He has a smoker so this could be a contributing factor to chronic leukocytosis if we think this is a chronic issue. Obviously I am going to repeat a CBC and a Chem panel and do some fit testing. If his fit is positive we may need to consider if he needs an upper endoscopy for the anemia. I think that the secret to keeping him from having recurrent diverticulitis attacks will be to control the constipation and I am also encouraging him to start a fiber supplement. However, he does have severe diverticulosis throughout the entire colon even though it appears that the areas affected were in the sigmoid in each of his past few cases. We review his colonoscopy and he is agreeable to a 5 year repeat. The procedure was well tolerated. The results were explained and the patient is agreeable to the follow-up interval as stated. Education was provided to tell any 1st degree relatives about their findings to be sure that they are screened by age 45. Educated that they will be put on a recall list when it is time for their repeat scope but should they move out of state or away from the hospital they will need to remember along with their primary to repeat the procedure in a timely fashion to avoid any adverse complications. Return office visit in 3 weeks to titrate his constipation therapy. [facility] Medical History (Updated 03/17/23 @ 16:57 by CRYSTAL Thakkar) Hematuria Lower urinary tract symptoms Abdominal pain Metabolic encephalopathy History of sepsis Generalized weakness Leukocytosis Abdominal pain, acute Personal history of colonic polyps Diverticulosis History of paresthesia Chronic back pain Uncontrolled type 2 diabetes mellitus with hyperglycemia Hypertension Diabetes Surgical History Hx of colonoscopy No pertinent past surgical history Family History Father Diabetes Mother Osteoporosis Social History Household Members: Spouse Household Members Other:: Housing: House Do you presently have visiting nurse or other home services: No Alcohol intake: never Patient Tobacco Use Status: Former Tobacco user Quit Date: 2 WEEKS AGO, ON [place] Tobacco use type: Cigarette Second Hand Smoke Exposure: No Substance Use Type: Opiates service: No Current occupational status: employed 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, 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 Review of Systems Const Denies fatigue, Denies fever(s), Denies night sweats, Denies poor appetite and Reports weight loss (Secondary to diabetic therapy) ENT Reports Normal hearing present, Denies dysphagia, Denies odynophagia, Denies throat swelling and Denies tongue swelling Card Reports no additional complaints Resp Reports no additional complaints GI Reports abdominal pain, Denies melena, Reports bloating, Denies hematochezia, Reports constipation, Reports GI cramping, Denies dysphagia, Denies excessive flatus, Denies early satiety, Denies heartburn, Denies diarrhea, Denies nausea, Denies odynophagia, Denies vomiting and Denies hematemesis Musc Reports back pain Skin/Breast Denies pruritus, Denies lesions, Denies rash and Denies jaundice Neuro Reports Normal hearing present and Denies Abnormal speech present Endo Denies fatigue Aller/Immun Denies throat swelling and Denies tongue swelling Physical Exam Vital Signs: Last Vital Signs Pulse 76 03/17/23 15:38 BP 130/82 03/17/23 15:38 BMI result Body Mass Index 35.1 Const General: cooperative, no acute distress, well developed and well groomed Nutritional Appearance: well nourished and obese morbidly obese Orientation/consciousness: oriented to person, oriented to place and oriented to time Limitations: No language barrier HEENT Head: Yes normocephalic and Yes atraumatic Eyes General: appearance normal, both eyes and all related structures Pupils: Equal, round and reactive pupils present Neck Neck: Yes normal visual inspection and Yes no lymphadenopathy Thyroid: Thyroid normal Resp Effort & Inspection: normal respiratory effort and able to speak in complete sentences Auscultation: clear to auscultation bilaterally Cardio Rate: regular rate Rhythm: regular rhythm Heart sounds: Normal, physiologic split S2 sound present Peripheral pulses: radial pulses present and posterior tibial pulses present GI Inspection: No distended, Yes Abdominal panniculus present, Yes obesity and Yes striae Palpation (GI): Soft to palpation, Tenderness to palpation present (GI) in the LLQ, in the RLQ and periumbilically, no guarding, not rigid and No hepatosplenomegaly present Percussion: Yes normal to percussion Auscultation: normal bowel sounds Rectal Exam - Male: Yes deferred Skin General skin exam: no rashes or lesions noted, turgor normal, skin not dry, no jaundice, No spider nevi and no striae Rashes: no rashes Nails: normal Neuro General: oriented to person, oriented to place and oriented to time Cranial nerves: Yes Equal, round and reactive pupils present and Yes Normal hearing present Speech: No Abnormal speech present Extrem General: Yes normal to inspection, No clubbing, No cyanosis and No edema Psych Appearance: grossly normal and well kempt Mental Status: mental status grossly normal Speech and movement: Normal speech and movement present Affect: normal affect Attitude: cooperative Thought process: Normal thought process present and not confabulating Thought content: Normal thought content present Insight: Limited insight present (Psych) Judgement: Limited judgement present (Psych) Results Reviewed Results Reviewed: Laboratory Tests 10/18/22 12/18/22 06:35 09:10 WBC 14.2 H RBC 4.31 L Hgb 11.6 L Hct 35.0 L Plt Count 299 D Estimated GFR > 60 Total Bilirubin 0.4 AST 16 ALT 13 Alkaline Phosphatase 55 TSH 0.89 Free T4 1.05 Laboratory Tests 05/11/20 09/27/20 02/19/22 20:35 08:00 07:33 WBC 13.1 H 15.8 H 12.4 H RBC Hgb Hct MCV MCH PT INR 04/09/22 04/09/22 04/09/22 14:16 14:16 14:16 WBC 19.2 H RBC Hgb Hct MCV MCH PT 13.2 H INR 1.1 10/16/22 10/16/22 10/16/22 22:31 22:31 22:31 WBC 21.6 H RBC 4.95 Hgb 13.5 L Hct 40.9 L MCV 82.6 MCH 27.3 PT INR 10/16/22 10/16/22 10/17/22 22:59 22:59 04:51 WBC 15.6 H RBC Hgb Hct MCV MCH PT 13.8 H INR 1.1 10/17/22 10/18/22 04:51 06:35 WBC RBC 3.86 L D Hgb 10.9 L Hct 32.6 L D MCV 84.5 81.2 MCH 28.2 26.9 L PT INR COLONOSCOPY 12/30/22 Findings: Mucosa: Normal to cecum and terminal ileum. Protruding lesions: * 1 sessile polyp of size 2mm in the cecum. Cold forceps polypectomy was performed. The polyp was completely removed and retrieved. * Medium internal hemorrhoids without stigmata of recent bleeding. Excavated lesions: * Severe diverticulosis of whole colon L>R. Impression: 1. Normal colon and terminal ileum mucosa 2. Total of 1 polyp removed 3. Diverticulosis 4. Internal hemorrhoids Recommendations: - Follow path results. - Repeat colonoscopy in 5 years due to prep. Received: 12/30/22 Diagnosis Colon, cecum, polypectomy: Sessile serrated polyp/lesion without cytologic dysplasia Assessment & Plan Assessment & Plan (1) Chronic idiopathic constipation: Code(s): K59.04 - Chronic idiopathic constipation (2) Diverticulitis: Code(s): K57.92 - Diverticulitis of intestine, part unspecified, without perforation or abscess without bleeding (3) Anemia: Code(s): D64.9 - Anemia, unspecified (4) Leukocytosis: Code(s): D72.829 - Elevated white blood cell count, unspecified (5) Nicotine dependence: Code(s): F17.200 - Nicotine dependence, unspecified, uncomplicated Plan He is having pain in the RLQ that radiates to his back like a backache. He has been hospitalized 3 times with tics, the first time he had pain on left side but then it would on the right side. CT shows always inflammation of the sigmoid, so this could be his pattern of radiation. He had 1 other attack of diverticulitis but that was back in 2015. We did discuss the possibility of surgery but I would not take this route until we are sure we have his constipation controlled. He admits that he would only move his bowels every 3 days or so and even on the Linzess 145 micro g he would take it 3 times a day (and then run out of it) in order to move his bowels every other day. He also has been taking MiraLax in the morning. Clearly this is not enough. He also does have some contributing factors including chronic oxycodone therapy, gabapentin therapy and Mounjaro therapy. He was unaware of his anemia which is somewhat unusual for a gentleman. We may want to consider an upper endoscopy depending on whether not this resolves and I would like to get a fit test today to see if he is passing any blood in the GI system. He says that he eats chicken and fish mostly not a big red meat eater and not a lot right now of leafy greens. So this could be dietary. He has not taking any oral iron replacement therapy. He was unaware of his anemia as no one has discussed it with him which I find I would since anemia is uncommon in a male of his age. He does seem to have chronic leukocytosis. This is another thing that has never been discussed with him, it is possible that it just appears to be chronic because he has come in to our facility only when he had an active diverticulitis infection, but I think that we should repeat the CBC and find out if this is something that needs further investigation. He has a smoker so this could be a contributing factor to chronic leukocytosis if we think this is a chronic issue. Obviously I am going to repeat a CBC and a Chem panel and do some fit testing. If his fit is positive we may need to consider if he needs an upper endoscopy for the anemia. I think that the secret to keeping him from having recurrent diverticulitis attacks will be to control the constipation and I am also encouraging him to start a fiber supplement. However, he does have severe diverticulosis throughout the entire colon even though it appears that the areas affected were in the sigmoid in each of his past few cases. We review his colonoscopy and he is agreeable to a 5 year repeat. The procedure was well tolerated. The results were explained and the patient is agreeable to the follow-up interval as stated. Education was provided to tell any 1st degree relatives about their findings to be sure that they are screened by age 45. Educated that they will be put on a recall list when it is time for their repeat scope but should they move out of state or away from the hospital they will need to remember along with their primary to repeat the procedure in a timely fashion to avoid any adverse complications. Return office visit in 3 weeks to titrate his constipation therapy. Orders: Orders TSH reflex Free T4 Today D64.9 - Anemia, unspecified, D72.829 - Elevated white blood cell count, unspecified, F17.200 - Nicotine dependence, unspecified, uncomplicated, K57.92 - Diverticulitis of intestine, part unspecified, without perforation or abscess without bleeding, K59.04 - Chronic idiopathic constipation Complete Blood Count Auto Diff Today D64.9 - Anemia, unspecified, D72.829 - Elevated white blood cell count, unspecified, F17.200 - Nicotine dependence, unspecified, uncomplicated, K57.92 - Diverticulitis of intestine, part unspecified, without perforation or abscess without bleeding, K59.04 - Chronic idiopathic constipation Ferritin Today D64.9 - Anemia, unspecified, D72.829 - Elevated white blood cell count, unspecified, F17.200 - Nicotine dependence, unspecified, uncomplicated, K57.92 - Diverticulitis of intestine, part unspecified, without perforation or abscess without bleeding, K59.04 - Chronic idiopathic constipation FITS Today D64.9 - Anemia, unspecified, D72.829 - Elevated white blood cell count, unspecified, F17.200 - Nicotine dependence, unspecified, uncomplicated, K57.92 - Diverticulitis of intestine, part unspecified, without perforation or abscess without bleeding, K59.04 - Chronic idiopathic constipation Comprehensive Met. Panel Today D64.9 - Anemia, unspecified, D72.829 - Elevated white blood cell count, unspecified, F17.200 - Nicotine dependence, unspecified, uncomplicated, K57.92 - Diverticulitis of intestine, part unspecified, without perforation or abscess without bleeding, K59.04 - Chronic idiopathic constipation Medications: New linaclotide (Linzess) 290 mcg PO QAM 30 days 30 caps 6RF K57.92 - Diverticulitis of intestine, part unspecified, without perforation or abscess without bleeding, K59.04 - Chronic idiopathic constipation bisacodyl (Dulcolax (bisacodyl)) 10 mg (2 x 5 mg) PO BEDTIME 30 days 60 tabs 3RF K59.04 - Chronic idiopathic constipation Refilled polyethylene glycol 3350 17 grams PO DAILY 30 ea 6RF Discontinued linaclotide Discontinued Reason: Doctor's Order 145 mcg PO DAILY 90 caps 1RF Coding Level of Care Code Est Pt Level 4 (06046) Diagnoses Chronic idiopathic constipation K59.04 Diverticulitis K57.92 Anemia D64.9 Leukocytosis D72.829 Nicotine dependence F17.200 Time Spent (min) 40
[2023-03-17 15:38] VITALS: BP 130/82; PULSE 76; BMI 35.1
== END 2023-03-17 16:25 | disposition home or self-care (01) ==
PROVIDERS: PCP Internal Medicine; Visit Provider Nurse Practitioner
DX: K59.04 Chronic idiopathic constipation (principal); K57.92 Diverticulitis of intestine, part unspecified, without perforation or abscess without bleeding; D64.9 Anemia, unspecified; D72.829 Elevated white blood cell count, unspecified; F17.200 Nicotine dependence, unspecified, uncomplicated
CPT/HCPCS: 99214

== ENCOUNTER → 2023-03-17 15:31 | Outpatient (BNVA) | payer OTHER, SELFPAY | PROVIDERS: PCP Internal Medicine; Visit Provider Nurse Practitioner ==

== ENCOUNTER 2023-03-20 07:34 | Outpatient (REF) | payer OTHER, SELFPAY ==
[2023-03-24 08:28] LABS: FIT1 NEGATIVE (NEGATIVE)
[2023-03-24 08:29] LABS: FIT Int Ctl YES
== END 2023-03-20 07:35 | disposition home or self-care (01) ==
LOC: HO.LNP 07:34
PROVIDERS: Visit Provider Nurse Practitioner
DX: K57.92 Diverticulitis of intestine, part unspecified, without perforation or abscess without bleeding (principal); K59.04 Chronic idiopathic constipation; D64.9 Anemia, unspecified; D72.829 Elevated white blood cell count, unspecified
CPT/HCPCS: 82274

== ENCOUNTER 2023-04-02 08:26 | Outpatient (REF) | payer OTHER, SELFPAY ==
[2023-04-02 08:56] LABS: MANUAL DIFF FLAG NO
[2023-04-02 09:16] LABS: Basophils Absolute Auto 0.1 X10*3/uL (0.0-0.2); Basophils Percent Auto 0.9 % (0-2); Eosinophils Absolute Auto 0.7 X10*3/uL (0.0-0.4); Eosinophils Percent Auto 4.5 % (0-4); Hematocrit 42.8 % (42.0-52.0); Hemoglobin 14.3 g/dl (14.0-18.0); Imm Gran Abs Auto 0.05 X10*3/uL (0.00-0.03); Imm Gran Pct Auto 0.3 % (0.0-0.4); Lymphocytes Absolute Auto 3.7 X10*3/uL (1.2-4.9); Lymphocytes Percent Auto 24.5 % (20-40); Mean Corpuscular HGB Conc 33.4 g/dl (31.0-36.0); Mean Corpuscular Hemoglobin 27.7 pg (27.0-33.0); Mean Corpuscular Volume 82.8 fL (80.0-98.0); Mean Platelet Volume 10.8 fL (9.4-12.4); Monocytes Absolute Auto 1.1 X10*3/uL (0.1-1.2); Monocytes Percent Auto 7.3 % (2-11); Neutrophils Absolute Auto 9.6 x10*3/uL (2.0-8.3); Neutrophils Percent Auto 62.5 % (45-73); Platelet Count 235 X10*3/uL (160-400); Red Blood Count 5.17 X10*6/uL (4.60-5.80); Red Cell Distribution Width 15.1 % (11.0-16.0); White Blood Count 15.3 X10*3/uL (4.8-10.8)
[2023-04-02 10:05] LABS: Alanine Aminotransferase 10 U/L (0-40); Albumin Level 3.7 g/dL (3.5-5.0); Alkaline Phosphatase 69 U/L (39-117); Anion Gap 11 (12-20); Aspartate Amino Transferase 14 U/L (5-37); Bilirubin Total 0.3 mg/dL (0.0-1.0); Blood Urea Nitrogen 13 mg/dL (9-16); Calcium 9.8 mg/dL (8.4-10.2); Carbon Dioxide 27 mmol/L (22-29); Chloride 110 mmol/L (96-108); Cholesterol 104 mg/dL (<200); Estimated Glomerular Filt Rate > 60; Glucose Random 132 mg/dL (60-115); HDL Cholesterol 28 mg/dL (>40); LDL Cholesterol Calculated 53 mg/dL (<100); Potassium 4.1 mmol/L (3.3-5.1); Sodium 144 mmol/L (135-145); Total Protein 6.8 g/dL (6.5-8.0); Triglycerides 117 mg/dL (<150)
[2023-04-02 11:06] LABS: Creatinine Urine 239.31 mg/dL; Microalbum/Creatinine Ratio Ur 4.5 ug/mg cr (<30)
== END 2023-04-02 08:27 | disposition home or self-care (01) ==
LOC: HO.LAB 08:26
PROVIDERS: PCP Internal Medicine; Referring Provider Nurse Practitioner; Visit Provider Internal Medicine
DX: Z13.89 Encounter for screening for other disorder (principal)
CPT/HCPCS: 36415; 80053; 80061; 82043; 82570; 85025

== ENCOUNTER 2023-05-04 13:16 | Outpatient (AMB) | payer OTHER, SELFPAY ==
--- NOTE | 2023-05-04 13:28 | A.SPINEOV_ITS ---
Intake Intake Visit Reasons: Lumbar radiculopathy Intake Note: Mr. Gardner is here today c/o lower back pain with numbness in the legs. Medical Oncologist Required: No Allergies lisinopril Allergy (Severe, Verified 03/17/23 15:42) Rash Assessment & Plan Assessment & Plan (1) Lumbar degenerative disc disease: Code(s): M51.36 - Other intervertebral disc degeneration, lumbar region Plan Dear colleague Thank you for referring Paolo Gardner to the office today with a chief complaint of neck pain and low back pain. HPI: This 57-year-old male is having pain in his neck radiating to his shoulders and back pain that is mostly located on the left side around the SI joint area. He denies significant radiation down his arms or legs. 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 He tried physical therapy and multiple injections without results. He was scheduled to undergo a spinal cord stimulator but the insurance denied PMH: Diabetes Medications: Mounjaro, Oxy: 10 mg and pregabalin 300 mg Allergies: NKDA Social history: Employed. Smokes 1 pack a day. Physical Exam: Pleasant male. He points towards the low thoracic region on the left side for pain. SI joint provocative tests are negative. Straight leg raise is negative. Normal strength and sensation. No pathological reflexes. Radiological Studies: MRI of the cervical, thoracic and lumbar spine done at [facility] show multilevel cervical degenerative disc disease with multilevel foraminal stenosis and a relatively normal MRI of the lumbar spine with a left lateral disc protrusion at L3-4. Impression/Plan: This patient is suffering from cervicalgia and lumbago. There is signs of radiculopathy or myelopathy. Therefore I do not think he is a candidate for spinal surgery. I would advise an injection in the left SI joint if this was not done as of yet. Thank you for allowing me to participate in your patients care. total time spent was 40 minutes in counseling ,coordination of plan, personal review of imaging, surgical decision making and subsequent plan Fletcher Garcia MD, PhD Sp[facility] Fellowship Trained Neurosurgeon Director, [facility] Coding Level of Care Code New Pt Level 3 (28050) Diagnoses Lumbar degenerative disc disease M51.36
== END 2023-05-04 14:40 | disposition home or self-care (01) ==
PROVIDERS: PCP Internal Medicine; Referring Provider Physical Medicine & Rehabilitation; Visit Provider Neurological Surgery
DX: M51.36 Other intervertebral disc degeneration, lumbar region (principal)
CPT/HCPCS: 99203

== ENCOUNTER → 2023-05-04 13:16 | Outpatient (BNVA) | payer OTHER, SELFPAY | PROVIDERS: PCP Internal Medicine; Visit Provider Neurological Surgery ==

== ENCOUNTER 2023-05-05 15:06 | Outpatient (AMB) | payer OTHER, SELFPAY ==
[2023-05-05 15:20] VITALS: BP 120/72; PULSE 73; BMI 35.2
--- NOTE | 2023-05-05 15:20 | MHC.OFFVIS ---
Intake Vital Signs 05/05/23 15:20 Height 5 ft 10 in Weight 245 lb BMI 35.2 BP 120/72 Blood Pressure Location Lt brachial Position Sitting Pulse 73 Intake Visit Reasons: 3 week follow up Intake Note: Patient returns in 3 weeks follow up of labs. CC: Patient states that Linzess is not helping and last BM was 3 days ago. He states that when he is constipated he gets lower back pain. 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 Accompanied by: Self / Same As Patient Allergies lisinopril Allergy (Severe, Verified 05/05/23 15:38) Rash HPI 3 week follow up HPI Details Assessment & Plan (1) Chronic idiopathic constipation: Code(s): K59.04 - Chronic idiopathic constipation (2) Diverticulitis: Code(s): K57.92 - Diverticulitis of intestine, part unspecified, without perforation or abscess without bleeding (3) Anemia: Code(s): D64.9 - Anemia, unspecified (4) Leukocytosis: Code(s): D72.829 - Elevated white blood cell count, unspecified (5) Nicotine dependence: Code(s): F17.200 - Nicotine dependence, unspecified, uncomplicated Plan He is having pain in the RLQ that radiates to his back like a backache. He has been hospitalized 3 times with tics, the first time he had pain on left side but then it would on the right side. CT shows always inflammation of the sigmoid, so this could be his pattern of radiation. He had 1 other attack of diverticulitis but that was back in 2014. We did discuss the possibility of surgery but I would not take this route until we are sure we have his constipation controlled. He admits that he would only move his bowels every 3 days or so and even on the Linzess 145 micro g he would take it 3 times a day (and then run out of it) in order to move his bowels every other day. He also has been taking MiraLax in the morning. Clearly this is not enough. He also does have some contributing factors including chronic oxycodone therapy, gabapentin therapy and Mounjaro therapy. He was unaware of his anemia which is somewhat unusual for a gentleman. We may want to consider an upper endoscopy depending on whether not this resolves and I would like to get a fit test today to see if he is passing any blood in the GI system. He says that he eats chicken and fish mostly not a big red meat eater and not a lot right now of leafy greens. So this could be dietary. He has not taking any oral iron replacement therapy. He was unaware of his anemia as no one has discussed it with him which I find I would since anemia is uncommon in a male of his age. He does seem to have chronic leukocytosis. This is another thing that has never been discussed with him, it is possible that it just appears to be chronic because he has come in to our facility only when he had an active diverticulitis infection, but I think that we should repeat the CBC and find out if this is something that needs further investigation. He has a smoker so this could be a contributing factor to chronic leukocytosis if we think this is a chronic issue. Obviously I am going to repeat a CBC and a Chem panel and do some fit testing. If his fit is positive we may need to consider if he needs an upper endoscopy for the anemia. I think that the secret to keeping him from having recurrent diverticulitis attacks will be to control the constipation and I am also encouraging him to start a fiber supplement. However, he does have severe diverticulosis throughout the entire colon even though it appears that the areas affected were in the sigmoid in each of his past few cases. We review his colonoscopy and he is agreeable to a 5 year repeat. The procedure was well tolerated. The results were explained and the patient is agreeable to the follow-up interval as stated. Education was provided to tell any 1st degree relatives about their findings to be sure that they are screened by age 45. Educated that they will be put on a recall list when it is time for their repeat scope but should they move out of state or away from the hospital they will need to remember along with their primary to repeat the procedure in a timely fashion to avoid any adverse complications. Return office visit in 3 weeks to titrate his constipation therapy. Orders: Orders TSH reflex Free T4 Today D64.9 - Anemia, un specified, D72.829 - Elevated white blood cell count, unspecified, F17.2 00 - Nicotine depe ndence, unspecifie d, uncomplicated, K57.92 - Diverticu litis of intestine , part unspecified , without perforat ion or abscess wit hout bleeding, K59 .04 - Chronic idio pathic constipatio n Complete Blood Cou nt Auto Diff Today D64.9 - Anemia, un specified, D72.829 - Elevated white blood cell count, unspecified, F17.2 00 - Nicotine depe ndence, unspecifie d, uncomplicated, K57.92 - Diverticu litis of intestine , part unspecified , without perforat ion or abscess wit hout bleeding, K59 .04 - Chronic idio pathic constipatio n Ferritin Today D64.9 - Anemia, un specified, D72.829 - Elevated white blood cell count, unspecified, F17.2 00 - Nicotine depe ndence, unspecifie d, uncomplicated, K57.92 - Diverticu litis of intestine , part unspecified , without perforat ion or abscess wit hout bleeding, K59 .04 - Chronic idio pathic constipatio n FITS Today D64.9 - Anemia, un specified, D72.829 - Elevated white blood cell count, unspecified, F17.2 00 - Nicotine depe ndence, unspecifie d, uncomplicated, K57.92 - Diverticu litis of intestine , part unspecified , without perforat ion or abscess wit hout bleeding, K59 .04 - Chronic idio pathic constipatio n Comprehensive Met. Panel Today D64.9 - Anemia, un specified, D72.829 - Elevated white blood cell count, unspecified, F17.2 00 - Nicotine depe ndence, unspecifie d, uncomplicated, K57.92 - Diverticu litis of intestine , part unspecified , without perforat ion or abscess wit hout bleeding, K59 .04 - Chronic idio pathic constipatio n Medications: New linaclotide (Linze ss) 290 mcg PO QAM 30 days 30 caps 6RF K57.92 - Diverticu litis of intestine , part unspecified , without perforat ion or abscess wit hout bleeding, K59 .04 - Chronic idio pathic constipatio n bisacodyl (Dulcola x (bisacodyl)) 10 mg (2 x 5 mg) P O BEDTIME 30 days 60 tabs 3RF K59.04 - Chronic i diopathic constipa tion Refilled polyethylene glyco l 3350 17 grams PO DAILY 30 ea 6RF Discontinued linaclotide Dis continued Reason: Doctor's Order 145 mcg PO DAILY 90 caps 1RF LABS: Laboratory Tests 03/20/23 04/02/23 Unknown 08:54 WBC 15.3 H RBC 5.17 Hgb 14.3 D Hct 42.8 D MCV 82.8 MCH 27.7 Plt Count 235 Estimated GFR > 60 Total Bilirubin 0.3 AST 14 ALT 10 Alkaline Phosphata se 69 Stool 2 Collect Da te Not Reportable Fecal Immunochem T est NEGATIVE TODAY'S VISIT Linzess and bisacodyl did not work at 2qhs and 290n to move his bowels. Will progress to 2 bisa bid and Linzess. A lot of contributing medications in CIC. Referred to hematology for leukocytosis. Anemia has resolved. Has a lot of neck and back pain. I think this is largely contributing to his general pain syndrome but of course constipation can also work on low back pain. Return office visit in 3 weeks [facility] Medical History Hematuria Lower urinary tract symptoms Abdominal pain Metabolic encephalopathy History of sepsis Generalized weakness Leukocytosis Abdominal pain, acute Personal history of colonic polyps Diverticulosis History of paresthesia Chronic back pain Uncontrolled type 2 diabetes mellitus with hyperglycemia Hypertension Diabetes Surgical History Hx of colonoscopy No pertinent past surgical history Family History Father Diabetes Mother Osteoporosis Social History Household Members: Spouse Household Members Other:: Housing: House Do you presently have visiting nurse or other home services: No Alcohol intake: never Patient Tobacco Use Status: Former Tobacco user Quit Date: 2 WEEKS AGO, ON [employer]ANTIX Tobacco use type: Cigarette Second Hand Smoke Exposure: No Substance Use Type: Opiates service: No Current occupational status: employed 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, 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 Review of Systems Const Denies fatigue, Denies fever(s), Denies night sweats, Denies poor appetite and Denies weight loss Eyes Details: glasses Reports requires corrective lenses ENT Reports Normal hearing present, Denies dental pain, Denies dysphagia, Denies hearing loss, Denies mouth pain, Reports neck pain, Denies odynophagia, Denies throat swelling, Denies tongue swelling and Reports other (Dentition adequate) Card Reports no additional complaints Resp Reports no additional complaints GI Details: Denies abdominal pain, Denies melena, Reports bloating, Denies hematochezia, Reports constipation, Denies GI cramping, Denies dysphagia, Denies excessive flatus, Denies early satiety, Denies heartburn, Denies diarrhea, Denies nausea, Denies odynophagia, Denies vomiting and Denies hematemesis Musc Reports back pain and Reports neck pain Skin/Breast Denies pruritus, Denies lesions, Denies rash and Denies jaundice Neuro Reports Normal hearing present and Denies Abnormal speech present Endo Denies fatigue Aller/Immun Denies throat swelling and Denies tongue swelling Physical Exam Vital Signs: Last Vital Signs Pulse 73 05/05/23 15:20 BP 120/72 05/05/23 15:20 BMI result Body Mass Index 35.2 Const General: cooperative, no acute distress, well developed and well groomed Nutritional Appearance: well nourished and obese Orientation/consciousness: oriented to person, oriented to place and oriented to time Limitations: No language barrier HEENT Head: Yes normocephalic and Yes atraumatic Eyes General: appearance normal, both eyes and all related structures Pupils: Equal, round and reactive pupils present Neck Neck: Yes normal visual inspection and Yes no lymphadenopathy Thyroid: Thyroid normal Resp Effort & Inspection: normal respiratory effort and able to speak in complete sentences Auscultation: clear to auscultation bilaterally Cardio Rate: regular rate Rhythm: regular rhythm Heart sounds: Normal, physiologic split S2 sound present Peripheral pulses: radial pulses present and posterior tibial pulses present GI Inspection: No distended, No Abdominal panniculus present and Yes obesity Palpation (GI): Soft to palpation, nontender, no guarding, not rigid and No hepatosplenomegaly present Percussion: Yes normal to percussion Auscultation: normal bowel sounds Rectal Exam - Male: Yes deferred Skin General skin exam: no rashes or lesions noted, turgor normal, skin not dry, no jaundice, No spider nevi and no striae Rashes: no rashes Nails: normal Neuro General: oriented to person, oriented to place and oriented to time Cranial nerves: Yes Equal, round and reactive pupils present and Yes Normal hearing present Speech: No Abnormal speech present Extrem General: Yes normal to inspection, No clubbing, No cyanosis and No edema Psych Appearance: grossly normal and well kempt Mental Status: mental status grossly normal Speech and movement: Normal speech and movement present Affect: normal affect Attitude: cooperative Thought process: Normal thought process present and not confabulating Thought content: Normal thought content present Insight: Limited insight present (Psych) Judgement: Limited judgement present (Psych) Results Reviewed Results Reviewed: Laboratory Tests 03/20/23 04/02/23 Unknown 08:54 WBC 15.3 H RBC 5.17 Hgb 14.3 D Hct 42.8 D MCV 82.8 MCH 27.7 Plt Count 235 Estimated GFR > 60 Total Bilirubin 0.3 AST 14 ALT 10 Alkaline Phosphatase 69 Stool 2 Collect Date Not Reportable Fecal Immunochem Test NEGATIVE Assessment & Plan Assessment & Plan (1) Leukocytosis: Code(s): D72.829 - Elevated white blood cell count, unspecified Plan Linzess and bisacodyl did not work at 2qhs and 290n to move his bowels. Will progress to 2 bisa bid and Linzess. A lot of contributing medications in CIC. Referred to hematology for leukocytosis. Anemia has resolved. Has a lot of neck and back pain. I think this is largely contributing to his general pain syndrome but of course constipation can also work on low back pain. Return office visit in 3 weeks Orders: Referrals Hematology & Oncology Referral D72.829 - Elevated white blood cell count, unspecified Medications: Changed From bisacodyl (Dulcolax (bisacodyl)) 10 mg (2 x 5 mg) PO BEDTIME 30 days 60 tabs 3RF K59.04 - Chronic idiopathic constipation To bisacodyl (Dulcolax (bisacodyl)) 10 mg (2 x 5 mg) PO BID 30 days 120 tabs 3RF K59.04 - Chronic idiopathic constipation Coding Level of Care Code Est Pt Level 3 (76290) Diagnoses Leukocytosis D72.829
== END 2023-05-05 16:06 | disposition home or self-care (01) ==
PROVIDERS: PCP Internal Medicine; Visit Provider Nurse Practitioner
DX: D72.829 Elevated white blood cell count, unspecified (principal)
CPT/HCPCS: 99213

== ENCOUNTER → 2023-05-05 15:06 | Outpatient (BNVA) | payer OTHER, SELFPAY | PROVIDERS: PCP Internal Medicine; Visit Provider Nurse Practitioner ==

== ENCOUNTER 2023-05-26 15:04 | Outpatient (AMB) | payer OTHER, SELFPAY ==
[2023-05-26 15:06] VITALS: BP 118/79; PULSE 73; BMI 35.7
--- NOTE | 2023-05-26 15:06 | A.OFFVIS_ITS ---
Intake Vital Signs 05/26/23 15:06 Height 5 ft 10 in Weight 248 lb 10.903 oz BMI 35.7 BP 118/79 Blood Pressure Location Lt brachial Position Sitting Pulse 73 Intake Visit Reasons: 3 week follow up severe CIC Intake Note: Patient returns in 3 weeks follow up of constipation. CC: Patient reports that the new medication is not working and he continues constipated and lower back pain. 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 Will progress to 2 bisa bid and Linzess. A lot of contributing medications in CIC. Referred to hematology for leukocytosis. Anemia has resolved. Has a lot of neck and back pain. I think this is largely contributing to his general pain syndrome but of course constipation can also work on low back pain. Return office visit in 3 weeks Orders: Referrals Hematology & Oncol esther Referral D72.829 - Elevated white blood cell count, unspecified Medications: Changed From bisacodyl (Dulcola x (bisacodyl)) 10 mg (2 x 5 mg) P O BEDTIME 30 days 60 tabs 3RF K59.04 - Chronic i diopathic constipa tion To bisacodyl (Dulcola x (bisacodyl)) 10 mg (2 x 5 mg) P O BID 30 days 120 tabs 3RF K59.04 - Chronic i diopathic constipa tion TODAY'S VISIT He has an upcoming appt in May with hematology. He forgot that he can not take 2 Linzess in a day (not understanding that insurance will not pay for more) saying I do not have enough. HOwever he is picking up more today. He has not tried taking 2 bisacodyl bid yet. He will be albe to start this and I will see him back in 4 weeks!! I see his mother Gela! ROV 4 weeks. [facility] Medical History Hematuria Lower urinary tract symptoms Abdominal pain Metabolic encephalopathy History of sepsis Generalized weakness Leukocytosis Abdominal pain, acute Personal history of colonic polyps Diverticulosis History of paresthesia Chronic back pain Uncontrolled type 2 diabetes mellitus with hyperglycemia Hypertension Diabetes Surgical History Hx of colonoscopy No pertinent past surgical history Family History Father Diabetes Mother Osteoporosis Social History Household Members: Spouse Household Members Other:: Housing: House Do you presently have visiting nurse or other home services: No Alcohol intake: never Patient Tobacco Use Status: Former Tobacco user Quit Date: 2 WEEKS AGO, ON [employer] Tobacco use type: Cigarette Second Hand Smoke Exposure: No Substance Use Type: Opiates service: No Current occupational status: employed 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, 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 Review of Systems Const Denies fatigue, Denies fever(s), Denies night sweats, Denies poor appetite and Denies weight loss ENT Reports Normal hearing present, Denies dental pain, Denies dysphagia, Denies hearing loss, Denies mouth pain, Denies odynophagia, Denies throat swelling, Denies tongue swelling and Reports other (Dentition adequate) Card Reports no additional complaints Resp Reports no additional complaints GI Details: Denies abdominal pain, Denies melena, Denies bloating, Denies hematochezia, Reports constipation, Denies GI cramping, Denies dysphagia, Denies excessive flatus, Denies early satiety, Reports heartburn, Denies diarrhea, Denies nausea, Denies odynophagia, Denies vomiting and Denies hematemesis Skin/Breast Denies pruritus, Denies lesions, Denies rash and Denies jaundice Neuro Reports Normal hearing present and Denies Abnormal speech present Endo Denies fatigue Aller/Immun Denies throat swelling and Denies tongue swelling Physical Exam Vital Signs: Last Vital Signs Pulse 73 05/26/23 15:06 BP 118/79 05/26/23 15:06 BMI result Body Mass Index 35.7 Const General: cooperative, no acute distress, well developed and well groomed Nutritional Appearance: well nourished, obese and overweight Orientation/consciousness: oriented to person, oriented to place and oriented to time Limitations: No language barrier, ambulation with cane, ambulation with walker and wheelchair HEENT Head: Yes normocephalic and Yes atraumatic Eyes General: appearance normal, both eyes and all related structures Pupils: Equal, round and reactive pupils present Neck Neck: Yes normal visual inspection and Yes no lymphadenopathy Thyroid: Thyroid normal Resp Effort & Inspection: normal respiratory effort and able to speak in complete sentences Auscultation: clear to auscultation bilaterally Cardio Rate: regular rate Rhythm: regular rhythm Heart sounds: Normal, physiologic split S2 sound present Peripheral pulses: radial pulses present and posterior tibial pulses present GI Inspection: No distended and No Abdominal panniculus present Palpation (GI): Soft to palpation, nontender, no guarding, not rigid, No hepatosplenomegaly present and Hepatosplenomegaly present Percussion: Yes normal to percussion Auscultation: normal bowel sounds Rectal Exam - Male: Yes deferred Skin General skin exam: no rashes or lesions noted, turgor normal, skin not dry, no jaundice, No spider nevi and no striae Rashes: no rashes Nails: normal Neuro General: oriented to person, oriented to place and oriented to time Cranial nerves: Yes Equal, round and reactive pupils present and Yes Normal hearing present Speech: No Abnormal speech present Extrem General: Yes normal to inspection, No clubbing, No cyanosis and No edema Psych Appearance: grossly normal and well kempt Mental Status: mental status grossly normal Speech and movement: Normal speech and movement present Affect: normal affect Attitude: cooperative Thought process: Normal thought process present and not confabulating Thought content: Normal thought content present Insight: Limited insight present (Psych) Judgement: Limited judgement present (Psych) Assessment & Plan Assessment & Plan (1) Chronic idiopathic constipation: Code(s): K59.04 - Chronic idiopathic constipation Plan He has an upcoming appt in May with hematology. He forgot that he can not take 2 Linzess in a day (not understanding that insurance will not pay for more) saying I do not have enough. HOwever he is picking up more today. He has not tried taking 2 bisacodyl bid yet. He will be albe to start this and I will see him back in 4 weeks!! I see his mother Gela! ROV 4 weeks. Medications: Refilled bisacodyl (Dulcolax (bisacodyl)) 10 mg (2 x 5 mg) PO BID 30 days 120 tabs 3RF K59.04 - Chronic idiopathic constipation Coding Level of Care Code Est Pt Level 3 (55932) Diagnoses Chronic idiopathic constipation K59.04
== END 2023-05-26 15:34 | disposition home or self-care (01) ==
PROVIDERS: PCP Internal Medicine; Visit Provider Nurse Practitioner
DX: K59.04 Chronic idiopathic constipation (principal)
CPT/HCPCS: 99213

== ENCOUNTER → 2023-05-26 15:04 | Outpatient (BNVA) | payer OTHER, SELFPAY | PROVIDERS: PCP Internal Medicine; Visit Provider Nurse Practitioner ==

== ENCOUNTER → 2023-06-07 15:00 | Outpatient (BNV) | payer OTHER, SELFPAY | PROVIDERS: PCP Internal Medicine; Referring Provider Nurse Practitioner; Visit Provider Internal Medicine Medical Oncology | DX: D72.829 Elevated white blood cell count, unspecified (principal) | CPT/HCPCS: 99204 ==

== ENCOUNTER 2023-06-24 15:23 | Outpatient (AMB) | payer OTHER, SELFPAY ==
[2023-06-24 15:26] VITALS: BP 110/63; PULSE 62; BMI 34.9
--- NOTE | 2023-06-24 15:26 | A.OFFVIS_ITS ---
Vital Signs 06/24/23 15:26 Height 5 ft 10 in Weight 242 lb 15.19 oz BMI 34.9 BP 110/63 Blood Pressure Location Lt brachial Position Sitting Pulse 62 Intake Visit Reasons: 4 week follow up Intake Note: Patient returns in 4 weeks follow up of constipation. CC: Patient reports that he is doing better from constipation now. Denies having any other GI concerns. Product Development Coordinator Required: No Accompanied by: Self / Same As Patient Allergies lisinopril Allergy (Severe, Verified 06/24/23 15:32) Rash HPI HPI 4 week follow up: Details: Assessment & Plan (1) Chronic idiopathic constipation: Code(s): K59.04 - Chronic idiopathic constipation Plan He has an upcoming appt in May with hematology. He forgot that he can not take 2 Linzess in a day (not understanding that insurance will not pay for more) saying I do not have enough. HOwever he is picking up more today. He has not tried taking 2 bisacodyl bid yet. He will be albe to start this and I will see him back in 4 weeks!! I see his mother Gela! ROV 4 weeks. Medications: Refilled bisacodyl (Dulcolax (bisacodyl)) 10 mg (2 x 5 mg) PO BID 30 days 120 tabs 3RF K59.04 - Chronic idiopathic constipation TODAY'S VISIT He tweaked his back last week lifting something and has severe radicular pain, he has been working from home. He did try the bisacodyl bid and with the Linzess he is moving his bowels well. ROV 6 mos. PFSH Medical History Hematuria Lower urinary tract symptoms Abdominal pain Metabolic encephalopathy History of sepsis Generalized weakness Leukocytosis Abdominal pain, acute Personal history of colonic polyps Diverticulosis History of paresthesia Chronic back pain Uncontrolled type 2 diabetes mellitus with hyperglycemia Hypertension Diabetes Surgical History Hx of colonoscopy No pertinent past surgical history Family History Father Diabetes Mother Osteoporosis Social History Household Members: Spouse Household Members Other:: Housing: House Do you presently have visiting nurse or other home services: No Alcohol intake: never Patient Tobacco Use Status: Former Tobacco user Quit Date: 2 WEEKS AGO, ON CHANTIX Tobacco use type: Cigarette Second Hand Smoke Exposure: No Substance Use Type: Opiates service: No Current occupational status: employed 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, 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 Review of Systems Const Denies fatigue, Denies fever(s), Denies night sweats, Denies poor appetite and Denies weight loss ENT Reports Normal hearing present, Denies dental pain, Denies dysphagia, Denies hearing loss, Denies mouth pain, Denies odynophagia, Denies throat swelling, Denies tongue swelling and Reports other (Dentition adequate) Card Reports no additional complaints Resp Reports no additional complaints GI Details: Denies abdominal pain, Denies melena, Denies bloating, Denies hematochezia, Reports constipation, Denies GI cramping, Denies dysphagia, Denies excessive flatus, Denies early satiety, Denies heartburn, Denies diarrhea, Denies nausea, Denies odynophagia, Denies vomiting and Denies hematemesis Musc Reports abnormal gait, Reports back pain and Reports radiating pain into limb Skin/Breast Denies pruritus, Denies lesions, Denies rash and Denies jaundice Neuro Reports Normal hearing present, Denies Abnormal speech present and Reports abnormal gait Endo Denies fatigue Aller/Immun Denies throat swelling and Denies tongue swelling Physical Exam Vital Signs: Last Vital Signs Pulse 62 06/24/23 15:26 BP 110/63 06/24/23 15:26 BMI result Body Mass Index 34.9 Const General: cooperative, no acute distress, well developed and well groomed Nutritional Appearance: well nourished and obese Orientation/consciousness: oriented to person, oriented to place and oriented to time Limitations: No language barrier and ambulation with cane HEENT Head: Yes normocephalic and Yes atraumatic Eyes General: appearance normal, both eyes and all related structures Pupils: Equal, round and reactive pupils present Neck Neck: Yes normal visual inspection and Yes no lymphadenopathy Thyroid: Thyroid normal Resp Effort & Inspection: normal respiratory effort and able to speak in complete sentences Auscultation: clear to auscultation bilaterally Cardio Rate: regular rate Rhythm: regular rhythm Heart sounds: Normal, physiologic split S2 sound present Peripheral pulses: radial pulses present and posterior tibial pulses present GI Inspection: No distended, No Abdominal panniculus present and Yes obesity Palpation (GI): Soft to palpation, nontender, no guarding, not rigid and No hepatosplenomegaly present Percussion: Yes normal to percussion Auscultation: normal bowel sounds Rectal Exam - Male: Yes deferred Skin General skin exam: no rashes or lesions noted, turgor normal, skin not dry, no jaundice, No spider nevi and no striae Rashes: no rashes Nails: normal Neuro General: oriented to person, oriented to place and oriented to time Cranial nerves: Yes Equal, round and reactive pupils present and Yes Normal hearing present Speech: No Abnormal speech present Extrem General: Yes normal to inspection, No clubbing, No cyanosis and No edema Psych Appearance: grossly normal and well kempt Mental Status: mental status grossly normal Speech and movement: Normal speech and movement present Affect: normal affect Attitude: cooperative Thought process: Normal thought process present and not confabulating Thought content: Normal thought content present Insight: Good insight present (Psych) Judgement: Good judgement present (Psych) Assessment & Plan Assessment & Plan (1) Chronic idiopathic constipation: Code(s): K59.04 - Chronic idiopathic constipation Category: Medical Plan He tweaked his back last week lifting something and has severe radicular pain, he has been working from home. He did try the bisacodyl bid and with the Linzess he is moving his bowels well. ROV 6 mos. Medications: Changed From linaclotide (Linzess) 290 mcg PO QAM 30 days 30 caps 6RF K57.92 - Diverticulitis of intestine, part unspecified, without perforation or abscess without bleeding, K59.04 - Chronic idiopathic constipation To linaclotide (Linzess) 290 mcg PO QAM 90 caps 1RF 90 days K57.92 - Diver ticulitis of intestine, part unspecified, without perforation or abscess without bleeding, K59.04 - Chronic idiopathic constipation Refilled bisacodyl (Dulcolax (bisacodyl)) 10 mg (2 x 5 mg) PO BID 120 tabs 6RF 30 days K59.04 - Chronic idiopathic constipation Coding Level of Care Code Est Pt Level 3 (83494) Diagnoses Chronic idiopathic constipation K59.04
== END 2023-06-24 15:58 | disposition home or self-care (01) ==
PROVIDERS: PCP Internal Medicine; Visit Provider Nurse Practitioner
DX: K59.04 Chronic idiopathic constipation (principal)
CPT/HCPCS: 99213

== ENCOUNTER → 2023-06-24 15:23 | Outpatient (BNVA) | payer OTHER, SELFPAY | PROVIDERS: PCP Internal Medicine; Visit Provider Nurse Practitioner ==

== ENCOUNTER 2023-07-02 08:13 | Outpatient (REF) | payer OTHER, SELFPAY ==
[2023-07-02 08:57] LABS: Basophils Percent Auto 0.2 % (0-2); Eosinophils Absolute Auto 0.7 X10*3/uL (0.0-0.4); Eosinophils Percent Auto 3.1 % (0-4); Hematocrit 40.1 % (42.0-52.0); Hemoglobin 13.4 g/dl (14.0-18.0); Imm Gran Abs Auto 0.15 X10*3/uL (0.00-0.03); Imm Gran Pct Auto 0.7 % (0.0-0.4); Lymphocytes Absolute Auto 5.2 X10*3/uL (1.2-4.9); Lymphocytes Percent Auto 24.5 % (20-40); MANUAL DIFF FLAG SCAN; Mean Corpuscular HGB Conc 33.4 g/dl (31.0-36.0); Mean Corpuscular Hemoglobin 28.6 pg (27.0-33.0); Mean Corpuscular Volume 85.5 fL (80.0-98.0); Mean Platelet Volume 11.5 fL (9.4-12.4); Monocytes Absolute Auto 1.6 X10*3/uL (0.1-1.2); Monocytes Percent Auto 7.7 % (2-11); Neutrophils Absolute Auto 13.4 x10*3/uL (2.0-8.3); Neutrophils Percent Auto 63.8 % (45-73); Platelet Count 192 X10*3/uL (160-400); Red Blood Count 4.69 X10*6/uL (4.60-5.80); Red Cell Distribution Width 14.9 % (11.0-16.0); SCAN SMEAR FLAG 1; White Blood Count 21.1 X10*3/uL (4.8-10.8)
[2023-07-02 09:16] LABS: SLIDE REVIEW VERIFIED
[2023-07-02 09:50] LABS: Alanine Aminotransferase 23 U/L (0-40); Albumin Level 3.7 g/dL (3.5-5.0); Alkaline Phosphatase 65 U/L (39-117); Anion Gap 13 (12-20); Aspartate Amino Transferase 26 U/L (5-37); Bilirubin Total 0.3 mg/dL (0.0-1.0); Blood Urea Nitrogen 14 mg/dL (9-16); Calcium 9.6 mg/dL (8.4-10.2); Carbon Dioxide 23 mmol/L (22-29); Chloride 106 mmol/L (96-108); Estimated Glomerular Filt Rate > 60; Glucose Random 113 mg/dL (60-115); Potassium 4.1 mmol/L (3.3-5.1); Sodium 138 mmol/L (135-145); Total Protein 6.6 g/dL (6.5-8.0)
[2023-07-02 10:07] LABS: TSH reflex Free T4 1.53 uIU/mL (0.32-4.0)
== END 2023-07-02 08:14 | disposition home or self-care (01) ==
LOC: HO.LAB 08:13
PROVIDERS: PCP Internal Medicine; Visit Provider Nurse Practitioner
DX: K57.92 Diverticulitis of intestine, part unspecified, without perforation or abscess without bleeding (principal); F17.200 Nicotine dependence, unspecified, uncomplicated; D72.829 Elevated white blood cell count, unspecified; D64.9 Anemia, unspecified; K59.04 Chronic idiopathic constipation
CPT/HCPCS: 36415; 80053; 84443; 85025

== ENCOUNTER 2023-07-05 14:29 | Outpatient (AMB) | payer OTHER, SELFPAY ==
--- NOTE | 2023-07-05 14:31 | MHC.OFFVIS ---
Intake Visit Reasons: 6m/PVR Intake Note: Patient presents for follow up urinary retention Urology Medications: tamsulosin Blood Thinner: aspirin PVR: 22ml's Executor Of Estate Required: No Accompanied by: Self / Same As Patient Allergies lisinopril Allergy (Severe, Verified 07/05/23 21:46) Rash Medication List - Last Reconciled 07/05/23 by HARLEEN Brown- aspirin 81 mg PO DAILY bisacodyl (Dulcolax (bisacodyl)) 10 mg (2 x 5 mg) PO BID 30 days blood sugar diagnostic (FreeStyle Lite Strips) As directed blood-glucose meter (FreeStyle Lite Meter kit) As directed once a day flash glucose scanning reader (FreeStyle Norma 2 Carnation) As directed flash glucose sensor (FreeStyle Norma 2 Sensor kit) DIRECTED TO TEST BLOOD SUGAR DIRECTED hydrocodone bitartrate ER (Hysingla ER) 30 mg PO BEDTIME lancets (FreeStyle Lancets) As directed once a day linaclotide (Linzess) 290 mcg PO QAM 90 days losartan 100 mg PO DAILY naproxen 500 mg PO BID oxycodone 10 mg PO QID PRN pen needle, diabetic (BD Latonya 2nd Gen Pen Needle) As directed once a week polyethylene glycol 3350 17 grams PO DAILY pregabalin (Lyrica) 300 mg PO DAILY rosuvastatin 20 mg PO BEDTIME tamsulosin 0.4 mg PO BEDTIME 90 days tirzepatide (Mounjaro) 7.5 mg (0.5 mL) subcut QWEEK HPI Comments Details: Paolo is a very pleasant 57-year-old male patient of Dr. Serra. He has a past medical history of chronic back pain, diabetes, leukocytosis, diverticulosis, and hypertension. He presents to the office today for follow-up of his urinary retention. He reports since last office here approximately 6 months ago he hurt his back at work while picking up a sani can/porty potty. He discusses following up with spine as well as pain management for this issue. He currently denies any bothersome urinary issues or concerns. He reports to be complaint with Flomax 0.4mg daily. Previous workup has included a retroperitoneal ultrasound noting bilateral kidneys with no calculi, lesions, and or hydronephrosis noted. The bladder wall thickness of 0.7 cm, however, bladder only moderately distended, limiting evaluation. Mild diffuse irregularity/trabeculations of the bladder wall. Enlarged prostate, volume approximately 43 mL. PSA 12/20 0.5. He currently denies urinary urgency, urinary frequency, incontinence, nocturia, hematuria, dysuria, foul smelling urine, changes to urinary stream, flank pain, fever, and or chills. In office urinalysis results reviewed with the patient today. PVR 22mls. PFSH Medical History Hematuria Lower urinary tract symptoms Abdominal pain Metabolic encephalopathy History of sepsis Generalized weakness Leukocytosis Abdominal pain, acute Personal history of colonic polyps Diverticulosis History of paresthesia Chronic back pain Uncontrolled type 2 diabetes mellitus with hyperglycemia Hypertension Diabetes Surgical History Hx of colonoscopy No pertinent past surgical history Family History Father Diabetes Mother Osteoporosis Social History Household Members: Spouse Household Members Other:: Housing: House Do you presently have visiting nurse or other home services: No Alcohol intake: never Patient Tobacco Use Status: Former Tobacco user Quit Date: 2 WEEKS AGO, ON [employer]ANTIX Tobacco use type: Cigarette Second Hand Smoke Exposure: No Substance Use Type: Opiates service: No Current occupational status: employed 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, 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 Review of Systems Const Reports as per HPI Eyes Reports no additional complaints ENT Reports no additional complaints Card Reports as per HPI Resp Reports no additional complaints GI Reports as per HPI Reports as per HPI Musc Reports as per HPI Neuro Reports no additional complaints Psych Reports no additional complaints Endo Reports as per HPI Ji/Lymph Reports no additional complaints Aller/Immun Reports no additional complaints Physical Exam Const General: cooperative, healthy appearing, comfortable, no acute distress, well developed, alert and awake Orientation/consciousness: patient oriented x3 Limitations: ambulation with cane HEENT Head: Yes normal to inspection, Yes normocephalic and Yes atraumatic Ears: hearing grossly normal bilaterally Eyes General: appearance normal, both eyes and all related structures Neck Neck: Yes normal visual inspection and Yes trachea midline Chest Chest palpation & inspection: normal inspection of the chest Resp Effort & Inspection: normal respiratory effort and able to speak in complete sentences Cardio Rate: regular rate GI Inspection: Yes normal to inspection General: Yes no CVA tenderness Back/Spine/Pelvis Back: no CVA tenderness Skin General skin exam: no rashes or lesions noted Neuro General: patient oriented x3 Extrem General: Yes normal to inspection Psych Appearance: grossly normal and well kempt Mental Status: mental status grossly normal Speech and movement: Normal speech and movement present and Clear speech present Affect: normal affect Attitude: cooperative Thought process: Normal thought process present Thought content: Normal thought content present Insight: Fair insight present (Psych) Judgement: Fair judgement present (Psych) Office Procedures Post Void Residual Post Residual Void Post Void Residual (PVR): 22 [id number] Void Residual by ultrasound Results AMB Urinalysis, Automated UA Leukoctes 0 Ghada/uL Last Edit by Nutrigreen on 07/05/23 14:49 UA Nitrite Last Edit by Nutrigreen on 07/05/23 14:49 UA Urobilinogen 0.2 mg/dL Last Edit by Nutrigreen on 07/05/23 14:49 UA Protein 15 mg/dL Last Edit by Nutrigreen on 07/05/23 14:49 UA pH 6.0 Last Edit by Nutrigreen on 07/05/23 14:49 UA Blood 0 Kade/uL Last Edit by Nutrigreen on 07/05/23 14:49 UA Specific Linden 1.030 Last Edit by Nutrigreen on 07/05/23 14:49 UA Ketone Last Edit by Nutrigreen on 07/05/23 14:49 UA Bilirubin 0 mg/dL Last Edit by Nutrigreen on 07/05/23 14:49 UA Glucose 0 mg/dL Last Edit by Nutrigreen on 07/05/23 14:49 Results Reviewed Results Reviewed: Laboratory Last Values Urine pH (Auto) 6.0 07/05/23 14:45 Specific Lind[place] (Auto) 1.030 07/05/23 14:45 Urine Protein (Auto) 15 mg/dL 07/05/23 14:45 Glucose (UA)(Auto) 0 mg/dL 07/05/23 14:45 Urine Blood (Auto) 0 Kade/uL 07/05/23 14:45 Urine Bilirubin (Auto) 0 mg/dL 07/05/23 14:45 Urine Urobilinogen (Auto) 0.2 mg/dL 07/05/23 14:45 Leukocyte Esterase (Auto) 0 Ghada/uL 07/05/23 14:45 Assessment & Plan Assessment & Plan (1) Enlarged prostate: Code(s): N40.0 - Benign prostatic hyperplasia without lower urinary tract symptoms Category: Medical (2) Bladder trabeculation: Code(s): N32.89 - Other specified disorders of bladder Category: Medical (3) Bladder wall thickening: Code(s): N32.89 - Other specified disorders of bladder Category: Medical (4) Urinary retention: Code(s): R33.9 - Retention of urine, unspecified Category: Medical Plan In office urinalysis results reviewed with the patient today; as noted above. PVR 22ml's. Continue flomax as prescribed. Patient currently denies any bothersome urinary issues or concerns. Patient reports to be happy with current voiding parameters on flomax 0.4mg daily. Discussed possible near future in office cystoscopy if symptoms arise. Discussed, educated, and stressed the importance of managing diabeted for overall health and wellbeing. Discussed, educated, and stressed the importance of quitting/limiting nicotine dependence for overall health and well-being. Will obtain PSA now and in one year Follow up in one year with lab to be completed prior. Orders: Orders AMB Urinalysis Automated Today Z13.9 - Encounter for screening, unspecified AMB Post Void Residual by ultrasound Today N32.89 - Other specified disorders of bladder Prostate Specific Antigen Today N40.0 - Benign prostatic hyperplasia without lower urinary tract symptoms Prostate Specific Antigen 1 Year N40.0 - Benign prostatic hyperplasia without lower urinary tract symptoms Patient Instructions: The patient had an opportunity to ask questions regarding the treatment plan. All questions were answered. Physical exam, labs, and imaging were discussed and reviewed in detail. As well as risks, benefits, and discussion of treatment choices. No major barriers to understanding were identified. The patient expressed understanding and agreement with the above treatment plan. The patient was made aware they should contact our office by phone for worsening of their current condition, the appearance of new symptoms, or with any questions or concerns. Compliance is encouraged with any medications and follow up testing that is ordered. It is a privilege to be allowed the opportunity to participate in? your urological care.? Again, if you have any questions or concerns If you have any questions or concerns please do not hesitate to contact me. The office is [phone]. This note is constructed using voice recognition software. While every effort has been made to ensure accuracy nursing surgical services director errors may have been included. Yours sincerely, JANET Brown Coding Level of Care Code Est Pt Level 3 (11100) Diagnoses Enlarged prostate N40.0 Bladder trabeculation N32.89 Bladder wall thickening N32.89 Urinary retention R33.9 CPT Codes Post Residual Void - PVR CPT Code: 57065-Iveo Void Residual by ultrasound ([id number])
== END 2023-07-05 15:02 | disposition home or self-care (01) ==
PROVIDERS: PCP Internal Medicine; Visit Provider Nurse Practitioner Family
DX: N40.0 Benign prostatic hyperplasia without lower urinary tract symptoms (principal); N32.89 Other specified disorders of bladder; R33.9 Retention of urine, unspecified; Z13.9 Encounter for screening, unspecified
CPT/HCPCS: 99213

== ENCOUNTER → 2023-07-05 14:29 | Outpatient (BNVA) | payer OTHER, SELFPAY | PROVIDERS: PCP Internal Medicine; Visit Provider Nurse Practitioner Family | DX: N40.1 Benign prostatic hyperplasia with lower urinary tract symptoms (principal); R33.8 Other retention of urine; N32.89 Other specified disorders of bladder; Z79.899 Other long term (current) drug therapy | CPT/HCPCS: 51798; 81003 ==

== ENCOUNTER 2023-07-08 13:44 | Outpatient (AMB) | payer OTHER, SELFPAY ==
--- NOTE | 2023-07-08 13:51 | A.OFFVIS_ITS ---
Intake Visit Reasons: OV-B/L shoulder injection Intake Note: Paolo a 57 year old male presents today for his bilateral shoulder cortisone injections. Patient reports his last injection in her left shoulder gave him about 4 months of relief. Allergies lisinopril Allergy (Severe, Verified 07/08/23 14:08) Rash HPI HPI OV-B/L shoulder injection: Details: 57-year-old male who returns to the office today for a follow-up of bilateral shoulder. He had a right shoulder injection on 01/24/23 and a left shoulder injection on 01/13/23 which gave him relief for 4 months. He would like to repeat the injection today. [facility] Medical History Hematuria Lower urinary tract symptoms Abdominal pain Metabolic encephalopathy History of sepsis Generalized weakness Leukocytosis Abdominal pain, acute Personal history of colonic polyps Diverticulosis History of paresthesia Chronic back pain Uncontrolled type 2 diabetes mellitus with hyperglycemia Hypertension Diabetes Surgical History Hx of colonoscopy No pertinent past surgical history Family History Father Diabetes Mother Osteoporosis Social History Household Members: Spouse Household Members Other:: Housing: House Do you presently have visiting nurse or other home services: No Alcohol intake: never Patient Tobacco Use Status: Former Tobacco user Quit Date: 2 WEEKS AGO, ON [employer]RISTEN NTIX Tobacco use type: Cigarette Second Hand Smoke Exposure: No Substance Use Type: Opiates service: No Current occupational status: employed 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 Tenderness over the bicipital groove and along the deltoid region of the shoulder. Forward flexion to 175, external rotation to 90, internal rotation to S1. 5/5 RTC strength. Negative Viera and cross body abduction. NVI. Office Procedures Joint Injection/Drain Joint Injection/Drain Primary Site: left shoulder Prep: site was prepped using aseptic technique, ethochloride spray was applied and injection warnings given Injected: 40 mg of, DepoMedrol, with 8 mL of, 1% plain lidocaine and in the subcromial space Approach Used: posterolateral Procedure: The patient tolerated the procedure well and there was some relief with the local anesthesia Coding 53560 - Glenohumeral/Tronchanteric Bursa/Intraarticular Procedure code (CPT) selection complete Assessment & Plan Assessment & Plan (1) Tendonitis of left rotator cuff: Code(s): M75.82 - Other shoulder lesions, left shoulder Category: Medical Plan We discussed options today which include steroid injection. They did consent to move forward with the left shoulder injection, which was tolerated well. I recommended rest, ice and elevation and OTC anti-inflammatories PRN for discomfort. We also discussed their diabetes and the effect the steroid can have on their blood glucose levels; therefore, they will continue to monitor these very closely over the next 72 hours. If there are any concerns, they should report to the ED immediately. Patient Instructions: Scribed for Jese Jarquin PA-C, by Paul Hewitt medical billing coordinator, on 07/08/2023 at 1:45 PM EST. I, Jese Jarquin PA-C, have personally reviewed and agree with the information entered by the scribe. Coding Level of Care Code Est Pt Level 3 (20798) Diagnoses Tendonitis of left rotator cuff M75.82 CPT Codes Coding - Joint 7: 97691 - Glenohumeral/Tronchanteric Bursa/Intraarticular ([id number])
== END 2023-07-08 14:13 | disposition home or self-care (01) ==
PROVIDERS: PCP Internal Medicine; Visit Provider Physician Assistant
DX: M75.82 Other shoulder lesions, left shoulder (principal)
CPT/HCPCS: 20610; 99213

== ENCOUNTER → 2023-07-08 13:44 | Outpatient (BNVA) | payer OTHER, SELFPAY | PROVIDERS: PCP Internal Medicine; Visit Provider Physician Assistant | DX: M75.82 Other shoulder lesions, left shoulder (principal) | CPT/HCPCS: 20610; J1010 ==

== ENCOUNTER 2023-07-21 07:02 | Outpatient (REF) | payer OTHER, SELFPAY ==
[2023-07-21 07:14] LABS: MANUAL DIFF FLAG NO
[2023-07-21 08:06] LABS: Basophils Absolute Auto 0.1 X10*3/uL (0.0-0.2); Basophils Percent Auto 0.8 % (0-2); Eosinophils Absolute Auto 0.5 X10*3/uL (0.0-0.4); Hematocrit 43.4 % (42.0-52.0); Hemoglobin 14.2 g/dl (14.0-18.0); Imm Gran Abs Auto 0.04 X10*3/uL (0.00-0.03); Imm Gran Pct Auto 0.3 % (0.0-0.4); Lymphocytes Absolute Auto 3.9 X10*3/uL (1.2-4.9); Lymphocytes Percent Auto 29.9 % (20-40); Mean Corpuscular HGB Conc 32.7 g/dl (31.0-36.0); Mean Corpuscular Hemoglobin 28.5 pg (27.0-33.0); Monocytes Absolute Auto 1.1 X10*3/uL (0.1-1.2); Monocytes Percent Auto 8.4 % (2-11); Neutrophils Absolute Auto 7.4 x10*3/uL (2.0-8.3); Neutrophils Percent Auto 56.6 % (45-73); Platelet Count 355 X10*3/uL (160-400); Red Blood Count 4.99 X10*6/uL (4.60-5.80); Red Cell Distribution Width 14.8 % (11.0-16.0); White Blood Count 13.1 X10*3/uL (4.8-10.8)
[2023-07-21 08:40] LABS: Creatinine Urine 254.49 mg/dL; Microalbum/Creatinine Ratio Ur 5.8 ug/mg cr (<30)
[2023-07-21 08:40] LABS: Alanine Aminotransferase 18 U/L (0-40); Albumin Level 3.7 g/dL (3.5-5.0); Alkaline Phosphatase 89 U/L (39-117); Anion Gap 10 (12-20); Aspartate Amino Transferase 17 U/L (5-37); Bilirubin Total 0.2 mg/dL (0.0-1.0); Blood Urea Nitrogen 12 mg/dL (9-16); Calcium 9.6 mg/dL (8.4-10.2); Carbon Dioxide 26 mmol/L (22-29); Chloride 109 mmol/L (96-108); Cholesterol 149 mg/dL (<200); Estimated Glomerular Filt Rate > 60; Glucose Random 126 mg/dL (60-115); HDL Cholesterol 34 mg/dL (>40); LDL Cholesterol Calculated 85 mg/dL (<100); Sodium 141 mmol/L (135-145); Total Protein 6.7 g/dL (6.5-8.0); Triglycerides 153 mg/dL (<150)
== END 2023-07-21 07:03 | disposition home or self-care (01) ==
LOC: HO.LAB 07:02
PROVIDERS: PCP Internal Medicine; Visit Provider Internal Medicine
DX: E11.9 Type 2 diabetes mellitus without complications (principal); I10 Essential (primary) hypertension; M70.51 Other bursitis of knee, right knee; N40.1 Benign prostatic hyperplasia with lower urinary tract symptoms
CPT/HCPCS: 36415; 80053; 80061; 82043; 82570; 85025

== ENCOUNTER 2023-08-08 13:46 | Outpatient (REF) | payer OTHER, SELFPAY ==
--- NOTE | ~2023-08-08 | XR_ITS ---
EXAMINATION: XR STANDING BILATERAL KNEES XR KNEE, RIGHT XR KNEE, LEFT CLINICAL INFORMATION: Patient fell on Tuesday on driveway. COMPARISON: None available. TECHNIQUE: AP standing view of bilateral knees. 5 views of the left knee. 4 views of the right knee. FINDINGS: AP Standing: Mild narrowing of the bilateral medial compartments, right greater than left. Right Knee: Mild narrowing of the medial compartment. No significant joint effusion. Alignment maintained. Tiny posterior patellar osteophytes. Left Knee: Mild narrowing of the lateral compartment. No significant joint effusion. Alignment maintained. Small posterior patellar osteophytes. 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
--- NOTE | ~2023-08-08 | XR_ITS ---
EXAMINATION: XR STANDING BILATERAL KNEES XR KNEE, RIGHT XR KNEE, LEFT CLINICAL INFORMATION: Patient fell on Tuesday on driveway. COMPARISON: None available. TECHNIQUE: AP standing view of bilateral knees. 5 views of the left knee. 4 views of the right knee. FINDINGS: AP Standing: Mild narrowing of the bilateral medial compartments, right greater than left. Right Knee: Mild narrowing of the medial compartment. No significant joint effusion. Alignment maintained. Tiny posterior patellar osteophytes. Left Knee: Mild narrowing of the lateral compartment. No significant joint effusion. Alignment maintained. Small posterior patellar osteophytes. 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
== END 2023-08-08 13:47 | disposition home or self-care (01) ==
LOC: HO.XRAY 13:46
PROVIDERS: PCP Internal Medicine; Visit Provider Internal Medicine
DX: M17.0 Bilateral primary osteoarthritis of knee (principal)
CPT/HCPCS: 73564

== ENCOUNTER 2023-08-12 07:31 | Outpatient (REF) | payer OTHER, SELFPAY ==
--- NOTE | ~2023-08-12 | XR_ITS ---
EXAMINATION: XR STANDING BILATERAL KNEES XR KNEE, RIGHT XR KNEE, LEFT CLINICAL INFORMATION: Patient fell on Tuesday on driveway. COMPARISON: None available. TECHNIQUE: AP standing view of bilateral knees. 5 views of the left knee. 4 views of the right knee. FINDINGS: AP Standing: Mild narrowing of the bilateral medial compartments, right greater than left. Right Knee: Mild narrowing of the medial compartment. No significant joint effusion. Alignment maintained. Tiny posterior patellar osteophytes. Left Knee: Mild narrowing of the lateral compartment. No significant joint effusion. Alignment maintained. Small posterior patellar osteophytes. XR/XR knee standing BI IMPRESSION: Mild degenerative changes in the bilateral knees.
== END 2023-08-12 07:32 | disposition home or self-care (01) ==
LOC: HO.HOSX 07:31
PROVIDERS: Visit Provider Physician Assistant
DX: M25.561 Pain in right knee (principal); M25.562 Pain in left knee
CPT/HCPCS: 73565

== ENCOUNTER 2023-08-12 10:50 | Outpatient (AMB) | payer OTHER, SELFPAY ==
--- NOTE | 2023-08-12 11:10 | A.OFFVIS_ITS ---
Vital Signs 08/12/23 11:12 Height 5 ft 10 in Weight 242 lb BMI 34.7 Intake Visit Reasons: Newprob-Acute effusion Left knee Fell on 08/06/23 Intake Note: Paolo is a 57 year old male who presents today with his and a cane for a new problem visit with complaints of left knee pain. Patient reports a fall on Tuesday08/06/23. He explains he was walking down his driveway when he slipped on mud and berries from a tree landing in the splits position. His daughter needed to assist him up from the ground. The day after his pain was unbearable but since then the pain has slightly decreased but it is still consistent and sharp in the lateral aspect of the left knee. He would like to know if his scans are showing arthritis and if this fall created any damage to his knee. Accompanied by: Spouse Allergies lisinopril Allergy (Severe, Verified 08/12/23 11:12) Rash HPI HPI Newprob-Acute effusion Left knee Fell on 08/06/23: Details: 57-year-old male who presents to the office today for an evaluation of left knee after a fall where he was walking down his driveway when he slipped on mud and berries on the tree landing in the splits position, 08/06/23. His daughter needed to assist him up from the ground. He reports he had unbearable pain the next day however he has improvement in his pain. He currently states he has constant sharp pain at the lateral aspect of his knee. He also experiences some clicking in his knee with ambulation. He is wearing a boot without benefits. He uses a cane to ambulate. He takes Tylenol for his pain. [facility] Medical History Hematuria Lower urinary tract symptoms Abdominal pain Metabolic encephalopathy History of sepsis Generalized weakness Leukocytosis Abdominal pain, acute Personal history of colonic polyps Diverticulosis History of paresthesia Chronic back pain Uncontrolled type 2 diabetes mellitus with hyperglycemia Hypertension Diabetes Surgical History Hx of colonoscopy No pertinent past surgical history Family History Father Diabetes Mother Osteoporosis Social History Household Members: Spouse Household Members Other:: Housing: House Do you presently have visiting nurse or other home services: No Alcohol intake: never Patient Tobacco Use Status: Former Tobacco user Tobacco use type: Cigarette Second Hand Smoke Exposure: No Substance Use Type: Opiates service: No Current occupational status: employed 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 Tenderness along the lateral joint line. Pain along the MCP and mild discomfort with valgus stress testing. Full ROM with crepitus. Negative Airam?s. No ligamentous laxity. NVI. ? Results Reviewed Results Reviewed: XR knee standing BI IMPRESSION: Mild degenerative changes in the bilateral knees. Assessment & Plan Assessment & Plan (1) MCL sprain of left knee: Code(s): S83.412A - Sprain of medial collateral ligament of left knee, initial encounter Category: Medical Plan We discussed options which include PT, and NSAIDs. The patient will proceed with PT and NSAIDs. He was given a hinge knee brace in the office today. If symptoms persist, she will contact me for an injection, otherwise, PRN. Orders: Orders XR knee standing BI 08/12/23 M25.561 - Pain in right knee, M25.562 - Pain in left knee PT Evaluation and Treatment 08/12/23 S83.412A - Sprain of medial collateral ligament of left knee, initial encounter Patient Instructions: Scribed for Jese Jarquin PA-C, by Paul Hewitt medical office specialist, on 08/12/2023 at 10:45 AM EST.? I, Jese Jarquin PA-C, have personally reviewed and agree with the information entered by the scribe. Coding Level of Care Code Est Pt Level 3 (20414) Diagnoses MCL sprain of left knee S83.412A
[2023-08-12 11:12] VITALS: BMI 34.7
== END 2023-08-12 12:19 | disposition home or self-care (01) ==
PROVIDERS: PCP Internal Medicine; Visit Provider Physician Assistant
DX: S83.412A Sprain of medial collateral ligament of left knee, initial encounter (principal); W19.XXXA Unspecified fall, initial encounter
CPT/HCPCS: 99213

== ENCOUNTER 2023-12-14 11:37 | Outpatient (AMB) | payer OTHER, SELFPAY ==
--- NOTE | 2023-12-14 11:38 | MHC.OFFVIS ---
Intake Visit Reasons: OV bilat shoulder cortisone injections Intake Note: Paolo a 57 year old male who presents today for a follow up of bilateral shoulder pain, last left shoulder injection on 07/08/23. Patient reports last injection provided him with relief until about 2 weeks ago. He would like bilateral shoulder injections today. Allergies lisinopril Allergy (Severe, Verified 12/14/23 11:48) Rash HPI HPI OV bilat shoulder cortisone injections: Details: 57-year-old male who returns to the office today for a follow-up of bilateral shoulder pain. He continues to have pain in his bilateral shoulders. He had his last shoulder injection on 07/08/23. He has a history of diabetes. [facility] Medical History Hematuria Lower urinary tract symptoms Abdominal pain Metabolic encephalopathy History of sepsis Generalized weakness Leukocytosis Abdominal pain, acute Personal history of colonic polyps Diverticulosis History of paresthesia Chronic back pain Uncontrolled type 2 diabetes mellitus with hyperglycemia Hypertension Diabetes Surgical History Hx of colonoscopy No pertinent past surgical history Family History Father Diabetes Mother Osteoporosis Social History Household Members: Spouse Household Members Other:: Housing: House Do you presently have visiting nurse or other home services: No Alcohol intake: never Patient Tobacco Use Status: Former Tobacco user Tobacco use type: Cigarette Second Hand Smoke Exposure: No Substance Use Type: Opiates service: No Current occupational status: employed 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 Tenderness over the bicipital groove and along the deltoid region of the shoulder. Forward flexion to 175, external rotation to 90, internal rotation to S1. 5/5 RTC strength. Negative Viera and cross body abduction. NVI. Office Procedures Joint Injection/Aspiration Joint Injection/Aspiration Primary Site: left shoulder Secondary Site: right shoulder Prep: site was prepped using aseptic technique, ethochloride spray was applied and injection warnings given Injected: 40 mg of, DepoMedrol, with 8 mL of, 1% plain lidocaine and in the subcromial space Approach Used: posterolateral Procedure: The patient tolerated the procedure well and there was some relief with the local anesthesia Coding 02966 - Glenohumeral/Tronchanteric Bursa/Intraarticular Procedure code (CPT) selection complete Assessment & Plan Assessment & Plan (1) Tendonitis of left rotator cuff: Code(s): M75.82 - Other shoulder lesions, left shoulder Category: Medical Plan We discussed options today, which include steroid injection. The patient did consent to move forward with the bilateral shoulder injection, which was tolerated well. I recommended rest, ice, and elevation and OTC anti-inflammatories as needed for discomfort. If symptoms persist or worsen over the next 6-8 weeks, patient will contact the office, otherwise follow-up as needed. We also discussed diabetes and the effect the steroid injection can have on their blood glucose levels; therefore, they will continue to monitor these very closely over the next 72 hours. If there are concerns, they should report to the ED immediately. Patient Instructions: Scribed for Jese Jarquin PA-C, by Paul Hewitt medical record librarians teacher, on 12/14/2023 at 11:45 AM EST.? I, Jese Jarquin PA-C, have personally reviewed and agree with the information entered by the scribe. Coding Level of Care Code Est Pt Level 3 (48416) Complex EM visit Add On G2211 Diagnoses Tendonitis of left rotator cuff M75.82 CPT Codes Coding - Joint 7: 77416 - Glenohumeral/Tronchanteric Bursa/Intraarticular ([id number])
== END 2023-12-14 11:52 | disposition home or self-care (01) ==
LOC: HO.HOS 11:37
PROVIDERS: PCP Internal Medicine; Visit Provider Physician Assistant
DX: M75.82 Other shoulder lesions, left shoulder (principal); M25.511 Pain in right shoulder
CPT/HCPCS: 20610; 99213

== ENCOUNTER → 2023-12-14 11:37 | Outpatient (BNVA) | payer OTHER, SELFPAY | PROVIDERS: PCP Internal Medicine; Visit Provider Physician Assistant | DX: M75.82 Other shoulder lesions, left shoulder (principal); M25.511 Pain in right shoulder | CPT/HCPCS: 20610; J1010; J2003 ==

== ENCOUNTER 2023-12-31 09:57 | Outpatient (REF) | payer OTHER, SELFPAY ==
[2023-12-31 10:50] LABS: Estimated Average Glucose 117 mg/dL; Hemoglobin A1C 146.1237 umol/L; Hemoglobin A1c % 5.7 % (<6.0); Total Hemoglobin (HGBA1C) 3734.9898 umol/L
[2023-12-31 11:08] LABS: Alanine Aminotransferase 24 U/L (0-40); Albumin Level 3.8 g/dL (3.5-5.0); Alkaline Phosphatase 84 U/L (39-117); Anion Gap 11 (12-20); Aspartate Amino Transferase 20 U/L (5-37); Bilirubin Total 0.3 mg/dL (0.0-1.0); Blood Urea Nitrogen 13 mg/dL (9-16); Calcium 10.2 mg/dL (8.4-10.2); Carbon Dioxide 26 mmol/L (22-29); Chloride 110 mmol/L (96-108); Estimated Glomerular Filt Rate > 60; Glucose Random 103 mg/dL (60-115); Potassium 4.4 mmol/L (3.3-5.1); Sodium 143 mmol/L (135-145); Total Protein 6.9 g/dL (6.5-8.0)
== END 2023-12-31 09:58 | disposition home or self-care (01) ==
LOC: HO.LAB 09:57
PROVIDERS: PCP Internal Medicine; Visit Provider Internal Medicine
DX: E11.9 Type 2 diabetes mellitus without complications (principal); E78.2 Mixed hyperlipidemia; I10 Essential (primary) hypertension; R21 Rash and other nonspecific skin eruption; Z72.0 Tobacco use
CPT/HCPCS: 36415; 80053; 83036

== ENCOUNTER 2024-04-21 | Outpatient (REF) | payer OTHER, SELFPAY ==
[2024-04-23 17:33] LABS: Creatinine Urine 123.32 mg/dL; Microalbum/Creatinine Ratio Ur 10.5 ug/mg cr (<30)
--- OUTSIDE RECORDS SUMMARY | 2024-04-23 18:18 | XMS_ITS ---
Author Name [facility] Organization Unknown Problems Problem Status Onset Date Problem Type Date of Resoluti on Source Acute neck pain active 2022-06-20 ProblemAct EN S_ORTHOCT Acute bilateral low back pain active 2022-03-03 ProblemAct ENS_ORTHOCT
== END 2024-04-21 00:01 | disposition home or self-care (01) ==
LOC: HO.LNP
PROVIDERS: Visit Provider Internal Medicine
DX: E11.9 Type 2 diabetes mellitus without complications (principal); E78.2 Mixed hyperlipidemia; I10 Essential (primary) hypertension; N40.1 Benign prostatic hyperplasia with lower urinary tract symptoms
CPT/HCPCS: 82043; 82570

== ENCOUNTER 2024-04-21 09:02 | Outpatient (REF) | payer OTHER, SELFPAY ==
[2024-04-21 10:09] LABS: Estimated Average Glucose 123 mg/dL; Hemoglobin A1C 157.5768 umol/L; Hemoglobin A1c % 5.9 % (<6.0); Total Hemoglobin (HGBA1C) 3876.5717 umol/L
[2024-04-21 10:39] LABS: Alanine Aminotransferase 28 U/L (0-40); Albumin Level 3.7 g/dL (3.5-5.0); Alkaline Phosphatase 81 U/L (39-117); Anion Gap 11 (12-20); Aspartate Amino Transferase 28 U/L (5-37); Bilirubin Total 0.2 mg/dL (0.0-1.0); Blood Urea Nitrogen 14 mg/dL (9-16); Calcium 9.6 mg/dL (8.4-10.2); Carbon Dioxide 27 mmol/L (22-29); Chloride 108 mmol/L (96-108); Cholesterol 185 mg/dL (<200); Estimated Glomerular Filt Rate > 60; Glucose Random 117 mg/dL (60-115); HDL Cholesterol 35 mg/dL (>40); LDL Cholesterol Calculated 122 mg/dL (<100); Potassium 4.7 mmol/L (3.3-5.1); Sodium 141 mmol/L (135-145); Total Protein 7.1 g/dL (6.5-8.0); Triglycerides 143 mg/dL (<150)
[2024-04-21 10:47] LABS: Prostate Specific Antigen Scr 0.33 ng/mL (<0.05-4.0)
== END 2024-04-21 09:03 | disposition home or self-care (01) ==
LOC: HO.LAB 09:02
PROVIDERS: PCP Internal Medicine; Visit Provider Internal Medicine
DX: E11.9 Type 2 diabetes mellitus without complications (principal); E78.2 Mixed hyperlipidemia; I10 Essential (primary) hypertension; M67.813 Other specified disorders of tendon, right shoulder; N40.1 Benign prostatic hyperplasia with lower urinary tract symptoms; Z12.5 Encounter for screening for malignant neoplasm of prostate
CPT/HCPCS: 36415; 80053; 80061; 83036; 84153

== ENCOUNTER 2024-07-04 15:19 | Outpatient (AMB) | payer OTHER, SELFPAY ==
--- NOTE | 2024-07-04 15:19 | MHC.OFFVIS ---
Intake Visit Reasons: 1y/PSA(set) Intake Note: Patient presents today for follow up on: retention, enlarged prostate, and psa lab PSA: 0.33 Urology Medications: tamsulosin Blood Thinner: aspirin PVR: 18ml's Platform Loader Required: No Accompanied by: Self / Same As Patient Allergies lisinopril Allergy (Severe, Verified 07/04/24 16:39) Rash Medication List - Last Reconciled 07/04/24 by HARLEEN Brown- aspirin 81 mg PO DAILY bisacodyl (Laxative (bisacodyl)) 10 mg (2 x 5 mg) PO BEDTIME blood sugar diagnostic (FreeStyle Lite Strips) As directed blood-glucose meter (FreeStyle Lite Meter kit) As directed once a day flash glucose scanning reader (FreeStyle Norma 2 [place]) As directed flash glucose sensor (FreeStyle Norma 2 Sensor kit) DIRECTED TO TEST BLOOD SUGAR DIRECTED lancets (FreeStyle Lancets) As directed once a day linaclotide (Linzess) 290 mcg PO QAM 90 days losartan 100 mg PO DAILY morphine ER 30 mg PO BID oxycodone 20 mg PO QID PRN pen needle, diabetic (BD Latonya 2nd Gen Pen Needle) As directed once a week pregabalin (Lyrica) 300 mg PO DAILY rosuvastatin 20 mg PO BEDTIME tamsulosin 0.8 mg (2 x 0.4 mg) PO BEDTIME 90 days tirzepatide (Mounjaro) 7.5 mg (0.5 mL) subcut QWEEK HPI Comments Details: Paolo is a very pleasant 58-year-old male patient of Dr. Serra. He has a past medical history of chronic back pain, diabetes, leukocytosis, diverticulosis, and hypertension. He presents to the office today for follow-up of his urinary retention. In discussion with the patient today he reports to be doing and feeling well. He reports compliance with 0.4 mg of Flomax however does continue to experience episodes of urinary hesitancy. He otherwise denies any bothersome urinary issues. He denies urinary urgency, urinary frequency, incontinence, nocturia, hematuria, dysuria, foul smelling urine, flank pain, fever, and or chills. Previous workup has included a retroperitoneal ultrasound noting bilateral kidneys with no calculi, lesions, and or hydronephrosis noted. The bladder wall thickness of 0.7 cm, however, bladder only moderately distended, limiting evaluation. Mild diffuse irregularity/trabeculations of the bladder wall. Enlarged prostate, volume approximately 43 mL. recent PSA results reviewed with the patient today as noted and trended below: PSA: 12/20 0.5, 04/24 0.3 in office urinalysis results reviewed with the patient today. PVR 18 mLs. He otherwise denies any other issues or concerns at this time. [facility] Medical History Hematuria Lower urinary tract symptoms Abdominal pain Metabolic encephalopathy History of sepsis Generalized weakness Leukocytosis Abdominal pain, acute Personal history of colonic polyps Diverticulosis History of paresthesia Chronic back pain Uncontrolled type 2 diabetes mellitus with hyperglycemia Hypertension Diabetes Surgical History Hx of colonoscopy No pertinent past surgical history Family History Father Diabetes Mother Osteoporosis Social History Household Members: Spouse Household Members Other:: Housing: House Do you presently have visiting nurse or other home services: No Alcohol intake: never Patient Tobacco Use Status: Former Tobacco user Tobacco use type: Cigarette Second Hand Smoke Exposure: No Substance Use Type: Opiates service: No Current occupational status: employed 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, 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 Review of Systems Const Reports as per HPI Eyes Reports no additional complaints ENT Reports no additional complaints Card Reports as per HPI Resp Reports no additional complaints GI Reports as per HPI Reports as per HPI Musc Reports as per HPI Neuro Reports no additional complaints Psych Reports no additional complaints Endo Reports as per HPI Ji/Lymph Reports no additional complaints Aller/Immun Reports no additional complaints Physical Exam Const General: cooperative, healthy appearing, comfortable, no acute distress, well developed, alert and awake Orientation/consciousness: patient oriented x3 Limitations: ambulation with cane HEENT Head: Yes normal to inspection, Yes normocephalic and Yes atraumatic Ears: hearing grossly normal bilaterally Eyes General: appearance normal, both eyes and all related structures Neck Neck: Yes normal visual inspection and Yes trachea midline Chest Chest palpation & inspection: normal inspection of the chest Resp Effort & Inspection: normal respiratory effort and able to speak in complete sentences Cardio Rate: regular rate GI Inspection: Yes normal to inspection General: Yes no CVA tenderness Back/Spine/Pelvis Back: no CVA tenderness Skin General skin exam: no rashes or lesions noted Neuro General: patient oriented x3 Extrem General: Yes normal to inspection Psych Appearance: grossly normal and well kempt Mental Status: mental status grossly normal Speech and movement: Normal speech and movement present and Clear speech present Affect: normal affect Attitude: cooperative Thought process: Normal thought process present Thought content: Normal thought content present Insight: Fair insight present (Psych) Judgement: Fair judgement present (Psych) Office Procedures Post Void Residual Post Residual Void Post Void Residual (PVR): 18 72784-Mego Void Residual by ultrasound Results AMB Urinalysis, Automated UA Leukoctes 0 Ghada/uL Last Edit by [employer] on 07/04/24 16:09 UA Nitrite Last Edit by [employer] on 07/04/24 16:09 UA Urobilinogen 0.2 mg/dL Last Edit by [employer] on 07/04/24 16:09 UA Protein 0 mg/dL Last Edit by [employer] on 07/04/24 16:09 UA pH 5.5 Last Edit by [employer] on 07/04/24 16:09 UA Blood 0 Kade/uL Last Edit by [employer] on 07/04/24 16:09 UA Specific [place] 1.030 Last Edit by [employer] on 07/04/24 16:09 UA Ketone Last Edit by [employer] on 07/04/24 16:09 UA Bilirubin 0 mg/dL Last Edit by [employer] on 07/04/24 16:09 UA Glucose 0 mg/dL Last Edit by [employer] on 07/04/24 16:09 Results Reviewed Results Reviewed: Laboratory Last Values Urine pH (Auto) 5.5 07/04/24 15: Specific [place] (Auto) 1.030 07/04/24 15:26 Urine Protein (Auto) 0 mg/dL 07/04/24 15: Glucose (UA)(Auto) 0 mg/dL 07/04/24 15:26 Urine Blood (Auto) 0 Kade/uL 07/04/24 15:26 Urine Bilirubin (Auto) 0 mg/dL 07/04/24 15:26 Urine Urobilinogen (Auto) 0.2 mg/dL 07/04/24 15:26 Leukocyte Esterase (Auto) 0 Ghada/uL 07/04/24 15:26 Assessment & Plan Assessment & Plan (1) Enlarged prostate: Code(s): N40.0 - Benign prostatic hyperplasia without lower urinary tract symptoms Category: Medical (2) Bladder trabeculation: Code(s): N32.89 - Other specified disorders of bladder Category: Medical (3) Bladder wall thickening: Code(s): N32.89 - Other specified disorders of bladder Category: Medical (4) Urinary retention: Code(s): R33.9 - Retention of urine, unspecified Category: Medical Plan In office urinalysis results reviewed with the patient today; as noted above. PVR 18ml's. Recent PSA results reviewed with the patient today; as noted above Continue flomax as prescribed; will increase to 2 capsules per day. Discussed possible near future in office cystoscopy if symptoms arise/ worsen Discussed, educated, and stressed the importance of managing diabeted for overall health and wellbeing. Discussed, educated, and stressed the importance of quitting/limiting nicotine dependence for overall health and well-being. Follow-up in 6 months with PVR; or sooner with any issues, concerns, and or questions. Orders: Orders AMB Urinalysis Automated Today Z13.9 - Encounter for screening, unspecified AMB Post Void Residual by ultrasound Today N40.0 - Benign prostatic hyperplasia without lower urinary tract symptoms Medications: Changed From tamsulosin 0.4 mg PO BEDTIME 90 days 90 caps 3RF To tamsulosin this is an increase in dose 0.8 mg (2 x 0.4 mg) PO BEDTIME 90 days 180 caps 3RF Patient Instructions: The patient had an opportunity to ask questions regarding the treatment plan. All questions were answered. Physical exam, labs, and imaging were discussed and reviewed in detail. As well as risks, benefits, and discussion of treatment choices. No major barriers to understanding were identified. The patient expressed understanding and agreement with the above treatment plan. The patient was made aware they should contact our office by phone for worsening of their current condition, the appearance of new symptoms, or with any questions or concerns. Compliance is encouraged with any medications and follow up testing that is ordered. It is a privilege to be allowed the opportunity to participate in? your urological care.? Again, if you have any questions or concerns If you have any questions or concerns please do not hesitate to contact me. The office is [phone]. This note is constructed using voice recognition software. While every effort has been made to ensure accuracy christmas tree grader errors may have been included. Yours sincerely, JANET Brown Coding Level of Care Code Est Pt Level 3 (62654) Diagnoses Enlarged prostate N40.0 Bladder trabeculation N32.89 Bladder wall thickening N32.89 Urinary retention R33.9 CPT Codes Post Residual Void - PVR CPT Code: 06917-Itwd Void Residual by ultrasound ([id number])
== END 2024-07-04 15:54 | disposition home or self-care (01) ==
LOC: HO.HUSH 15:20
PROVIDERS: PCP Internal Medicine; Visit Provider Nurse Practitioner Family
DX: N40.0 Benign prostatic hyperplasia without lower urinary tract symptoms (principal); N32.89 Other specified disorders of bladder; R33.9 Retention of urine, unspecified; Z13.9 Encounter for screening, unspecified
CPT/HCPCS: 99213

== ENCOUNTER → 2024-07-04 15:19 | Outpatient (BNVA) | payer OTHER, SELFPAY | PROVIDERS: PCP Internal Medicine; Visit Provider Nurse Practitioner Family | DX: N40.1 Benign prostatic hyperplasia with lower urinary tract symptoms (principal); R33.8 Other retention of urine; N32.89 Other specified disorders of bladder; Z79.899 Other long term (current) drug therapy | CPT/HCPCS: 51798; 81003 ==

== ENCOUNTER 2024-07-06 09:02 | Outpatient (AMB) | payer OTHER, SELFPAY ==
--- NOTE | 2024-07-06 09:05 | MHC.OFFVIS ---
Vital Signs 07/06/24 09:15 Height 5 ft 10 in Weight 242 lb BMI 34.7 Intake Visit Reasons: Inj-B/L shoulder inj-last 12/14/23 Intake Note: Paolo a 57 year old male who presents today for bilateral shoulder injections, last injections on 07/08/23. Patient reports last injection provided relief. Allergies lisinopril Allergy (Severe, Verified 07/06/24 09:15) Rash HPI HPI Inj-B/L shoulder inj-last 12/14/23: Details: A 58-year-old gentleman returns to the office today for a follow-up bilateral shoulder pain. Was last seen in November of 2023 we had bilateral shoulder injections which were quite helpful. I was able to perform most activities without discomfort up until recently. [facility] Medical History Hematuria Lower urinary tract symptoms Abdominal pain Metabolic encephalopathy History of sepsis Generalized weakness Leukocytosis Abdominal pain, acute Personal history of colonic polyps Diverticulosis History of paresthesia Chronic back pain Uncontrolled type 2 diabetes mellitus with hyperglycemia Hypertension Diabetes Surgical History Hx of colonoscopy No pertinent past surgical history Family History Father Diabetes Mother Osteoporosis Social History Household Members: Spouse Household Members Other:: Housing: House Do you presently have visiting nurse or other home services: No Alcohol intake: never Patient Tobacco Use Status: Former Tobacco user Tobacco use type: Cigarette Second Hand Smoke Exposure: No Substance Use Type: Opiates service: No Current occupational status: employed 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 Tenderness over the bicipital groove and along the deltoid region of the shoulder. Forward flexion to 175, external rotation to 90, internal rotation to S1. 5/5 RTC strength. Negative Viera and cross body abduction. NVI. Office Procedures AMB Joint Injection/Aspiration Joint Injection/Aspiration Primary Site: right shoulder Secondary Site: left shoulder Prep: site was prepped using aseptic technique, ethochloride spray was applied and injection warnings given Injected: 40 mg of, DepoMedrol, with 8 mL of, 1% plain lidocaine and in the subcromial space Approach Used: posterolateral Procedure: The patient tolerated the procedure well and there was some relief with the local anesthesia Coding - Glenohumeral/Tronchanteric Bursa/Intraarticular Procedure code (CPT) selection complete Assessment & Plan Assessment & Plan (1) Tendonitis of left rotator cuff: Code(s): M75.82 - Other shoulder lesions, left shoulder Category: Medical Plan We discussed options today, which include steroid injection. The patient did consent to move forward with the bilateral shoulder injection, which was tolerated well. I recommended rest, ice, and elevation and OTC anti-inflammatories as needed for discomfort. If symptoms persist or worsen over the next 6-8 weeks, patient will contact the office, otherwise follow-up as needed. We also discussed diabetes and the effect the steroid injection can have on their blood glucose levels; therefore, they will continue to monitor these very closely over the next 72 hours. If there are concerns, they should report to the ED immediately. Coding Level of Care Code Est Pt Level 3 (24417) Complex EM visit Add On G2211 Diagnoses Tendonitis of left rotator cuff M75.82 CPT Codes Coding - Joint 7: - Glenohumeral/Tronchanteric Bursa/Intraarticular ([id number])
[2024-07-06 09:15] VITALS: BMI 34.7
== END 2024-07-06 09:26 | disposition home or self-care (01) ==
LOC: HO.HOS 09:02
PROVIDERS: PCP Internal Medicine; Visit Provider Physician Assistant
DX: M75.82 Other shoulder lesions, left shoulder (principal); M75.81 Other shoulder lesions, right shoulder
CPT/HCPCS: 20610; 99213

== ENCOUNTER → 2024-07-06 09:02 | Outpatient (BNVA) | payer OTHER, SELFPAY | PROVIDERS: PCP Internal Medicine; Visit Provider Physician Assistant | DX: M75.82 Other shoulder lesions, left shoulder (principal); M25.511 Pain in right shoulder | CPT/HCPCS: 20610; J1010; J2003 ==

== ENCOUNTER 2024-08-04 08:23 | Outpatient (REF) | payer OTHER, SELFPAY ==
[2024-08-04 09:46] LABS: TSH reflex Free T4 0.23 uIU/mL (0.32-4.0)
[2024-08-04 09:50] LABS: Prostate Specific Antigen 0.53 ng/mL (<0.05-4.0)
[2024-08-04 10:37] LABS: Free T4 (Free Thyroxine) 1.15 ng/dL (0.71-1.85)
== END 2024-08-04 08:24 | disposition home or self-care (01) ==
LOC: HO.LAB 08:23
PROVIDERS: PCP Internal Medicine; Referring Provider Nurse Practitioner Family; Visit Provider Internal Medicine
DX: Z00.00 Encounter for general adult medical examination without abnormal findings (principal); Z12.5 Encounter for screening for malignant neoplasm of prostate; N40.1 Benign prostatic hyperplasia with lower urinary tract symptoms; E78.00 Pure hypercholesterolemia, unspecified; L84 Corns and callosities
CPT/HCPCS: 36415; 84153; 84439; 84443

== ENCOUNTER 2024-09-04 13:14 | Outpatient (REF) | payer OTHER, SELFPAY ==
--- NOTE | ~2024-09-04 | XR_ITS ---
EXAMINATION: X-ray knee, bilaterally. CLINICAL INFORMATION: Knee pain TECHNIQUE: AP view in standing position both knees. Lateral and sunrise views. COMPARISON: August 12, 2023. FINDINGS: Mild joint space narrowing involving the medial compartment both knees. No acute cortical disruption or malalignment. No suprapatellar bursa joint effusion. No lytic or blastic lesions. Focal well-corticated calcification at the quadriceps tendon insertion, anterior superior patella. XR/XR Knee Sherif 3V IMPRESSION: Medial compartmental osteoarthrosis, mild, bilaterally. Consider calcific tendinopathy/tendinosis left quadriceps tendon. Electronically signed by: Timur Fish MD 09/04/2024 02:45 PM EDT
--- OUTSIDE RECORDS SUMMARY | 2024-09-04 13:53 | XMS_ITS ---
Author Name [facility] Organization Unknown Allergies Allergen Reaction Severity Comment Documented Date Source Statu s NO KNOWN DRUG ALLERGIES ENS_ORTH OCT Problems Problem Status Onset Date Problem Type Date of Resoluti on Source Acute bilateral low back pain active 2022-03-03 ProblemAct ENS_ORTHOCT Acute neck pain active 2022-06-20 ProblemAct EN S_ORTHOCT Encounters Encounter Type Encounter Reason Primary Diagnosis Location Date Ambulatory [facility] 03/10/2022 Ambulatory [facility] 03/03/2022 Ambulatory [facility] 02/04/2022 Ambulatory [facility] 02/03/2022 Amb[facility] 02/02/2022 Care Team Organization Name Specialty Phone Email Start Date End [facility] YULIANA TORRES Primary Care 03/03/202209/28 [facility] 02/04/2022
== END 2024-09-04 13:15 | disposition home or self-care (01) ==
LOC: HO.HOSX 13:14
PROVIDERS: Visit Provider Physician Assistant
DX: M17.0 Bilateral primary osteoarthritis of knee (principal)
CPT/HCPCS: 20610; 73562; J1010; J2003

== ENCOUNTER 2024-09-04 14:21 | Outpatient (AMB) | payer OTHER, SELFPAY ==
--- NOTE | 2024-09-04 14:42 | A.OFFVIS_ITS ---
Intake Visit Reasons: New Prob - B/L knee pain Intake Note: Paolo is a 58 year old male who presents today as an established patient for a new problem visit to evaluate bilateral knee pain. Patient reports his pain has been present for over a month with his right knee pain being the worse. He descrinbes his pain as a sharp pain that travels down from his lower back down to his feet as well as numbness and tingling. No recent injury however he mentions a previous injury to his knee and was seen here for this injury. No previous tx. Finds no relief with oxycodone, morphine or naproxen. Allergies lisinopril Allergy (Severe, Verified 09/04/24 14:47) Rash Medication List - Last Reconciled 09/04/24 by Jese Jarquin PA-C aspirin 81 mg PO DAILY bisacodyl (Laxative (bisacodyl)) 10 mg (2 x 5 mg) PO BEDTIME blood sugar diagnostic (FreeStyle Lite Strips) As directed blood-glucose meter (FreeStyle Lite Meter kit) As directed once a day flash glucose scanning reader (FreeStyle Norma 2 [place]) As directed flash glucose sensor (FreeStyle Norma 2 Sensor kit) DIRECTED TO TEST BLOOD SUGAR DIRECTED lancets (FreeStyle Lancets) As directed once a day linaclotide (Linzess) 290 mcg PO QAM 90 days losartan 100 mg PO DAILY morphine ER 30 mg PO BID oxycodone 20 mg PO QID PRN pen needle, diabetic (BD Latonya 2nd Gen Pen Needle) As directed once a week pregabalin (Lyrica) 300 mg PO DAILY rosuvastatin 20 mg PO BEDTIME tamsulosin 0.8 mg (2 x 0.4 mg) PO BEDTIME 90 days tirzepatide (Mounjaro) 7.5 mg (0.5 mL) subcut QWEEK HPI HPI New Prob - B/L knee pain: Details: 58 yo male presents to the office today for bilat knee pain, right worse than the left. He has discomfort with daily activities which include stairs and prolonged walking. He complains of stiffness and ambulates with a cane. [facility] Medical History Hematuria Lower urinary tract symptoms Abdominal pain Metabolic encephalopathy History of sepsis Generalized weakness Leukocytosis Abdominal pain, acute Personal history of colonic polyps Diverticulosis History of paresthesia Chronic back pain Uncontrolled type 2 diabetes mellitus with hyperglycemia Hypertension Diabetes Surgical History Hx of colonoscopy No pertinent past surgical history Family History Father Diabetes Mother Osteoporosis Social History Household Members: Spouse Household Members Other:: Housing: House Do you presently have visiting nurse or other home services: No Alcohol intake: never Patient Tobacco Use Status: Former Tobacco user Tobacco use type: Cigarette Second Hand Smoke Exposure: No Substance Use Type: Opiates service: No Current occupational status: employed 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 Mild joint effusion on the right. Calf supple non tender. NVI. Office Procedures AMB Joint Injection/Aspiration Joint Injection/Aspiration Details: right knee asp unsuccessful Primary Site: right knee Secondary Site: left knee Prep: site was prepped using aseptic technique, ethochloride spray was applied and injection warnings given Injected: 40 mg of, DepoMedrol, with 8 mL of and 1% plain lidocaine Approach Used: anterolateral Coding 31419 - Glenohumeral/Tronchanteric Bursa/Intraarticular Procedure code (CPT) selection complete Results Reviewed Results Reviewed: Xrays were obtained in the office today and personally reviewed by me of zeke knee show mild PF OA Assessment & Plan Assessment & Plan (1) Osteoarthritis of patellofemoral joints, bilateral: Code(s): M17.0 - Bilateral primary osteoarthritis of knee Category: Medical Plan: Attempted aspiration of the right knee which was unsuccessful. Right knee was then injected with steroid which he tolerated well. Left knee was injected with steroid which he tolerated well. I did instruct him to keep an eye on his sugar levels over the next 72 hours to monitor in the event the in steroid elevates the sugars. I stressed the importance of exercise and conditioning exercises to work on managing his arthritic symptoms. If symptoms persist or worsen he will contact our office otherwise injections every 3-6 months as needed. Orders: Orders XR Knee Sherif 3V Today M25.561 - Pain in right knee, M25.562 - Pain in left knee Coding Level of Care Code Est Pt Level 3 (10516) Complex EM visit Add On G2211 Diagnoses Osteoarthritis of patellofemoral joints, bilateral M17.0 CPT Codes Coding - Joint 7: 86981 - Glenohumeral/Tronchanteric Bursa/Intraarticular ([id number])
== END 2024-09-04 15:33 | disposition home or self-care (01) ==
LOC: HO.HOS 14:21
PROVIDERS: PCP Internal Medicine; Visit Provider Physician Assistant
DX: M17.0 Bilateral primary osteoarthritis of knee (principal)
CPT/HCPCS: 20610; 99213

== ENCOUNTER → 2024-09-04 14:27 | Outpatient (BNV) | payer OTHER, SELFPAY | PROVIDERS: Visit Provider Radiology Diagnostic Radiology | DX: M17.0 Bilateral primary osteoarthritis of knee (principal) | CPT/HCPCS: 73562 ==

== ENCOUNTER 2024-11-17 10:08 | Outpatient (REF) | payer OTHER, SELFPAY ==
[2024-11-17 11:16] LABS: Hemoglobin A1C 157.3944 umol/L; Total Hemoglobin (HGBA1C) 3800.0908 umol/L
[2024-11-17 11:41] LABS: Alanine Aminotransferase 16 U/L (0-40); Albumin Level 4.1 g/dL (3.5-5.0); Alkaline Phosphatase 80 U/L (39-117); Anion Gap 10 (12-20); Aspartate Amino Transferase 19 U/L (5-37); Blood Urea Nitrogen 11 mg/dL (9-16); Calcium 9.5 mg/dL (8.4-10.2); Carbon Dioxide 29 mmol/L (22-29); Chloride 107 mmol/L (96-108); Estimated Glomerular Filt Rate > 60; Potassium 4.1 mmol/L (3.3-5.1); Sodium 142 mmol/L (135-145); Total Protein 7.1 g/dL (6.5-8.0); Uric Acid 3.2 mg/dL (3.4-7.0)
[2024-11-19 15:03] LABS: Anti Nuclear Antibody Screen NEGATIVE (NEGATIVE)
== END 2024-11-17 10:09 | disposition home or self-care (01) ==
LOC: HO.LAB 10:08
PROVIDERS: PCP Internal Medicine; Visit Provider Internal Medicine
DX: Z01.84 Encounter for antibody response examination (principal); E11.9 Type 2 diabetes mellitus without complications; E78.5 Hyperlipidemia, unspecified; I10 Essential (primary) hypertension; M13.0 Polyarthritis, unspecified; M25.461 Effusion, right knee
CPT/HCPCS: 36415; 80053; 83036; 84550; 85652; 86038; 86200; 86431

== ENCOUNTER 2025-02-06 14:44 | Outpatient (AMB) | payer OTHER, SELFPAY ==
--- NOTE | 2025-02-06 14:49 | MHC.OFFVIS ---
Vital Signs 02/06/25 14:50 Height 5 ft 10 in Weight 246 lb 14.684 oz BMI 35.4 BP 119/81 Blood Pressure Location Rt brachial Position Sitting Pulse 73 Intake Visit Reasons: diverticulitis Intake Note: Patient in office today in follow up of diverticulitis. CC: Patient c/o constipation. Denies having any GI symptoms. Automatic Equipment Technician Required: No Accompanied by: Self / Same As Patient Allergies lisinopril Allergy (Severe, Verified 02/06/25 15:05) Rash HPI HPI diverticulitis: Details: Assessment & Plan (1) Chronic idiopathic constipation: Code(s): K59.04 - Chronic idiopathic constipation Category: Medical Plan He tweaked his back last week lifting something and has severe radicular pain, he has been working from home. He did try the bisacodyl bid and with the Linzess he is moving his bowels well. ROV 6 mos. Medications: Changed From linaclotide (Linzess) 290 mcg PO QAM 30 days 30 caps 6RF K57.92 - Diverticulitis of intestine, part unspecified, without perforation or abscess without bleeding, K59.04 - Chronic idiopathic constipation To linaclotide (Linzess) 290 mcg PO QAM 90 caps 1RF 90 days K57.92 - Diverticulitis of intestine, part unspecified, without perforation or abscess without bleeding, K59.04 - Chronic idiopathic constipation Refilled bisacodyl (Dulcolax (bisacodyl)) 10 mg (2 x 5 mg) PO BID 120 tabs 6RF 30 days K59.04 - Chronic idiopathic constipation 8 TODAYS VISIT [facility] Medical History (Updated 02/06/25 @ 15:30 by CRYSTAL Thakkar) Flank pain Leukocytosis Nicotine dependence, cigarettes, uncomplicated Hematuria Lower urinary tract symptoms Abdominal pain Metabolic encephalopathy History of sepsis Generalized weakness Abdominal pain, acute Personal history of colonic polyps Diverticulosis History of paresthesia Chronic back pain Uncontrolled type 2 diabetes mellitus with hyperglycemia Hypertension Diabetes Surgical History Hx of colonoscopy No pertinent past surgical history Family History Father Diabetes Mother Osteoporosis Social History Household Members: Spouse Household Members Other:: Housing: House Do you presently have visiting nurse or other home services: No Alcohol intake: never Patient Tobacco Use Status: Former Tobacco user Tobacco use type: Cigarette Second Hand Smoke Exposure: No Substance Use Type: Opiates service: No Current occupational status: employed 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, 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 Review of Systems Const Denies fatigue, Denies fever(s), Denies night sweats, Denies poor appetite and Denies weight loss ENT Reports Normal hearing present, Denies dental pain, Denies dysphagia, Denies hearing loss, Denies mouth pain, Denies odynophagia, Denies throat swelling, Denies tongue swelling and Reports other (Dentition adequate) Card Reports no additional complaints Resp Reports no additional complaints GI Details: Denies abdominal pain, Denies melena, Denies bloating, Denies hematochezia, Reports constipation, Denies GI cramping, Denies dysphagia, Denies excessive flatus, Denies early satiety, Denies heartburn, Denies diarrhea, Denies nausea, Denies odynophagia, Denies vomiting and Denies hematemesis Musc Reports arthralgias, Reports joint swelling and Reports stiffness Skin/Breast Denies pruritus, Denies lesions, Denies rash and Denies jaundice Neuro Reports Normal hearing present and Denies Abnormal speech present Endo Denies fatigue Aller/Immun Denies throat swelling and Denies tongue swelling Physical Exam Vital Signs: Last Vital Signs Pulse 73 02/06/25 14:50 BP 119/81 02/06/25 14:50 BMI result Body Mass Index 35.4 Const General: cooperative, no acute distress, well developed and well groomed Nutritional Appearance: well nourished and obese Orientation/consciousness: oriented to person, oriented to place and oriented to time Limitations: No language barrier HEENT Head: Yes normocephalic and Yes atraumatic Eyes General: appearance normal, both eyes and all related structures Pupils: Equal, round and reactive pupils present Neck Neck: Yes normal visual inspection and Yes no lymphadenopathy Thyroid: Thyroid normal Resp Effort & Inspection: normal respiratory effort and able to speak in complete sentences Auscultation: clear to auscultation bilaterally Cardio Rate: regular rate Rhythm: regular rhythm Heart sounds: Normal, physiologic split S2 sound present Peripheral pulses: radial pulses present and posterior tibial pulses present GI Inspection: No distended, No Abdominal panniculus present and Yes obesity Palpation (GI): Soft to palpation, nontender, no guarding, not rigid and No hepatosplenomegaly present Percussion: Yes normal to percussion Auscultation: normal bowel sounds Rectal Exam - Male: Yes deferred Skin General skin exam: no rashes or lesions noted, turgor normal, skin not dry, no jaundice, No spider nevi and no striae Rashes: no rashes Nails: normal Neuro General: oriented to person, oriented to place and oriented to time Cranial nerves: Yes Equal, round and reactive pupils present and Yes Normal hearing present Speech: No Abnormal speech present Extrem General: Yes normal to inspection, No clubbing, No cyanosis and No edema Psych Appearance: grossly normal and well kempt Mental Status: mental status grossly normal Speech and movement: Normal speech and movement present Affect: normal affect Attitude: cooperative Thought process: Normal thought process present and not confabulating Thought content: Normal thought content present Insight: Good insight present (Psych) Judgement: Good judgement present (Psych) Assessment & Plan Assessment & Plan (1) Chronic idiopathic constipation: Code(s): K59.04 - Chronic idiopathic constipation Category: Medical (2) Diverticulitis: Code(s): K57.92 - Diverticulitis of intestine, part unspecified, without perforation or abscess without bleeding Category: Medical (3) Sessile colonic polyp: Comment: 2022=TA repeat 5 years Code(s): K63.5 - Polyp of colon Category: Medical Plan Subjective Patient presents for follow-up of constipation management and medication refills. Reports Linzess has been effective with good control; recently ran out after initial 90-day supply and symptoms prompted return. Uses small bisacodyl tablets as needed when ?really, really constipated,? sometimes together with Linzess, with relief. Has used [id number] options when Linzess ran out. Denies recent diverticulitis attacks. Notes ongoing knee issue with fluid accumulation extending posteriorly, causing difficulty with walking, sitting, and driving; has orthopedic appointment scheduled next week. Relevant Past Medical, Social, and Family History - Type 2 diabetes treated with Mounjaro; control reported as good. - Chronic pain on oxycodone and morphine, recognized contributors to constipation. - Prior colonoscopy in 2022 with sessile polyp; surveillance discussed as every 5 years (next due 2027). Objective - Colonoscopy 2022: sessile polyp; surveillance interval set to 5 years (repeat 2027). Assessment & Plan Chronic constipation, opioid-associated: Constipation well controlled on Linzess with intermittent adjunct bisacodyl for breakthrough symptoms. Contributing medications include oxycodone and morphine. No recent diverticulitis episodes reported. - Refill Linzess; continue as previously effective. - Refill bisacodyl for PRN use when more constipated. - Reinforce adherence to bowel regimen to maintain regularity and reduce risk of complications. - Pharmacy: [facility] [address]. - Follow-up annually given stability; sooner if control worsens or concerns arise. Knee effusion with posterior extension (suspected popliteal involvement): Symptomatic with impaired ambulation, sitting, and driving. - Proceed with scheduled orthopedic evaluation next week for further assessment and management. Type 2 diabetes mellitus: On Mounjaro with good reported control. - Continue current regimen; continue diabetes management with primary team. History of colon polyp with surveillance colonoscopy: Sessile polyp in 2022; 5-year surveillance interval. - Plan repeat colonoscopy in 2027 per current surveillance schedule. Medications: Refilled bisacodyl (Laxative (bisacodyl)) 10 mg (2 x 5 mg) PO BEDTIME 60 tabs 3RF K59.04 - Chronic idiopathic constipation linaclotide (Linzess) 290 mcg PO QAM 90 caps 4RF 90 days K57.92 - Diverticulitis of intestine, part unspecified, without perforation or abscess without bleeding, K59.04 - Chronic idiopathic constipation Coding Level of Care Code Est Pt Level 3 (58840) Diagnoses Chronic idiopathic constipation K59.04 Diverticulitis K57.92 Sessile colonic polyp K63.5
[2025-02-06 14:50] VITALS: BP 119/81; PULSE 73; BMI 35.4
== END 2025-02-06 15:31 | disposition home or self-care (01) ==
LOC: HO.HGI 14:44
PROVIDERS: PCP Internal Medicine; Visit Provider Nurse Practitioner
DX: K59.04 Chronic idiopathic constipation (principal); K57.92 Diverticulitis of intestine, part unspecified, without perforation or abscess without bleeding; K63.5 Polyp of colon
CPT/HCPCS: 99213